=== PATIENT | male | born 1960 | race Caucasian/White ===

== ENCOUNTER 2020-10-11 13:00 | Inpatient (IN) | payer BC ==
[~2020-10-11] VITALS: Ht 182.9 cm; Wt 78.1 kg
[2020-10-11] VITALS (8 sets, daily range): BP systolic 94–118; BP diastolic 56–70
[2020-10-11] MEDS ORDERED: BENZTROPINE MESY1 MG PO (13:06)
[2020-10-11] MEDS ORDERED: CHRONULAC30 ML PO (13:07)
[2020-10-11] MEDS ORDERED: OS-CAL500 MG PO (13:07)
[2020-10-11] MEDS ORDERED: KLONOPIN1 MG PO (13:07)
[2020-10-11] MEDS ORDERED: LITHIUM CARBON300 MG PO (13:08)
[2020-10-11] MEDS ORDERED: PROTONIX40 MG PO (13:08)
[2020-10-11] MEDS ORDERED: SILVADENE20 GM TP (13:08)
[2020-10-11] MEDS ORDERED: ALDACTONE25 MG PO (13:09)
[2020-10-11] MEDS ORDERED: ULTRAM50 MG PO (13:09)
[2020-10-11] MEDS ORDERED: VITAMIN B-1100 M1 PO (13:09)
[2020-10-11] MEDS ORDERED: ZYPREXA20 MG PO (13:09)
[2020-10-11 13:46] LABS: CALC OSMOLALITY 297 mosm/kg (275-300); CALCIUM 9.4 mg/dL (8.5-10.1); CARBON DIOXIDE 26.6 mmol/L (21.0-32.0); CHLORIDE - SERUM 111 mmol/L (98-107); GLUCOSE 112 mg/dL (74-106); POTASSIUM - SERUM 3.7 mmol/L (3.5-5.1); SODIUM 148 mmol/L (136-145); UREA NITROGEN 20 mg/dL (7-18); eGFR NON AFRICAN AMERICAN 81 mL/min (90-120)
[2020-10-11 13:47] LABS: BASOPHILS 0.3 % (0-2); EOSINOPHILS 0.6 % (0-7); HEMATOCRIT 43.6 % (42.0-54.0); IMMATURE GRANULOCYTES 0.2 % (0-5); LYMPHOCYTE ABS# 1.96 10x3/uL (1.32-3.57); LYMPHOCYTES 17.1 % (15-50); MCH 31.3 pg (26.0-34.0); MCHC 32.1 g/dL (31.0-37.0); MCV 97.3 fL (80.0-100.0); MEAN PLATELET VOLUME 9.3 fL (7.4-10.4); MONOCYTES 14.5 % (2-11); NEUTROPHIL ABS# 7.72 10x3/uL (1.78-5.38); NEUTROPHILS 67.3 % (40-80); PLATELET COUNT 261 10x3/uL (130-400); RBC 4.48 10x6/uL (4.20-6.10); RDW 13.9 % (11.5-14.5); WBC 11.5 10x3/uL (4.8-10.8)
[2020-10-11 13:52] LABS: ALBUMIN 2.8 g/dL (3.4-5.0); ALKALINE PHOSPHATASE 154 U/L (30-120); ALT (SGPT) 27 U/L (10-68); AMYLASE - SERUM 32 U/L (25-115); BILIRUBIN - TOTAL 1.16 mg/dL (0.2-1.3); LIPASE 121 U/L (73-393); PROTEIN - SERUM 7.3 g/dL (6.4-8.2)
[2020-10-11 13:52] LABS: APTT 32.2 SECONDS (22.8-39.4); INR 1.32 (0.85-1.17); PROTIME 15.2 SECONDS (11.6-15.0)
[2020-10-11 14:01] LABS: UDS - AMPHET NEGATIVE QUAL (NEGATIVE); UDS - BARB NEGATIVE QUAL (NEGATIVE); UDS - BENZO NEGATIVE QUAL (NEGATIVE); UDS - COCAINE NEGATIVE QUAL (NEGATIVE); UDS - OPIATE NEGATIVE QUAL (NEGATIVE); UDS - PCP NEGATIVE QUAL (NEGATIVE); UDS - THC NEGATIVE QUAL (NEGATIVE)
[2020-10-11 14:22] LABS: BILIRUBIN NEGATIVE (NEGATIVE); KETONE SMALL mg/dL (NEGATIVE); NITRITE NEGATIVE (NEGATIVE); UROBILINOGEN 8 mg/dL (< 2); WHITE CELLS - URINE 0-5 HPF (0-1)
[2020-10-11 14:23] LABS: BACTERIA FEW HPF (NONE SEEN); SQUAMOUS EPITHELIAL 0-5 HPF (0-4)
[2020-10-11 22:16] LABS: CKMB 0.3 U/L (0.0-3.6); CREATINE KINASE 150 UL (21-232)
[2020-10-11 22:17] LABS: TROPONIN-I < 0.017 ng/mL (0.000-0.060)
[2020-10-12] VITALS (9 sets, daily range): BP systolic 90–139; BP diastolic 50–83; BMI 23.0
[2020-10-12 07:12] LABS: BASOPHILS 0.4 % (0-2); EOSINOPHILS 1.3 % (0-7); HEMATOCRIT 40.7 % (42.0-54.0); IMMATURE GRANULOCYTES 0.2 % (0-5); LYMPHOCYTE ABS# 1.67 10x3/uL (1.32-3.57); LYMPHOCYTES 16.3 % (15-50); MCHC 31.9 g/dL (31.0-37.0); MCV 96.9 fL (80.0-100.0); MEAN PLATELET VOLUME 9.2 fL (7.4-10.4); MONOCYTES 12.5 % (2-11); NEUTROPHIL ABS# 7.11 10x3/uL (1.78-5.38); NEUTROPHILS 69.3 % (40-80); PLATELET COUNT 247 10x3/uL (130-400); RDW 13.9 % (11.5-14.5); WBC 10.3 10x3/uL (4.8-10.8)
--- NOTE | 2020-10-12 07:23 | NUR ---
REPORT RECEIVED FROM ALY HIDALGO. PATIENT CALM, NO ACUTE DISTRESS.
[2020-10-12 07:30] LABS: ALBUMIN 2.4 g/dL (3.4-5.0); ALKALINE PHOSPHATASE 139 U/L (30-120); ALT (SGPT) 23 U/L (10-68); BILIRUBIN - TOTAL 1.01 mg/dL (0.2-1.3); CALC OSMOLALITY 291 mosm/kg (275-300); CALCIUM 8.9 mg/dL (8.5-10.1); CARBON DIOXIDE 26.6 mmol/L (21.0-32.0); CHLORIDE - SERUM 113 mmol/L (98-107); CKMB 0.3 U/L (0.0-3.6); CREATINE KINASE 121 UL (21-232); CREATININE - SERUM 0.8 mg/dL (0.6-1.3); GLUCOSE 126 mg/dL (74-106); MAGNESIUM - SERUM 2.6 mg/dL (1.8-2.4); PHOSPHOROUS 2.7 mg/dL (2.5-4.9); POTASSIUM - SERUM 3.3 mmol/L (3.5-5.1); PRO BNP 517 pg/mL (0-125); PROTEIN - SERUM 6.7 g/dL (6.4-8.2); SODIUM 145 mmol/L (136-145); THYROID STIMULATING HORMONE 0.97 uIU/mL (0.36-3.74); TROPONIN-I < 0.017 ng/mL (0.000-0.060); UREA NITROGEN 16 mg/dL (7-18); eGFR NON AFRICAN AMERICAN > 90 mL/min (90-120)
--- NOTE | 2020-10-12 09:09 | NUR ---
NURSING ROUND [id number]. NAD. NO COMPLAINTS. BED ALARM IN USE, IVF INFUSING, IV PATENT. CONFUSED, CALM, COOPERATIVE.
--- NOTE | 2020-10-12 09:58 | NUR ---
ROUNDING SPRINKLING SYSTEM IRRIGATOR NOTIFIED THAT PATIENT IS HAVING DIFFICULTY TOLERATING PO LACTULOSE.
[2020-10-12 10:05] LABS: CKMB 0.4 U/L (0.0-3.6); CREATINE KINASE 117 UL (21-232); TROPONIN-I < 0.017 ng/mL (0.000-0.060)
--- NOTE | 2020-10-12 10:12 | NUR ---
[facility] NOTIFIED OF PATIENT STATUS.
--- NOTE | 2020-10-12 11:21 | NUR ---
NAD. PATIENT AWAKE, CONFUSED.
--- NOTE | 2020-10-12 13:03 | NUR ---
, Susie PORTILLO, NOTIFIED OF PATIENT STATUS.
--- NOTE | 2020-10-12 13:06 | NUR ---
DR POWERS NOTIFIED THAT POTASSIUM LEVEL IS 2.9.
[2020-10-13 01:00] VITALS: BP 111/80
[2020-10-13 03:30] VITALS: BP 108/66
[2020-10-13 09:27] LABS: BASOPHILS 0.5 % (0-2); EOSINOPHILS 3.9 % (0-7); HEMATOCRIT 44.3 % (42.0-54.0); HEMOGLOBIN 14.2 g/dL (13.5-17.5); IMMATURE GRANULOCYTES 0.1 % (0-5); LYMPHOCYTE ABS# 1.84 10x3/uL (1.32-3.57); LYMPHOCYTES 21.9 % (15-50); MCH 30.7 pg (26.0-34.0); MCHC 32.1 g/dL (31.0-37.0); MCV 95.9 fL (80.0-100.0); MEAN PLATELET VOLUME 9.4 fL (7.4-10.4); MONOCYTES 7.7 % (2-11); NEUTROPHIL ABS# 5.54 10x3/uL (1.78-5.38); NEUTROPHILS 65.9 % (40-80); PLATELET COUNT 246 10x3/uL (130-400); RBC 4.62 10x6/uL (4.20-6.10); RDW 13.7 % (11.5-14.5); WBC 8.4 10x3/uL (4.8-10.8)
[2020-10-13 09:44] LABS: ALBUMIN 2.4 g/dL (3.4-5.0); ALKALINE PHOSPHATASE 141 U/L (30-120); ALT (SGPT) 24 U/L (10-68); BILIRUBIN - TOTAL 0.82 mg/dL (0.2-1.3); CALC OSMOLALITY 292 mosm/kg (275-300); CHLORIDE - SERUM 113 mmol/L (98-107); CREATININE - SERUM 0.7 mg/dL (0.6-1.3); GLUCOSE 101 mg/dL (74-106); MAGNESIUM - SERUM 2.2 mg/dL (1.8-2.4); PHOSPHOROUS 3.2 mg/dL (2.5-4.9); POTASSIUM - SERUM 3.4 mmol/L (3.5-5.1); SODIUM 147 mmol/L (136-145); UREA NITROGEN 14 mg/dL (7-18); eGFR NON AFRICAN AMERICAN > 90 mL/min (90-120)
[2020-10-13 16:24] LABS: INR 1.25 (0.85-1.17); PROTIME 14.5 SECONDS (11.6-15.0)
--- NOTE | 2020-10-13 17:20 | NUR ---
CALLED [facility] AND SPOKE TO BARBARA. PATIENT LAST TOOK MEDICATIONS THU NIGHT AND HAS NOT HAD ANYTHING ON THURSDAY BEFORE COMING TO HOSPITAL
[2020-10-13 19:37] VITALS: BP 119/76; BMI 20.7
[2020-10-13 19:54] VITALS: BP 143/97
--- NOTE | 2020-10-13 22:30 | NUR ---
ATTEMPTED MULTIPLE TIMES LAST NIGHT TO GIVE PT LACTULOSE, PT REFUSED AND TRIED TO KICK THIS NURSE
--- NOTE | 2020-10-14 04:41 | NUR ---
I have reviewed this patient and I concur with the Shift Assessment completed by the Licensed Practical Nurse today this shift.
[2020-10-14 05:52] VITALS: BP 127/86
[2020-10-14 07:42] LABS: INR 1.21 (0.85-1.17); PROTIME 14.2 SECONDS (11.6-15.0)
[2020-10-14 07:52] LABS: ALBUMIN 2.3 g/dL (3.4-5.0); ALKALINE PHOSPHATASE 137 U/L (30-120); ALT (SGPT) 24 U/L (10-68); BILIRUBIN - TOTAL 0.63 mg/dL (0.2-1.3); CALC OSMOLALITY 289 mosm/kg (275-300); CALCIUM 9.2 mg/dL (8.5-10.1); CARBON DIOXIDE 24.7 mmol/L (21.0-32.0); CHLORIDE - SERUM 111 mmol/L (98-107); CREATININE - SERUM 0.6 mg/dL (0.6-1.3); GLUCOSE 94 mg/dL (74-106); PHOSPHOROUS 3.5 mg/dL (2.5-4.9); POTASSIUM - SERUM 3.6 mmol/L (3.5-5.1); PROTEIN - SERUM 6.2 g/dL (6.4-8.2); SODIUM 145 mmol/L (136-145); UREA NITROGEN 14 mg/dL (7-18); eGFR NON AFRICAN AMERICAN > 90 mL/min (90-120)
--- NOTE | 2020-10-14 09:26 | NUR ---
PT SITTING UP IN BED. RESP EVEN AND UNLABORED. PT IS RESTLESS AND FIDGETY WITH THINGS. DENIES PAIN. IV TO LEFT FOREARM WITH D51/2 NS @ 75ML/HR INFUSING VIA PUMP. SITE WITHOUT REDNESS OR EDEMA. GENERALIZED SCABS AND SORES, SKIN TEARS. DENIES NEEDS AT THIS TIME. CL WITH REACH. ENCOURAGED TO CALL WITH NEEDS. CONTINUE POC
[2020-10-14 11:25] VITALS: BP 114/68
[2020-10-14 13:27] LABS: BASOPHILS 0.8 % (0-2); EOSINOPHILS 4.3 % (0-7); HEMATOCRIT 43.2 % (42.0-54.0); HEMOGLOBIN 14.1 g/dL (13.5-17.5); IMMATURE GRANULOCYTES 0.1 % (0-5); LYMPHOCYTE ABS# 1.71 10x3/uL (1.32-3.57); MCH 30.9 pg (26.0-34.0); MCHC 32.6 g/dL (31.0-37.0); MCV 94.7 fL (80.0-100.0); MEAN PLATELET VOLUME 9.8 fL (7.4-10.4); MONOCYTES 9.2 % (2-11); NEUTROPHIL ABS# 5.62 10x3/uL (1.78-5.38); NEUTROPHILS 65.6 % (40-80); PLATELET COUNT 246 10x3/uL (130-400); RBC 4.56 10x6/uL (4.20-6.10); RDW 13.5 % (11.5-14.5); WBC 8.6 10x3/uL (4.8-10.8)
[2020-10-14 18:13] VITALS: BP 136/92
--- NOTE | 2020-10-14 19:28 | NUR ---
RECEIVED REPORT, ASSUMED CARE, BREATHING EVEN UNLABORED, IV PATENT, DENIES NEEDS, CALL LIGHT IN REACH, BED LOWEST POSITION, REPOSITIONED IN BED, ENCOURAGED PT TO NOTIFY STAFF OF ANY NEEDS
--- NOTE | 2020-10-15 00:38 | NUR ---
SLEEPING, NO S/S OF DISTRESS NOTED, BREATHING EVEN UNLABORED
[2020-10-15 07:16] LABS: INR 1.14 (0.85-1.17); PROTIME 13.5 SECONDS (11.6-15.0)
[2020-10-15 07:20] LABS: ALBUMIN 2.1 g/dL (3.4-5.0); ALKALINE PHOSPHATASE 121 U/L (30-120); ALT (SGPT) 23 U/L (10-68); BILIRUBIN - TOTAL 0.44 mg/dL (0.2-1.3); CALC OSMOLALITY 280 mosm/kg (275-300); CALCIUM 8.7 mg/dL (8.5-10.1); CARBON DIOXIDE 26.9 mmol/L (21.0-32.0); CHLORIDE - SERUM 109 mmol/L (98-107); CREATININE - SERUM 0.6 mg/dL (0.6-1.3); GLUCOSE 93 mg/dL (74-106); MAGNESIUM - SERUM 2.1 mg/dL (1.8-2.4); PHOSPHOROUS 3.8 mg/dL (2.5-4.9); POTASSIUM - SERUM 3.3 mmol/L (3.5-5.1); PROTEIN - SERUM 6.3 g/dL (6.4-8.2); SODIUM 141 mmol/L (136-145); UREA NITROGEN 12 mg/dL (7-18); eGFR NON AFRICAN AMERICAN > 90 mL/min (90-120)
[2020-10-15 07:21] LABS: BASOPHILS 0.8 % (0-2); EOSINOPHILS 4.5 % (0-7); HEMATOCRIT 40.8 % (42.0-54.0); HEMOGLOBIN 13.5 g/dL (13.5-17.5); LYMPHOCYTE ABS# 1.84 10x3/uL (1.32-3.57); LYMPHOCYTES 27.8 % (15-50); MCH 30.8 pg (26.0-34.0); MCHC 33.1 g/dL (31.0-37.0); MCV 92.9 fL (80.0-100.0); MEAN PLATELET VOLUME 9.5 fL (7.4-10.4); MONOCYTES 7.7 % (2-11); NEUTROPHIL ABS# 3.93 10x3/uL (1.78-5.38); NEUTROPHILS 59.2 % (40-80); PLATELET COUNT 247 10x3/uL (130-400); RBC 4.39 10x6/uL (4.20-6.10); RDW 13.3 % (11.5-14.5); WBC 6.6 10x3/uL (4.8-10.8)
--- NOTE | 2020-10-15 08:13 | NUR ---
IN BED, DENIES NEEDS AT THIS TIME. BED LOW POSITION, CALL LIGHT IN REACH. WILL CONTINUE TO MONITOR.
[2020-10-15 09:10] VITALS: BP 113/64
[2020-10-15 12:56] VITALS: BP 101/66
[2020-10-15 17:16] VITALS: BP 116/78
--- NOTE | 2020-10-15 19:45 | NUR ---
RECEIVED BEDSIDE REPORT. PT LAYING IN BED ORIENTATED TO SELF. PIV TO RIGHT HAND PATENT AND S/L, NO REDNESS OR SWELLING. GENERALIZED SCABS/SORES ON ALL EXTREMITIES. PT SPEECH GARBLED AND APPEARS TO BE TLINGIT & HAIDA. PT UNABLE TO AMBULATE, BEDFAST AND TOTAL CARE. BED LOW, ALARM ON, CL IN REACH. WILL CONTINUE TO MONITOR.
[2020-10-15 20:00] VITALS: BP 93/46
[2020-10-16] VITALS: BP 101/42
--- NOTE | 2020-10-16 02:14 | NUR ---
K 9 HANDLER/ DEPUTY ASSISTED WITH BED BATH, FULL LININ AND GOWN CHANGE, TOLERATED WELL. BED LOW, ALARM ON, CL IN REACH.
[2020-10-16 04:00] VITALS: BP 105/67
--- NOTE | 2020-10-16 05:24 | NUR ---
COLLECTED URINE SPECIMAN VIA IN AND OUT CATH, USED STERILE TECHN, GOOD RETURN, PT TOLERATED WELL. SENT URINE TO LAB. BED LOW, ALARM ON, CL IN REACH.
[2020-10-16 07:22] LABS: BASOPHILS 0.4 % (0-2); EOSINOPHILS 2.8 % (0-7); HEMOGLOBIN 14.3 g/dL (13.5-17.5); IMMATURE GRANULOCYTES 0.1 % (0-5); LYMPHOCYTE ABS# 1.55 10x3/uL (1.32-3.57); LYMPHOCYTES 19.4 % (15-50); MCH 30.6 pg (26.0-34.0); MCHC 32.5 g/dL (31.0-37.0); MEAN PLATELET VOLUME 9.6 fL (7.4-10.4); NEUTROPHIL ABS# 5.55 10x3/uL (1.78-5.38); NEUTROPHILS 69.3 % (40-80); PLATELET COUNT 268 10x3/uL (130-400); RBC 4.68 10x6/uL (4.20-6.10); RDW 13.7 % (11.5-14.5)
[2020-10-16 07:24] LABS: INR 1.23 (0.85-1.17); PROTIME 14.4 SECONDS (11.6-15.0)
[2020-10-16 07:43] LABS: ALBUMIN 2.3 g/dL (3.4-5.0); ALKALINE PHOSPHATASE 130 U/L (30-120); ALT (SGPT) 23 U/L (10-68); BILIRUBIN - TOTAL 0.46 mg/dL (0.2-1.3); CALC OSMOLALITY 290 mosm/kg (275-300); CALCIUM 8.7 mg/dL (8.5-10.1); CARBON DIOXIDE 22.7 mmol/L (21.0-32.0); CHLORIDE - SERUM 112 mmol/L (98-107); CREATININE - SERUM 0.7 mg/dL (0.6-1.3); GLUCOSE 96 mg/dL (74-106); MAGNESIUM - SERUM 2.2 mg/dL (1.8-2.4); PHOSPHOROUS 3.5 mg/dL (2.5-4.9); POTASSIUM - SERUM 3.4 mmol/L (3.5-5.1); PROTEIN - SERUM 6.6 g/dL (6.4-8.2); SODIUM 146 mmol/L (136-145); UREA NITROGEN 12 mg/dL (7-18); eGFR NON AFRICAN AMERICAN > 90 mL/min (90-120)
--- NOTE | 2020-10-16 07:56 | NUR ---
IN BED SLEEPING. AROUSES TO VOICE. FREE FROM SIGNS OF DISTRESS. CONFUSED TO PERSON, PLACE, TIME, AND SITUATION. BED ALARM ON. BED LOW POSITION, CALL LIGHT IN REACH. WILL CONTINUE TO MONITOR.
[2020-10-16 08:48] VITALS: BP 123/60
--- NOTE | 2020-10-16 13:00 | NUR ---
PATIENT REFUSED TO EAT LUNCH. OFFERED THREE TIMES. WOULD MUMBLE INCOMPREHENSIBLE WORDS AND GO BACK TO SLEEP. NO SIGNS OF DISTRESS. WILL CONTINUE TO MONITOR.
[2020-10-16 13:14] VITALS: BP 151/67
--- NOTE | 2020-10-16 13:40 | NUR ---
Nutrition Re-assessment Patient confused, paranoid, and agitated per MD notes. Patient was asleep in bed, lunch tray had been untouched at time of RD visit. There was a bottle of Ensure on tray. Diet: Regular PO intake: 10-100% x 2 meals recorded on 10/14/20. Last BM: 10/14/20 x 2. Wt: 152.8# (10/13/20)- bedscale Meds noted: lactulose, D5-1/@NS@75 Labs noted: Na 146(H), K 3.4(L), alb 2.3(L), NH3 42(H), alk phos 130(H) Nutrition needs: [id number] kingston (25-30kcal/kg), 45-75gms pro (0.6-1), 1925-2325mL fluids (or per MD) Nutrition diagnosis: Inadequate energy intake r/t AMS AEB PO intake varied 0-10-100% of meals. Recommendations: -Continue current diet -Will continue to honor food preferences -Offer oral nutrition supplements -RD will continue to monitor PO intake and wt trend -RD will follow-up 10/19/20
[2020-10-16 18:05] VITALS: BP 117/65
[2020-10-16 20:00] VITALS: BP 101/61
[2020-10-17 04:00] VITALS: BP 98/58
[2020-10-17 07:33] LABS: BASOPHILS 0.2 % (0-2); EOSINOPHILS 0.8 % (0-7); HEMATOCRIT 44.8 % (42.0-54.0); HEMOGLOBIN 14.6 g/dL (13.5-17.5); IMMATURE GRANULOCYTES 0.3 % (0-5); LYMPHOCYTE ABS# 1.55 10x3/uL (1.32-3.57); LYMPHOCYTES 9.9 % (15-50); MCH 30.6 pg (26.0-34.0); MCHC 32.6 g/dL (31.0-37.0); MCV 93.9 fL (80.0-100.0); MEAN PLATELET VOLUME 10.4 fL (7.4-10.4); MONOCYTES 6.7 % (2-11); NEUTROPHIL ABS# 12.82 10x3/uL (1.78-5.38); NEUTROPHILS 82.1 % (40-80); PLATELET COUNT 271 10x3/uL (130-400); RBC 4.77 10x6/uL (4.20-6.10); RDW 13.5 % (11.5-14.5)
[2020-10-17 07:34] LABS: ALBUMIN 2.5 g/dL (3.4-5.0); ALKALINE PHOSPHATASE 144 U/L (30-120); ALT (SGPT) 21 U/L (10-68); CALC OSMOLALITY 277 mosm/kg (275-300); CALCIUM 8.9 mg/dL (8.5-10.1); CARBON DIOXIDE 23.3 mmol/L (21.0-32.0); CHLORIDE - SERUM 108 mmol/L (98-107); CREATININE - SERUM 0.7 mg/dL (0.6-1.3); GLUCOSE 99 mg/dL (74-106); MAGNESIUM - SERUM 2.1 mg/dL (1.8-2.4); POTASSIUM - SERUM 3.6 mmol/L (3.5-5.1); PROTEIN - SERUM 7.1 g/dL (6.4-8.2); SODIUM 140 mmol/L (136-145); UREA NITROGEN 11 mg/dL (7-18); eGFR NON AFRICAN AMERICAN > 90 mL/min (90-120)
[2020-10-17 07:35] LABS: PHOSPHOROUS 2.6 mg/dL (2.5-4.9)
[2020-10-17 07:46] LABS: WBC 15.6 10x3/uL (4.8-10.8)
[2020-10-17 09:07] VITALS: BP 94/59
--- NOTE | 2020-10-17 10:35 | NUR ---
RESTING IN BED, CONFUSED, TOOK PO MEDS CRUSHED, CONT TO MONITOR CONFUSION AND INTAKE, CONDOM BOWEN IN PLACE
[2020-10-17 11:51] LABS: INR 1.25 (0.85-1.17); PROTIME 14.5 SECONDS (11.6-15.0)
[2020-10-17 13:09] VITALS: BP 112/60
--- NOTE | 2020-10-17 13:24 | MORECARE ---
CASE MANAGEMENT DISCHARGE SUMMARY PATIENT: REBECCA PORTILLO UNIT: [id number] ADM DATE: 10/11/20 AGE: 60 : 64 SEX: M ROOM/BED: D.2233 AUTHOR: SHERRILL NORMAN PHYSICIAN: REFERRING PHYSICIAN: JULIANNA LANE MD DATE OF SERVICE: 10/17/20 Discharge Plan Patient Name: REBECCA PORTILLO [facility] [facility] 1960 Planned Disposition: Anticipated Discharge Date: Discharge Date: Expected LOS: Initial Reviewer: [email or web address] Initial Review Date: 10/11/2020 Generated: 10/17/20 2:23 pm DCPIA - Discharge Planning Initial Assessment Updated by [id number]: Rianna Kline on 10/17/20 1:22 pm * PCP [facility] * Facility Name [facility] * Additional services required to return to the preadmission environment? Yes * Can the patient safely return to the preadmission environment? Yes * Has this patient been hospitalized within the prior 30 days at any hospital? No Patient Name: REBECCA PORTILLO Page 51329 at 1324 All edits/amendments must be made on the electronic document DICTATION DATE: 10/17/20 132 PHYSICAL THERAPIST CENTER MANAGER: ELSI 10/17/20 1323 RPT#: [id number] DC DATE: STATUS: ADM IN [facility] [address] [place] [address] END OF REPORT
--- NOTE | 2020-10-17 13:31 | MORECARE ---
CASE MANAGEMENT DISCHARGE SUMMARY PATIENT: REBECCA PORTILLO UNIT: [id number] ADM DATE: 10/11/20 AGE: 60 : 64 SEX: M ROOM/BED: D.2233 AUTHOR: SHERRILL NORMAN PHYSICIAN: REFERRING PHYSICIAN: JULIANNA LANE MD DATE OF SERVICE: 10/17/20 Discharge Plan Patient Name: REBECCA PORTILLO [facility] [facility] 1960 Planned Disposition: Anticipated Discharge Date: Discharge Date: Expected LOS: Initial Reviewer: [email or web address] Initial Review Date: 10/11/2020 Generated: 10/17/20 2:30 pm DCPIA - Discharge Planning Initial Assessment Updated by [email or web address]: Rianna Kline on 10/17/20 1:22 pm * PCP [facility] * Facility Name [facility] * Additional services required to return to the preadmission environment? Yes * Can the patient safely return to the preadmission environment? Yes * Has this patient been hospitalized within the prior 30 days at any hospital? No External Providers External Provider: OTHER-OTHER Next Contact Date: Service Request Date: Service Type: Resolution: Reviewer: Comments: Last DP export: 10/17/20 12:24 p Patient Name: REBECCA PORTILLO Page [phone] at 1331 All edits/amendments must be made on the electronic document DICTATION DATE: 10/17/20 1330 HEBREW PROFESSOR: ELSI 10/17/20 1330 RPT#: [id number] DC DATE: STATUS: ADM IN [facility] [address] [place] [address] END OF REPORT
--- NOTE | 2020-10-17 13:40 | MORECARE ---
CASE MANAGEMENT DISCHARGE SUMMARY PATIENT: REBECCA PORTILLO UNIT: [id number] ADM DATE: 10/11/20 AGE: 60 : 64 SEX: M ROOM/BED: D.2233 AUTHOR: SHERRILL NORMAN PHYSICIAN: REFERRING PHYSICIAN: JULIANNA LANE MD DATE OF SERVICE: 10/17/20 Discharge Plan Patient Name: REBECCA PORTILLO Facility: [facility]:[place] : 1960 Planned Disposition: Anticipated Discharge Date: Discharge Date: Expected LOS: Initial Reviewer: [email or web address] Initial Review Date: 10/11/2020 Generated: 10/17/20 2:39 pm Comments DCP- Discharge Planning Updated by [email or web address]: Rianna Kline on 10/17/20 12:[address] Patient Name: REBECCA PORTILLO Admission Status: ER Accout number: [id number] Admission Date: 10-11-2020 : 1960 Admission Diagnosis:METABOLIC ENCEPHALOPATHY Attending: JULIANNA JACK Current LOS: 6 Anticipated DC Date: Planned Disposition: Primary Insurance: [employer] [place] PPO Discharge Planning Comments: I HAVE CALLED [facility] FOR POSSIBLE NEED FOR INPATIENT PSYCH. I SPOKE WITH HIRAM. I HAVE FAXED THEM THE CLINICALS AND WAITING CALL BACK. CM TO FOLLOW AND ASSIST NEEDED. I HAVE ORDERED A PCR COVID FOR PLACEMENT REASONS, IF [facility] AGREES TO TAKE HIM THEY MAY ONLY REQUIRE RAPID. I AM WAITING TO HEAR BACK. Lymphedema Therapist: Rianna Kline DCPIA - Discharge Planning Initial Assessment Updated by [email or web address]: Rianna Kline on 10/17/20 1:22 pm * PCP [facility] * Facility Name [facility] * Additional services required to return to the preadmission environment? Yes * Can the patient safely return to the preadmission environment? Yes * Has this patient been hospitalized within the prior 30 days at any hospital? No External Providers External Provider: OTHER-OTHER Next Contact Date: Service Request Date: Service Type: Resolution: Reviewer: Comments: Last DP export: 10/17/20 12:31 p Patient Name: REBECCA PORTILLO Page 32883 at 1340 All edits/amendments must be made on the electronic document DICTATION DATE: 10/17/201339 BOOM CONVEYOR OPERATOR: ELSI 10/17/20 1340 RPT#: [id number] DC DATE: STATUS: ADM IN [facility] [address] [place] [address] END OF REPORT
[2020-10-17 16:22] LABS: BILIRUBIN NEGATIVE (NEGATIVE); KETONE NEGATIVE (NEGATIVE); NITRITE NEGATIVE (NEGATIVE); UROBILINOGEN NORMAL mg/dL (< 2)
[2020-10-17 16:23] LABS: BACTERIA MODERATE HPF (NONE SEEN); WHITE CELLS - URINE 25-50 HPF (0-1)
[2020-10-17 17:22] VITALS: BP 96/62
[2020-10-17 18:30] LABS: CALC OSMOLALITY 276 mosm/kg (275-300); CALCIUM 8.7 mg/dL (8.5-10.1); CARBON DIOXIDE 26.4 mmol/L (21.0-32.0); CHLORIDE - SERUM 107 mmol/L (98-107); CREATININE - SERUM 0.7 mg/dL (0.6-1.3); GLUCOSE 95 mg/dL (74-106); POTASSIUM - SERUM 3.7 mmol/L (3.5-5.1); SODIUM 139 mmol/L (136-145); UREA NITROGEN 11 mg/dL (7-18); eGFR NON AFRICAN AMERICAN > 90 mL/min (90-120)
--- NOTE | 2020-10-17 19:18 | NUR ---
PT HAS SPENT MUCH OF THIS PM SLEEPING, TREATMENT FOR UTI STARTED, CONT TO MONITOR, FAMILY AT BEDSIDE
--- NOTE | 2020-10-17 19:45 | NUR ---
RECEIVED BEDSIDE REPORT. PT LAYING IN BED, AROUSES TO VOICE, APPEARS LETHARGIC. PIV TO RIGHT HAND PATENT AND INFUSING, NO REDNESS OR SWELLING. SCABS/SORES GENERALIZED ALL EXTREMITIES. CONDOM CATHETER IN PLACE, DRAINING TO GRAVITY. PT BEDFAST, UNABLE TO AMBULATE. BED LOW, ALARM ON, CL IN REACH.
[2020-10-17 20:00] VITALS: BP 91/63
[2020-10-18] VITALS: BP 101/65
--- NOTE | 2020-10-18 02:45 | NUR ---
PT LAYING IN BED EYES CLOSED, EVEN RESPIRATIONS, NO SIGNS OF DISTRESS. BED LOW, CL IN REACH.
[2020-10-18 04:00] VITALS: BP 83/52
[2020-10-18 06:58] LABS: INR 1.27 (0.85-1.17); PROTIME 14.8 SECONDS (11.6-15.0)
--- NOTE | 2020-10-18 07:20 | NUR ---
PT IS RESTING IN BED WITH EYES CLOSED. RESPIRATIONS ARE EVEN AND UNLABORED. PT REFUSES TO OPEN EYES WITH VERBAL STIMULATION AND WILL NOT RESPOND TO QUESTIONING. TACTILE STIMULATION PROVIDED AND PT WAS AROUSABLE BUT CONT TO KEEP EYES CLOSED. PT STATES "OUCH!" AND STARTED YELLING PROFANITIES. PT ENCOURAGED TO REMAIN CALM AND EDUCATED ON PLAN OF CARE. PT DOES NOT ANSWER QUESTIONS APPROPRIATLEY AND REFUSES TO COMMUNICATE AT THIS TIME. FALL PRECAUTIONS IN PLACE. BED IS IN THE LOWEST POSITION. CALL LIGHT AND BEDSIDE TABLE ARE WITHIN REACH. SIDE RAILS X 2. PT DENIES FURTHER NEEDS. WILL CONT TO MONITOR.
[2020-10-18 08:17] VITALS: BP 109/54
--- NOTE | 2020-10-18 08:54 | PN ---
PATIENT:REBECCA PORTILLO MEDICAL RECORD: [id number] LOCATION:D.[facility] ADMISSION DATE: 10/11/20 PROGRESS NOTE DATE OF SERVICE: 10/17/2020 SUBJECTIVE: The patient's case was discussed with staff. He has no new complaint. OBJECTIVE: The patient has not been significantly agitated today. He is tolerating his medicines well and has no thoughts of harming himself or others. ASSESSMENT: Bipolar disorder. PLAN: Current medications have been reviewed and will be maintained. I am going to order another lithium level. TRANSINT:[id number] Voice Confirmation ID: [id number] DOCUMENT ID: [id number] JASS HUBBARD MD at 0854 CC: [id number] DICTATION DATE: 10/17/20 165 BIOLOGICAL PHOTOGRAPHER: 10/18/20 0112 ADM IN [facility] [address] [place] [address]
[2020-10-18 09:26] LABS: CALC OSMOLALITY 277 mosm/kg (275-300); CALCIUM 8.8 mg/dL (8.5-10.1); CARBON DIOXIDE 26.2 mmol/L (21.0-32.0); CHLORIDE - SERUM 106 mmol/L (98-107); CREATININE - SERUM 0.7 mg/dL (0.6-1.3); GLUCOSE 94 mg/dL (74-106); POTASSIUM - SERUM 3.4 mmol/L (3.5-5.1); SODIUM 140 mmol/L (136-145); UREA NITROGEN 11 mg/dL (7-18); eGFR NON AFRICAN AMERICAN > 90 mL/min (90-120)
[2020-10-18 09:28] LABS: HEMATOCRIT 40.3 % (42.0-54.0); HEMOGLOBIN 13.1 g/dL (13.5-17.5); LYMPHOCYTES 16.4 % (15-50); MCH 30.6 pg (26.0-34.0); MCHC 32.5 g/dL (31.0-37.0); MCV 94.2 fL (80.0-100.0); MEAN PLATELET VOLUME 10.6 fL (7.4-10.4); NEUTROPHILS 74.1 % (40-80); PLATELET COUNT 227 10x3/uL (130-400); RBC 4.28 10x6/uL (4.20-6.10); RDW 13.8 % (11.5-14.5)
[2020-10-18 09:31] LABS: WBC 10.9 10x3/uL (4.8-10.8)
[2020-10-18 09:32] LABS: ALBUMIN 2.2 g/dL (3.4-5.0); ALKALINE PHOSPHATASE 132 U/L (30-120); ALT (SGPT) 20 U/L (10-68); BILIRUBIN - TOTAL 0.41 mg/dL (0.2-1.3); PROTEIN - SERUM 6.4 g/dL (6.4-8.2)
--- NOTE | 2020-10-18 09:42 | NUR ---
PT IS UNCOOPERATIVE WITH COMPLETE MEDICATION ADMINISTRATION. SEE EMAR FOR MEDS ADMINISTERED AND MEDS REFUSED. PT WILL NOT OPEN EYES BUT WILL TALK IN A GARBLED TONE. WHEN TACTILE STIMULATION PROVIDED PT STARTS SHOUTING PROFANITIES AND WAVING ARMS IN THE AIR. PT CONT TO KEEP EYES CLOSED. PT ENCOURAGED TO COMPLETE MEDICATION BUT PT REFUSES. FALL PRECAUTIONS IN PLACE. BED IS IN THE LOWEST POSITION. CALL LIGHT AND BEDSIDE TABLE ARE WITHIN REACH. SIDE RAILS X 2. WILL CONT TO MONITOR.
[2020-10-18 12:56] VITALS: BP 109/56
--- NOTE | 2020-10-18 14:32 | MORECARE ---
CASE MANAGEMENT DISCHARGE SUMMARY PATIENT: REBECCA PORTILLO UNIT: [id number] ADM DATE: 10/11/20 AGE: 60 : 64 SEX: M ROOM/BED: D.2233 AUTHOR: SHERRILL NORMAN PHYSICIAN: REFERRING PHYSICIAN: JULIANNA LANE MD DATE OF SERVICE: 10/18/20 Discharge Plan Patient Name: REBECCA PORTILLO Facility: [facility]:[place] : 1960 Planned Disposition: Anticipated Discharge Date: Discharge Date: Expected LOS: Initial Reviewer: [email or web address] Initial Review Date: 10/11/2020 Generated: 10/18/20 3:31 pm Comments DCP- Discharge Planning Updated by [email or web address]: Teresa Alfredo on 10/18/20 1:[address] TELEPHONE CALL TO [facility].NO ANSWER. UNABLE TO LEAVE A MESSAGE. WILL CALL BACK. CXR WITH SUBSEGEMENTAL ATELECTASIS- START UPDRAFTS AND MUCINEX. SARS -COV2 RESULTS PENDING.B/P 89/54 - 109/56. PHYSICAL THERAPY WAS UNABLE TO AMBULATE SECONDARY TO CONFUSION, INABILITY TO FOLLOW COMMANDS OR ANSWER QUESTIONS. AWAIT THERAPY NOTES TODAY. AWAIT [facility] APPROVAL FOR ADMISSION TO [facility]. DCP- Discharge Planning Updated by [id number]: Rianna Kline on 10/17/20 12:[address] Patient Name: REBECCA PORTILLO Admission Status: ER Accout number: [id number] Admission Date: 10-11-2020 : 1960 Admission Diagnosis:METABOLIC ENCEPHALOPATHY Attending: JULIANNA JACK Current LOS: 6 Anticipated DC Date: Planned Disposition: Primary Insurance: [employer] [place] PPO Discharge Planning Comments: I HAVE CALLED [facility] FOR POSSIBLE NEED FOR INPATIENT PSYCH. I SPOKE WITH HIRAM. I HAVE FAXED THEM THE CLINICALS AND WAITING CALL BACK. CM TO FOLLOW AND ASSIST NEEDED. I HAVE ORDERED A PCR COVID FOR PLACEMENT REASONS, IF [place] AGREES TO TAKE HIM THEY MAY ONLY REQUIRE RAPID. I AM WAITING TO HEAR BACK. Pearl Diver: Rianna Kline DCPIA - Discharge Planning Initial Assessment Updated by [email or web address]: Rianna Kline on 10/17/20 1:22 pm * PCP [facility] * Facility Name [facility] * Additional services required to return to the preadmission environment? Yes * Can the patient safely return to the preadmission environment? Yes * Has this patient been hospitalized within the prior 30 days at any hospital? No Last DP export: 10/17/20 12:40 p Patient Name: REBECCA PORTILLO Page 10305 at 1432 All edits/amendments must be made on the electronic document DICTATION DATE: 10/18/201430 LAWYER [employer]STATE: ELSI 10/18/201430 RPT#: [id number] DC DATE: STATUS: ADM IN [facility] [address] [place] [address] END OF REPORT
--- NOTE | 2020-10-18 14:39 | MORECARE ---
CASE MANAGEMENT DISCHARGE SUMMARY PATIENT: REBECCA PORTILLO UNIT: [id number] ADM DATE: 10/11/20 AGE: 60 : 64 SEX: M ROOM/BED: D.2233 AUTHOR: SHERRILL NORMAN PHYSICIAN: REFERRING PHYSICIAN: JULIANNA LANE MD DATE OF SERVICE: 10/18/20 Discharge Plan Patient Name: REBECCA PORTILLO Facility: [facility]:[place] : 1960 Planned Disposition: Anticipated Discharge Date: Discharge Date: Expected LOS: Initial Reviewer: [email or web address] Initial Review Date: 10/11/2020 Generated: 10/18/20 3:38 pm Comments DCP- Discharge Planning Updated by [email or web address]: Teresa Alfredo on 10/18/20 1:[address] PATIENT IS SCHEDULED FOR CATH TODAY. HE IS PRESENTLY IN THE [facility] FLOOR.. AWAIT RESULTS. POSSIBLE DISCHARGE. DCP- Discharge Planning Updated by [email or web address]: Teresa Alfredo on 10/18/20 1:[address] TELEPHONE CALL TO [facility].NO ANSWER. UNABLE TO LEAVE A MESSAGE. WILL CALL BACK. CXR WITH SUBSEGEMENTAL ATELECTASIS- START UPDRAFTS AND MUCINEX. SARS -COV2 RESULTS PENDING.B/P 89/54 - 109/56. PHYSICAL THERAPY WAS UNABLE TO AMBULATE SECONDARY TO CONFUSION, INABILITY TO FOLLOW COMMANDS OR ANSWER QUESTIONS. AWAIT THERAPY NOTES TODAY. AWAIT [facility] APPROVAL FOR ADMISSION TO [facility]. DCP- Discharge Planning Updated by [email or web address]: Riannamarita Kline on 10/17/20 12:[address] Patient Name: REBECCA PORTILLO Admission Status: ER Accout number: [id number] Admission Date: 10-11-2020 : 1960 Admission Diagnosis:METABOLIC ENCEPHALOPATHY Attending: JULIANNA JACK Current LOS: 6 Anticipated DC Date: Planned Disposition: Primary Insurance: [employer] [facility] Discharge Planning Comments: I HAVE CALLED [facility] FOR POSSIBLE NEED FOR INPATIENT PSYCH. I SPOKE WITH HIRAM. I HAVE FAXED THEM THE CLINICALS AND WAITING CALL BACK. CM TO FOLLOW AND ASSIST NEEDED. I HAVE ORDERED A PCR COVID FOR PLACEMENT REASONS, IF [facility] AGREES TO TAKE HIM THEY MAY ONLY REQUIRE RAPID. I AM WAITING TO HEAR BACK. Websphere Administrator: Rianna Kline DCPIA - Discharge Planning Initial Assessment Updated by [email or web address]: Rianna Kline on 10/17/20 1:22 pm * PCP [facility] * Facility Name [facility] * Additional services required to return to the preadmission environment? Yes * Can the patient safely return to the preadmission environment? Yes * Has this patient been hospitalized within the prior 30 days at any hospital? No Last DP export: 10/18/20 1:32 p Patient Name: ERBECCA PORTILLO Page 32980 at 1439 All edits/amendments must be made on the electronic document DICTATION DATE: 10/18/201437 LOAN INSPECTOR: ELSI 10/18/201437 RPT#: [id number] DC DATE: STATUS: ADM IN [facility] [address] [place] [address] END OF REPORT
[2020-10-18 16:14] VITALS: BP 115/69
--- NOTE | 2020-10-18 19:11 | NUR ---
PT SISTER AT BEDSIDE AND PT IS ALERT AND RESPONDING TO SISTER. PT EATING DINNER TRAY WITHOUT DIFFICULTY AND ANSWERING QUESTIONS FROM SISTER. PT CONSUMED (1) CHOCOLATE BOOST AND "IS WORKING ON ANOTHER" PER SISTER. PT EYES ARE OPEN AND ANSWERS ALL QUESTIONS APPROPRIATELY THAT SISTER ASKS. ALL FALL PRECAUTIONS IN PLACE. BED IS IN THE LOWEST POSITION. CALL LIGHT AND BEDSIDE TABLE ARE WITHIN REACH. SIDE RAILS X 2. PT AND PT SISTER DENY FURTHER NEEDS. WILL CONT TO MONITOR.
[2020-10-18 20:00] VITALS: BP 110/54
[2020-10-19] VITALS: BP 117/73
[2020-10-19 04:00] VITALS: BP 102/68
--- NOTE | 2020-10-19 06:33 | NUR ---
ASSESSED AT THE BEGINNING OF THE SHIFT. PT IS ALERT AND CONFUSED, ABLE TO USE CALL LIGHT BUT VERY RESTLESS AND HAS A BED ALARM IN PLACE FOR SAFETY. HE HAS TAKEN HIS MEDS WITH ENCOURAGEMENT AND HAD A BED BATH DURING THE NIGHT. AT THIS TIME HE IS STILL RESTLESS.
[2020-10-19 07:19] LABS: ALBUMIN 2.3 g/dL (3.4-5.0); ALKALINE PHOSPHATASE 130 U/L (30-120); ALT (SGPT) 21 U/L (10-68); BILIRUBIN - TOTAL 0.39 mg/dL (0.2-1.3); CALC OSMOLALITY 274 mosm/kg (275-300); CALCIUM 8.9 mg/dL (8.5-10.1); CARBON DIOXIDE 27.1 mmol/L (21.0-32.0); CHLORIDE - SERUM 106 mmol/L (98-107); CREATININE - SERUM 0.7 mg/dL (0.6-1.3); GLUCOSE 98 mg/dL (74-106); PROTEIN - SERUM 6.7 g/dL (6.4-8.2); SODIUM 138 mmol/L (136-145); UREA NITROGEN 11 mg/dL (7-18); eGFR NON AFRICAN AMERICAN > 90 mL/min (90-120)
[2020-10-19 07:20] LABS: POTASSIUM - SERUM 3.4 mmol/L (3.5-5.1)
[2020-10-19 07:38] LABS: BASOPHILS 0.4 % (0-2); EOSINOPHILS 2.7 % (0-7); HEMATOCRIT 39.3 % (42.0-54.0); HEMOGLOBIN 13.1 g/dL (13.5-17.5); IMMATURE GRANULOCYTES 0.3 % (0-5); LYMPHOCYTE ABS# 1.77 10x3/uL (1.32-3.57); LYMPHOCYTES 16.9 % (15-50); MCH 30.8 pg (26.0-34.0); MCHC 33.3 g/dL (31.0-37.0); MCV 92.3 fL (80.0-100.0); MEAN PLATELET VOLUME 9.9 fL (7.4-10.4); NEUTROPHIL ABS# 7.42 10x3/uL (1.78-5.38); NEUTROPHILS 70.7 % (40-80); RBC 4.26 10x6/uL (4.20-6.10); RDW 13.4 % (11.5-14.5); WBC 10.5 10x3/uL (4.8-10.8)
[2020-10-19 07:39] LABS: PLATELET COUNT 279 10x3/uL (130-400)
--- NOTE | 2020-10-19 08:00 | NUR ---
PATIENT AGITATED PULLING AT CONDOM CATHETER AND ATTEMPTING TO HIT STAFF WHILE CHANGING HIS BED LINENS. GAVE PO ATIVAN DOSE PER OCT. WILL CONTINUE TO MONITOR. BED LOW POSITION, CALL LIGHT IN REACH.
[2020-10-19 09:21] VITALS: BP 103/51
[2020-10-19 13:06] VITALS: BP 104/67
--- NOTE | 2020-10-19 14:05 | NUR ---
Nutrition Follow-up: Not eating well per MD notes. Diet: Regular PO intake: 0% x 2 meals recorded yesterday Last BM: 10/16/20 x 2. Wt: 152.8# (10/13/20) Meds noted: thiamin, probiotics, rocephin, lactulose, D5-1/2NS@75 Labs noted: K 3.0(L), Alb 2.3(L) Recommendations: -Continue current PO diet. Encourage PO intake at meal times. -Will continue to honor food preferences. -Will add Ensure TID -MD may consider adding appetite stimulant as medically feasible -RD will follow-up 10/22/20.
--- NOTE | 2020-10-19 16:42 | MORECARE ---
CASE MANAGEMENT DISCHARGE SUMMARY PATIENT: REBECCA PORTILLO UNIT: [id number] ADM DATE: 10/11/20 AGE: 60 : 64 SEX: M ROOM/BED: D.2233 AUTHOR: ESTER,DOC PHYSICIAN: REFERRING PHYSICIAN: JULIANNA LANE MD DATE OF SERVICE: 10/19/20 Discharge Plan Patient Name: REBECCA PORTILLO Facility: [facility]:[place] : 1960 Planned Disposition: Anticipated Discharge Date: Discharge Date: Expected LOS: Initial Reviewer: [id number] Initial Review Date: 10/11/2020 Generated: 10/19/20 5:42 pm Comments DCP- Discharge Planning Updated by [email or web address]: Rianna Kline on 10/19/20 3:[address] Patient Name: REBECCA PORTILLO Admission Status: ER Accout number: [id number] Admission Date: 10-11-2020 : 1960 Admission Diagnosis:METABOLIC ENCEPHALOPATHY Attending: JULIANNA JACK Current LOS: 8 Anticipated DC Date: Planned Disposition: Primary Insurance: [employer] [facility] Discharge Planning Comments: UPDATED CLINICALS FAXED TO [facility]. I SPOKE WITH REECE SPRAGUE AND PATIENT IS BETTER MENTALLY AND MAY NOT NEED INPATIENT PSYCH. HE IS [facility], I CONNTACTED THEM AND THEY WILL NEED TO DO A REASSESSMENT BEFORE THEY COULD TAKE HIM BACK. I ANTICIPATE HE WILL BE HERE OVER THE WEEKEND. CM TO FOLLOW AND ASSIST NEEDED. Dental Office Assistant: Rianna Kline DCP- Discharge Planning Updated by [id number]: Teresa Alfredo on 10/18/20 1:[address] TELEPHONE CALL TO [facility].NO ANSWER. UNABLE TO LEAVE A MESSAGE. WILL CALL BACK. CXR WITH SUBSEGEMENTAL ATELECTASIS- START UPDRAFTS AND MUCINEX. SARS -COV2 RESULTS PENDING.B/P 89/54 - 109/56. PHYSICAL THERAPY WAS UNABLE TO AMBULATE SECONDARY TO CONFUSION, INABILITY TO FOLLOW COMMANDS OR ANSWER QUESTIONS. AWAIT THERAPY NOTES TODAY. AWAIT [facility] APPROVAL FOR ADMISSION TO [facility]. DCP- Discharge Planning Updated by [email or web address]: Rianna Kline on 10/17/20 12:[address] Patient Name: REBECCA PORTILLO Admission Status: ER Accout number: [id number] Admission Date: 10-11-2020 : 1960 Admission Diagnosis:METABOLIC ENCEPHALOPATHY Attending: JULIANNA JACK Current LOS: 6 Anticipated DC Date: Planned Disposition: Primary Insurance: [employer] [facility] Discharge Planning Comments: I HAVE CALLED [facility] FOR POSSIBLE NEED FOR INPATIENT PSYCH. I SPOKE WITH HIRAM. I HAVE FAXED THEM THE CLINICALS AND WAITING CALL BACK. CM TO FOLLOW AND ASSIST NEEDED. I HAVE ORDERED A PCR COVID FOR PLACEMENT REASONS, IF [place] AGREES TO TAKE HIM THEY MAY ONLY REQUIRE RAPID. I AM WAITING TO HEAR BACK. Dental Office Assistant: Rianna Kline DCPIA - Discharge Planning Initial Assessment Updated by [email or web address]: Rianna Kline on 10/17/20 1:22 pm * PCP [facility] * Facility Name [facility] * Additional services required to return to the preadmission environment? Yes * Can the patient safely return to the preadmission environment? Yes * Has this patient been hospitalized within the prior 30 days at any hospital? No Last DP export: 10/18/20 1:39 p Patient Name: REBECCA PORTILLO Page [phone] at 1642 All edits/amendments must be made on the electronic document DICTATION DATE: 10/19/201641 CHALK MACHINE OPERATOR: ELSI 10/19/201641 RPT#: [id number] DC DATE: STATUS: ADM IN [place] [address] [place] [address] END OF REPORT
[2020-10-19 17:03] VITALS: BP 109/57
--- NOTE | 2020-10-19 18:07 | NUR ---
IN BED. FREE FROM SIGNS OF DISTRESS. MOTHER IN ROOM ASSISTING WITH EATING. BED LOW POSITION, CALL LIGHT IN REACH. WILL CONTINUE TO MONITOR
[2020-10-19 21:02] VITALS: BP 117/70
--- NOTE | 2020-10-19 23:29 | NUR ---
MOTHER AT BS. Patient sleepy and fidgety with eyes closed. Assessment complete. CLIR. side rails up. bed in lowest position. will cont to monitor
[2020-10-20 00:25] VITALS: BP 91/56
--- NOTE | 2020-10-20 02:49 | NUR ---
PATIENT AWAKE IN ROOM FISGETING WITH BLANKETS. NO S/S OF DISTRESS. CLIR. BED IN LOWEST POSITIOM. DOOR AJAR, BED ALARM ON.
[2020-10-20 04:38] VITALS: BP 92/54
[2020-10-20 06:00] LABS: BASOPHILS 0.3 % (0-2); HEMATOCRIT 42.8 % (42.0-54.0); HEMOGLOBIN 14.2 g/dL (13.5-17.5); IMMATURE GRANULOCYTES 0.3 % (0-5); LYMPHOCYTE ABS# 1.78 10x3/uL (1.32-3.57); LYMPHOCYTES 16.5 % (15-50); MCH 30.8 pg (26.0-34.0); MCHC 33.2 g/dL (31.0-37.0); MCV 92.8 fL (80.0-100.0); MEAN PLATELET VOLUME 10.1 fL (7.4-10.4); MONOCYTES 9.8 % (2-11); NEUTROPHIL ABS# 7.65 10x3/uL (1.78-5.38); NEUTROPHILS 71.1 % (40-80); PLATELET COUNT 294 10x3/uL (130-400); RBC 4.61 10x6/uL (4.20-6.10); RDW 13.6 % (11.5-14.5); WBC 10.8 10x3/uL (4.8-10.8)
--- NOTE | 2020-10-20 06:54 | NUR ---
PATIENT AGITATED AND COMBATIVE. PULLED OUT IV ACCESS. ATTEMPTING TO STAND AND BEING AGGRESSIVE TOWARDS STAFF ATTEMPTING TO REORIENT. IM ATIVAN ADMINISTERED PER ORDERS.
[2020-10-20 07:43] LABS: ALBUMIN 2.7 g/dL (3.4-5.0); ALKALINE PHOSPHATASE 158 U/L (30-120); BILIRUBIN - TOTAL 0.34 mg/dL (0.2-1.3); CALC OSMOLALITY 279 mosm/kg (275-300); CALCIUM 8.7 mg/dL (8.5-10.1); CARBON DIOXIDE 26.7 mmol/L (21.0-32.0); CHLORIDE - SERUM 105 mmol/L (98-107); CREATININE - SERUM 0.7 mg/dL (0.6-1.3); GLUCOSE 89 mg/dL (74-106); POTASSIUM - SERUM 4.2 mmol/L (3.5-5.1); PROTEIN - SERUM 6.8 g/dL (6.4-8.2); SODIUM 141 mmol/L (136-145); UREA NITROGEN 13 mg/dL (7-18); eGFR NON AFRICAN AMERICAN > 90 mL/min (90-120)
[2020-10-20 07:46] LABS: ALT (SGPT) 29 U/L (10-68)
--- NOTE | 2020-10-20 07:58 | NUR ---
PATIENT RIPPED IV OUT. REFUSING TO LET US TRY TO GET A NEW IV SITED. SPOKE TO BHAVNA NAPOLES APRN. SHE SAID IT WAS OKAY TO LEAVE THE IV OUT FOR NOW.
[2020-10-20 09:06] VITALS: BP 130/65
[2020-10-20 11:57] VITALS: BP 132/70
--- NOTE | 2020-10-20 12:37 | NUR ---
IN BED RESTING. FREE FROM SIGNS OF DISTRESS. CALL LIGHT IN REACH. BED LOW POSITION, WILL CONTINUE TO MONITOR.
--- NOTE | 2020-10-20 13:16 | NUR ---
PATIENT REFUSING TO DRINK MEDICINE AT THIS TIME. ALSO REFUSING TO EAT LUNCH AT THIS TIME. WILL TRY AGAIN TO GET PATIENT TO EAT.
--- NOTE | 2020-10-20 17:13 | NUR ---
PATIENT CONFUSED X4. REFUSING TO TAKE HIS LACTULOSE MEDICATION. NOTIFIED DAMIR SAAVEDRA APRN.
[2020-10-20 18:04] VITALS: BP 130/65
[2020-10-20 20:00] VITALS: BP 114/76
[2020-10-21] VITALS: BP 105/66
--- NOTE | 2020-10-21 01:14 | NUR ---
PATIENT AWAKE AND ALERT. ATTEMPTING TO GET OUT OF BED. BED ALARM IN PLACE AND FUNCTIONING. WILL CONTINUE TO MONITOR FOR S/S OF AGITATION.
[2020-10-21 04:00] VITALS: BP 96/64
[2020-10-21 05:33] LABS: BASOPHILS 0.3 % (0-2); EOSINOPHILS 2.2 % (0-7); HEMATOCRIT 40.2 % (42.0-54.0); HEMOGLOBIN 13.5 g/dL (13.5-17.5); IMMATURE GRANULOCYTES 0.2 % (0-5); LYMPHOCYTE ABS# 1.81 10x3/uL (1.32-3.57); LYMPHOCYTES 18.9 % (15-50); MCH 30.6 pg (26.0-34.0); MCHC 33.6 g/dL (31.0-37.0); MCV 91.2 fL (80.0-100.0); MEAN PLATELET VOLUME 10.3 fL (7.4-10.4); MONOCYTES 11.6 % (2-11); NEUTROPHILS 66.8 % (40-80); PLATELET COUNT 319 10x3/uL (130-400); RBC 4.41 10x6/uL (4.20-6.10); RDW 13.6 % (11.5-14.5); WBC 9.6 10x3/uL (4.8-10.8)
[2020-10-21 05:52] LABS: ALBUMIN 2.4 g/dL (3.4-5.0); ALKALINE PHOSPHATASE 138 U/L (30-120); ALT (SGPT) 27 U/L (10-68); BILIRUBIN - TOTAL 0.45 mg/dL (0.2-1.3); CALC OSMOLALITY 264 mosm/kg (275-300); CARBON DIOXIDE 23.1 mmol/L (21.0-32.0); CHLORIDE - SERUM 104 mmol/L (98-107); GLUCOSE 83 mg/dL (74-106); POTASSIUM - SERUM 4.4 mmol/L (3.5-5.1); PROTEIN - SERUM 7.1 g/dL (6.4-8.2); SODIUM 133 mmol/L (136-145); UREA NITROGEN 12 mg/dL (7-18)
[2020-10-21 05:56] LABS: CREATININE - SERUM 0.5 mg/dL (0.6-1.3); MAGNESIUM - SERUM 2.1 mg/dL (1.8-2.4); eGFR NON AFRICAN AMERICAN > 90 mL/min (90-120)
--- NOTE | 2020-10-21 08:07 | NUR ---
RESTING IN BED, NO DISTRESS NOTED, CONFUSED, INCONT, TRYING TO GET OUT OF BED, CONT TO MONITOR, BED ALARMS ON
[2020-10-21 09:04] VITALS: BP 115/79
[2020-10-21 12:43] VITALS: BP 112/85
[2020-10-21 16:35] VITALS: BP 113/86
[2020-10-21 20:00] VITALS: BP 106/78
--- NOTE | 2020-10-21 23:25 | NUR ---
PATIENT TRYING TO GET OUT OF BED. BECOMING VERBALLY AGGRESSIVE WITH STAFF ATTEMPTING TO REDIRECT. PO ATIVAN ADMINISTERED PER ORDERS. PATIENT RESTING IN BED AWAKE AT THIS TIME. REQUIRING MAX ASSIST FOR ADLS.
[2020-10-22] VITALS: BP 96/69
[2020-10-22 04:00] VITALS: BP 116/80
--- NOTE | 2020-10-22 07:23 | NUR ---
REC'D IN BED WITH EYES CLOSED RESTING WELL AT THIS TIME. RESP EVEN AND UNLABORED WITH NO DISTRESS NOTE. CAN EXPRESS NEEDS AND WANTS. NO C/O NOTED OR VOICED. ASSESSMENT COMPLETED. C/L IN REACH AT BEDSIDE.
[2020-10-22 07:27] LABS: BASOPHILS 0.1 % (0-2); EOSINOPHILS 0.3 % (0-7); HEMATOCRIT 42.3 % (42.0-54.0); HEMOGLOBIN 14.1 g/dL (13.5-17.5); IMMATURE GRANULOCYTES 0.3 % (0-5); LYMPHOCYTE ABS# 1.21 10x3/uL (1.32-3.57); LYMPHOCYTES 6.2 % (15-50); MCH 30.6 pg (26.0-34.0); MCHC 33.3 g/dL (31.0-37.0); MCV 91.8 fL (80.0-100.0); MEAN PLATELET VOLUME 9.1 fL (7.4-10.4); MONOCYTES 9.1 % (2-11); NEUTROPHIL ABS# 16.46 10x3/uL (1.78-5.38); PLATELET COUNT 316 10x3/uL (130-400); RBC 4.61 10x6/uL (4.20-6.10); RDW 13.8 % (11.5-14.5)
[2020-10-22 07:28] LABS: WBC 19.6 10x3/uL (4.8-10.8)
[2020-10-22 08:52] VITALS: BP 131/72
[2020-10-22 11:29] LABS: ALBUMIN 2.7 g/dL (3.4-5.0); ALKALINE PHOSPHATASE 160 U/L (30-120); ALT (SGPT) 27 U/L (10-68); CALC OSMOLALITY 275 mosm/kg (275-300); CALCIUM 9.7 mg/dL (8.5-10.1); CARBON DIOXIDE 26.3 mmol/L (21.0-32.0); CHLORIDE - SERUM 104 mmol/L (98-107); GLUCOSE 102 mg/dL (74-106); POTASSIUM - SERUM 3.9 mmol/L (3.5-5.1); PROTEIN - SERUM 7.6 g/dL (6.4-8.2); SODIUM 138 mmol/L (136-145); UREA NITROGEN 13 mg/dL (7-18)
[2020-10-22 11:35] LABS: CREATININE - SERUM 0.8 mg/dL (0.6-1.3); eGFR NON AFRICAN AMERICAN > 90 mL/min (90-120)
[2020-10-22 12:19] VITALS: BP 125/69
--- NOTE | 2020-10-22 12:57 | NUR ---
RESTING IN BED WITH EYES CLOSED, BRATHING EVEN AND NONLABORED WITH NO S/S OF DISTRESS AT THIS TIME, WILL CONT TO MONITOR.
--- NOTE | 2020-10-22 15:05 | NUR ---
Nutrition Follow-up Plans for [facility] vs back to [facility] per MD notes. Diet: Regular + Ensure TID PO intake: ~13% average x last 8 meals Last BM: 10/16/20 x 2. Wt: 152.8# (10/13/20) Meds note: thiamin, probiotics, abx, lactulose Labs noted: alk phos 160(H), ammonia 46(H) Recommend -Continue Regular diet + oral nutrition supplement. -Will continue to honor food preferences. -Recommend MD consider adding appetite stimulant as medically feasible. -RD will follow-up 10/25/20.
--- NOTE | 2020-10-22 15:12 | NUR ---
IN AND OUT CATH COMPLETED, URINE TAKEN TO LAB. WILL CONT TO MONITOR.
[2020-10-22 16:01] LABS: BILIRUBIN NEGATIVE (NEGATIVE); KETONE NEGATIVE (NEGATIVE); NITRITE NEGATIVE (NEGATIVE); UROBILINOGEN NORMAL mg/dL (< 2)
[2020-10-22 16:03] VITALS: BP 121/74
[2020-10-22 21:50] VITALS: BP 100/68
--- NOTE | 2020-10-22 23:19 | NUR ---
PATIENT DROWSY, AWAKENS EASILY BUT FALLS ASLEEP AGAIN SHORTLY. ABLE TO TAKE HIS HS MEDS. VITALS WNL. WILL CONTINUE TO MONITOR.
[2020-10-23 01:23] VITALS: BP 141/60
[2020-10-23 04:00] VITALS: BP 96/58
[2020-10-23 07:31] LABS: BASOPHILS 0.1 % (0-2); EOSINOPHILS 0.3 % (0-7); HEMATOCRIT 39.9 % (42.0-54.0); HEMOGLOBIN 13.3 g/dL (13.5-17.5); IMMATURE GRANULOCYTES 0.4 % (0-5); LYMPHOCYTE ABS# 2.26 10x3/uL (1.32-3.57); LYMPHOCYTES 12.2 % (15-50); MCH 30.6 pg (26.0-34.0); MCHC 33.3 g/dL (31.0-37.0); MCV 91.7 fL (80.0-100.0); MEAN PLATELET VOLUME 8.9 fL (7.4-10.4); NEUTROPHIL ABS# 13.86 10x3/uL (1.78-5.38); PLATELET COUNT 310 10x3/uL (130-400); RBC 4.35 10x6/uL (4.20-6.10); RDW 13.9 % (11.5-14.5); WBC 18.5 10x3/uL (4.8-10.8)
[2020-10-23 07:47] LABS: ALBUMIN 2.6 g/dL (3.4-5.0); ALKALINE PHOSPHATASE 163 U/L (30-120); ALT (SGPT) 26 U/L (10-68); BILIRUBIN - TOTAL 0.53 mg/dL (0.2-1.3); CALC OSMOLALITY 277 mosm/kg (275-300); CALCIUM 8.7 mg/dL (8.5-10.1); CARBON DIOXIDE 25.8 mmol/L (21.0-32.0); CHLORIDE - SERUM 102 mmol/L (98-107); CREATININE - SERUM 0.8 mg/dL (0.6-1.3); GLUCOSE 113 mg/dL (74-106); POTASSIUM - SERUM 3.7 mmol/L (3.5-5.1); PROTEIN - SERUM 6.5 g/dL (6.4-8.2); SODIUM 138 mmol/L (136-145); UREA NITROGEN 16 mg/dL (7-18); eGFR NON AFRICAN AMERICAN > 90 mL/min (90-120)
[2020-10-23 10:27] VITALS: BP 166/77
[2020-10-23 13:12] LABS: HEPATITIS C ANTIBODY <0.1 (0.0-0.9)
[2020-10-23 13:58] VITALS: BP 114/62
--- NOTE | 2020-10-23 16:43 | NUR ---
OT NOTE: PT REQUIRED EXTRA TIME AND CUES FOR ATTENTION TO TASK. PT COMPLETED BED MOB WITH MOD A. PT COMPLETED SIT TO STAND WITH MOD A. PT COMPLETED UB HYGIENE TASKS WITH MOD A. [phone] THANK YOU,RACHELE KHAN
[2020-10-23 18:31] VITALS: BP 105/69
[2020-10-24 07:26] LABS: BASOPHILS 0.3 % (0-2); EOSINOPHILS 1.8 % (0-7); HEMATOCRIT 37.1 % (42.0-54.0); HEMOGLOBIN 12.2 g/dL (13.5-17.5); IMMATURE GRANULOCYTES 0.4 % (0-5); LYMPHOCYTES 20.1 % (15-50); MCH 30.3 pg (26.0-34.0); MCHC 32.9 g/dL (31.0-37.0); MCV 92.3 fL (80.0-100.0); MEAN PLATELET VOLUME 9.4 fL (7.4-10.4); MONOCYTES 11.6 % (2-11); NEUTROPHILS 65.8 % (40-80); PLATELET COUNT 294 10x3/uL (130-400); RBC 4.02 10x6/uL (4.20-6.10); RDW 13.9 % (11.5-14.5)
[2020-10-24 07:38] LABS: WBC 10.9 10x3/uL (4.8-10.8)
[2020-10-24 07:41] VITALS: BP 120/97
[2020-10-24 07:44] LABS: ALBUMIN 2.4 g/dL (3.4-5.0); ALKALINE PHOSPHATASE 135 U/L (30-120); ALT (SGPT) 23 U/L (10-68); BILIRUBIN - TOTAL 0.56 mg/dL (0.2-1.3); CALC OSMOLALITY 269 mosm/kg (275-300); CALCIUM 8.6 mg/dL (8.5-10.1); CARBON DIOXIDE 27.1 mmol/L (21.0-32.0); CHLORIDE - SERUM 101 mmol/L (98-107); CREATININE - SERUM 0.6 mg/dL (0.6-1.3); GLUCOSE 88 mg/dL (74-106); POTASSIUM - SERUM 3.9 mmol/L (3.5-5.1); PROTEIN - SERUM 5.9 g/dL (6.4-8.2); SODIUM 135 mmol/L (136-145); UREA NITROGEN 14 mg/dL (7-18); eGFR NON AFRICAN AMERICAN > 90 mL/min (90-120)
--- NOTE | 2020-10-24 09:08 | NUR ---
0700 - RECEIVED PT FROM OFFGOING NURSE ASLEEP IN BED. BED LOW AND LOCKED, CALL LIGHT IN REACH. WILL CONTINUE TO MONITOR.
[2020-10-24 09:13] LABS: HEPATITIS C ANTIBODY <0.1 S/CO RAT (0.0-0.9)
[2020-10-24 11:42] VITALS: BP 106/55
--- NOTE | 2020-10-24 14:24 | MORECARE ---
CASE MANAGEMENT DISCHARGE SUMMARY PATIENT: REBECCA PORTILLO UNIT: [id number] ADM DATE: 10/11/20 AGE: 60 : 64 SEX: M ROOM/BED: D.2233 AUTHOR: ESTERDOC PHYSICIAN: REFERRING PHYSICIAN: JULIANNA LANE MD DATE OF SERVICE: 10/24/20 Discharge Plan Patient Name: REBECCA PORTILLO Facility: [facility]:[place] : 1960 Planned Disposition: Anticipated Discharge Date: Discharge Date: Expected LOS: Initial Reviewer: [id number] Initial Review Date: 10/11/2020 Generated: 10/24/20 3:23 pm Comments DCP- Discharge Planning Updated by [id number]: Rianna Kline on 10/24/20 1:[address] Patient Name: REBECCA PORTILLO Admission Status: ER Accout number: [id number] Admission Date: 10-11-2020 : 1960 Admission Diagnosis:METABOLIC ENCEPHALOPATHY Attending: JULIANNA JACK Current LOS: 13 Anticipated DC Date: Planned Disposition: Primary Insurance: [employer] PPO Discharge Planning Comments: SPOKE WITH JOHNNY AT [facility]. I AM FAXING HER UPDATES. SHE WILL HAVE TO reassess to see if they will accept him back. She said he can be no more than a one person assist. I have reordered physical therapy, I don't see pt in there since 10/18/20. CM will fax updates to [phone]. Their telephone number is [phone]. CM to follow and assist as needed. Educational Interpreter: Rianna Kline DCP- Discharge Planning Updated by [id number]: Rianna Kline on 10/19/20 3:[address] Patient Name: REBECCA PORTILLO Admission Status: ER Accout number: [id number] Admission Date: 10-11-2020 : 1960 Admission Diagnosis:METABOLIC ENCEPHALOPATHY Attending: JULIANNA JACK Current LOS: 8 Anticipated DC Date: Planned Disposition: Primary Insurance: [employer] PPO Discharge Planning Comments: UPDATED CLINICALS FAXED TO [facility]. I SPOKE WITH REECE SPRAGUE AND PATIENT IS BETTER MENTALLY AND MAY NOT NEED INPATIENT PSYCH. HE IS FROM [facility], I CONNTACTED THEM AND THEY WILL NEED TO DO A REASSESSMENT BEFORE THEY COULD TAKE HIM BACK. I ANTICIPATE HE WILL BE HERE OVER THE WEEKEND. CM TO FOLLOW AND ASSIST NEEDED. Educational Interpreter: Rianna Kline DCP- Discharge Planning Updated by [id number]: Teresa Alfredo on 10/18/20 1:[address] TELEPHONE CALL TO [facility].NO ANSWER. UNABLE TO LEAVE A MESSAGE. WILL CALL BACK. CXR WITH SUBSEGEMENTAL ATELECTASIS- START UPDRAFTS AND MUCINEX. SARS -COV2 RESULTS PENDING.B/P 89/54 - 109/56. PHYSICAL THERAPY WAS UNABLE TO AMBULATE SECONDARY TO CONFUSION, INABILITY TO FOLLOW COMMANDS OR ANSWER QUESTIONS. AWAIT THERAPY NOTES TODAY. AWAIT [facility] APPROVAL FOR ADMISSION TO [facility]. DCP- Discharge Planning Updated by [email or web address]: Rianna Kline on 10/17/20 12:[address] Patient Name: REBECCA PORTILLO Admission Status: ER Accout number: [id number] Admission Date: 10-11-2020 : 1960 Admission Diagnosis:METABOLIC ENCEPHALOPATHY Attending: JULIANNA JACK Current LOS: 6 Anticipated DC Date: Planned Disposition: Primary Insurance: [employer] [facility] Discharge Planning Comments: I HAVE CALLED [facility] FOR POSSIBLE NEED FOR INPATIENT PSYCH. I SPOKE WITH [facility]. I HAVE FAXED THEM THE CLINICALS AND WAITING CALL BACK. CM TO FOLLOW AND ASSIST NEEDED. I HAVE ORDERED A PCR COVID FOR PLACEMENT REASONS, IF [facility] AGREES TO TAKE HIM THEY MAY ONLY REQUIRE RAPID. I AM WAITING TO HEAR BACK. Educational Interpreter: Rianna Kline DCPIA - Discharge Planning Initial Assessment Updated by [id number]: Rianna Kline on 10/17/20 1:22 pm * PCP [facility] * Facility Name [facility] * Additional services required to return to the preadmission environment? Yes * Can the patient safely return to the preadmission environment? Yes * Has this patient been hospitalized within the prior 30 days at any hospital? No External Providers External Provider: OTHER-OTHER Next Contact Date: Service Request Date: Service Type: Resolution: Reviewer: Comments: Last DP export: 10/19/20 3:42 p Patient Name: REBECCA PORTILLO Page 43660 at 1424 All edits/amendments must be made on the electronic document DICTATION DATE: 10/24/201422 ASSEMBLER BODY: ELSI 10/24/201422 RPT#: [id number] DC DATE: STATUS: ADM IN [facility] [address] [place] [address] END OF REPORT
[2020-10-24 15:33] VITALS: BP 91/57
--- NOTE | 2020-10-24 15:56 | NUR ---
OT NOTE: PT IS CONFUSED AND REQUIRED EXTENSIVE CUES FOR INCREASED SAFETY. PT COMPLETED BED MOB WITH MAX A. PT REQUIRED MAX A FOR STATIC STANDING. PT REQUIRED MAX A FOR LB HYGIENE. PT EXHIBITED THE NEED FOR CUES TO SEQUENCING TASKS. [id number] THANK YOU,RACHELE KHAN
--- NOTE | 2020-10-24 16:28 | NUR ---
OT NOTE: PT WITH DOOR OPEN FOR SAFETY. OBSERVED PT PULLING ON SIDE RAILS. WENT INTO ROOM TO ASSIST. PT REMAINS EXTREMELY CONFUSED..UNABLE TO FOLLOW MOST SIMPLE COMMANDS..DECREASED ATTN TO TASK..ASSISTED PT WITH SUPINE TO SIT WITH MOD ASSIST; ATTEMPTED TO SAMPSON CLEAN GOWN BUT PT PULLING OFF AT SAME TIME.. DIFFICULTY CHANGING PTS BRIEFS, HE IS MAX ASSIST TO STAND AND MAINTAIN BALANCE, AND ALSO MAX ASSIST TO DOFF AND SAMPSON BRIEF.. PT FIGHTING AGAINST YOU FOR MOST ADLS, DUE TO HIS CONFUSION AND POOR PROCESSING SKILLS. STANDING BALANCE IS POOR; ABLE TO TAKE A FEW SIDE STEPS WITH BACK STAYER X 2.. BECOMES MORE CONFUSED WITH USE OF WALKER. WES NÚÑEZ, OTR/L [id number]
[2020-10-24 20:00] VITALS: BP 90/52
--- NOTE | 2020-10-24 22:52 | NUR ---
Pt assisted to reposition in bed. leggs hanging over side rail X2. Warm blankets applied and repositioned X3. Pt did slam LLE cervantes to bed rail and caused a skin tear. same cleansed and dressed.
[2020-10-25] VITALS: BP 114/71
--- NOTE | 2020-10-25 00:25 | NUR ---
Pt became increasingly agitated. Assisted with changing, repositioning, food, fluids offered. Warm blankets offered. Repositioning done and pt continued to try climbing out of end of bed. Pt was a one to one for 1.5hours. Provider o/c notified of same and new order recieved for [place] bed. Pt has been transfered to [facility]. Resting in bed at this time.
[2020-10-25 04:00] VITALS: BP 124/37
--- NOTE | 2020-10-25 04:42 | NUR ---
Pt has not slept this night. Continues to move around in casi bed and fidgeting with gown, brief and self. Has watched some TV and at one point requested his come sleep with him. Remains confused as to where he is, time and why he is here. Pt has even been confused about his telling this nurse it is september 03, 1940. Remains safely in [place] bed and frequent chacks by staff.
[2020-10-25 06:08] LABS: BASOPHILS 0.3 % (0-2); EOSINOPHILS 1.6 % (0-7); HEMATOCRIT 40.1 % (42.0-54.0); HEMOGLOBIN 13.4 g/dL (13.5-17.5); IMMATURE GRANULOCYTES 0.5 % (0-5); LYMPHOCYTE ABS# 2.05 10x3/uL (1.32-3.57); LYMPHOCYTES 23.7 % (15-50); MCH 30.4 pg (26.0-34.0); MCHC 33.4 g/dL (31.0-37.0); MCV 90.9 fL (80.0-100.0); MEAN PLATELET VOLUME 9.5 fL (7.4-10.4); MONOCYTES 9.8 % (2-11); NEUTROPHIL ABS# 5.53 10x3/uL (1.78-5.38); NEUTROPHILS 64.1 % (40-80); PLATELET COUNT 330 10x3/uL (130-400); RBC 4.41 10x6/uL (4.20-6.10); RDW 13.5 % (11.5-14.5); WBC 8.6 10x3/uL (4.8-10.8)
[2020-10-25 07:12] LABS: ALBUMIN 2.6 g/dL (3.4-5.0); ALKALINE PHOSPHATASE 148 U/L (30-120); BILIRUBIN - TOTAL 0.46 mg/dL (0.2-1.3); CALCIUM 7.9 mg/dL (8.5-10.1); CARBON DIOXIDE 25.5 mmol/L (21.0-32.0); CHLORIDE - SERUM 100 mmol/L (98-107); CREATININE - SERUM 0.5 mg/dL (0.6-1.3); GLUCOSE 91 mg/dL (74-106); POTASSIUM - SERUM 3.6 mmol/L (3.5-5.1); PROTEIN - SERUM 7.1 g/dL (6.4-8.2); SODIUM 134 mmol/L (136-145); eGFR NON AFRICAN AMERICAN > 90 mL/min (90-120)
[2020-10-25 07:13] LABS: ALT (SGPT) 31 U/L (10-68); CALC OSMOLALITY 266 mosm/kg (275-300); UREA NITROGEN 10 mg/dL (7-18)
--- NOTE | 2020-10-25 07:43 | NUR ---
ALERT BUT NOT COHERANT. DIONTE BED ZIPPED. CALL TEJADA IN REACH. WILL CONTINUE TO MONITOR.
[2020-10-25 09:00] VITALS: BP 98/50
--- NOTE | 2020-10-25 12:00 | NUR ---
DIONTE BED UNZIPPED AND AT BEDSIDE.
[2020-10-25 13:17] VITALS: BP 128/68
--- NOTE | 2020-10-25 14:15 | NUR ---
Nutrition follow-up: Diet: regular with nectar thick liquids; no straws PO intake has been poor for fair at meals per nurse Labs reviewed +BM Wt: 153# Pt remains in a casi bed for safety Sleeping at time of RDN visit this morning PO intake continues to be poor RDN will order Ensure with meals Follow-up: 10/29/20
--- NOTE | 2020-10-25 15:00 | NUR ---
LEFT AND DIONTE BED ZIPPED. PATIENT DENIES NEEDS. WILL CONTINUE TO MONITOR.
[2020-10-25 16:09] VITALS: BP 117/65
[2020-10-25 20:00] VITALS: BP 90/54
--- NOTE | 2020-10-25 20:00 | NUR ---
ALERT CONFUSED DIONTE BED IN USE, SPEECH INCOHERANT, THICKENED WATER GIVEN TOLERATED WELL, SEE SHIFT ASSESSMENT
[2020-10-26] VITALS: BP 107/68
[2020-10-26 04:00] VITALS: BP 100/65
[2020-10-26 05:37] LABS: BASOPHILS 0.3 % (0-2); EOSINOPHILS 1.2 % (0-7); HEMATOCRIT 38.4 % (42.0-54.0); IMMATURE GRANULOCYTES 0.5 % (0-5); LYMPHOCYTES 24.2 % (15-50); MCH 30.4 pg (26.0-34.0); MCHC 33.9 g/dL (31.0-37.0); MCV 89.7 fL (80.0-100.0); MEAN PLATELET VOLUME 9.1 fL (7.4-10.4); MONOCYTES 10.7 % (2-11); NEUTROPHIL ABS# 5.47 10x3/uL (1.78-5.38); NEUTROPHILS 63.1 % (40-80); PLATELET COUNT 328 10x3/uL (130-400); RBC 4.28 10x6/uL (4.20-6.10); RDW 13.5 % (11.5-14.5); WBC 8.7 10x3/uL (4.8-10.8)
[2020-10-26 06:07] LABS: ALBUMIN 2.5 g/dL (3.4-5.0); ALKALINE PHOSPHATASE 144 U/L (30-120); ALT (SGPT) 31 U/L (10-68); BILIRUBIN - TOTAL 0.37 mg/dL (0.2-1.3); CALC OSMOLALITY 271 mosm/kg (275-300); CARBON DIOXIDE 26.9 mmol/L (21.0-32.0); CHLORIDE - SERUM 101 mmol/L (98-107); CREATININE - SERUM 0.6 mg/dL (0.6-1.3); GLUCOSE 93 mg/dL (74-106); POTASSIUM - SERUM 3.5 mmol/L (3.5-5.1); PROTEIN - SERUM 6.8 g/dL (6.4-8.2); SODIUM 136 mmol/L (136-145); eGFR NON AFRICAN AMERICAN > 90 mL/min (90-120)
[2020-10-26 06:08] LABS: UREA NITROGEN 13 mg/dL (7-18)
--- NOTE | 2020-10-26 07:40 | NUR ---
ALERT AND CONFUSED. CANNOT RESPOND TO ANY QUESTIONS ASKED COHERENTLY. UNABLE TO REDIRECT. ASSESSMENT COMPLETE. DIONTE BED ZIPPED AND HOB RAISED AT 45 DEGREES. CALL TEJADA IN REACH. WILL CONTINUE TO MONITOR.
[2020-10-26 08:15] VITALS: BP 94/57
[2020-10-26 13:27] VITALS: BP 113/64
--- NOTE | 2020-10-26 14:55 | MORECARE ---
CASE MANAGEMENT DISCHARGE SUMMARY PATIENT: REBECCA PORTILLO UNIT: [id number] ADM DATE: 10/11/20 AGE: 60 : 64 SEX: M ROOM/BED: D.2233 AUTHOR: ESTERDOC PHYSICIAN: REFERRING PHYSICIAN: JULIANNA LANE MD DATE OF SERVICE: 10/26/20 Discharge Plan Patient Name: REBECCA PORTILLO Facility: [facility]:[place] : 1960 Planned Disposition: Anticipated Discharge Date: Discharge Date: Expected LOS: Initial Reviewer: [email or web address] Initial Review Date: 10/11/2020 Generated: 10/26/20 3:54 pm Comments DCP- Discharge Planning Updated by [id number]: Rianna Kline on 10/26/20 1:[address] Patient Name: REBECCA PORTILLO Admission Status: ER Accout number: [id number] Admission Date: 10-11-2020 : 1960 Admission Diagnosis:METABOLIC ENCEPHALOPATHY Attending: JULIANNA JACK Current LOS: 15 Anticipated DC Date: Planned Disposition: Primary Insurance: [employer] [place] PPO Discharge Planning Comments: Patient is currently in a casi bed. I spoke with his Lydia today. She would like a provider to give her a call back at [phone]. She has requested a neurologist to see her . I talked with her about her husbands chances being very low of returning back to [facility]. They require their residents to be less than a one person assist and able to feed self. He does not meet criteria for [facility] at this time. I anticipate he will need terminal operations supervisor care placement. I will speak with the more about this after she talks with a provider here. CM to follow and assist as needed. Transfer And Line Up Worker: Rianna Kline DCP- Discharge Planning Updated by [email or web address]: Rianna Kline on 10/24/20 1:[address] Patient Name: REBECCA PORTILLO Admission Status: ER Accout number: [id number] Admission Date: 10-11-2020 : 1960 Admission Diagnosis:METABOLIC ENCEPHALOPATHY Attending: JULIANNA JACK Current LOS: 13 Anticipated DC Date: Planned Disposition: Primary Insurance: [facility] PPO Discharge Planning Comments: SPOKE WITH JOHNNY AT [facility]. I AM FAXING HER UPDATES. SHE WILL HAVE TO reassess to see if they will accept him back. She said he can be no more than a one person assist. I have reordered physical therapy, I don't see pt in there since 10/18/20. CM will fax updates to [phone]. Their telephone number is [phone]. CM to follow and assist as needed. Transfer And Line Up Worker: Rianna Kline DCP- Discharge Planning Updated by [email or web address]: Rianna Raisa on 10/19/20 3:[address] Patient Name: REBCECA PORTILLO Admission Status: ER Accout number: [id number] Admission Date: 10-11-2020 : 1960 Admission Diagnosis:METABOLIC ENCEPHALOPATHY Attending: JULIANNA JACK Current LOS: 8 Anticipated DC Date: Planned Disposition: Primary Insurance: [facility] PPO Discharge Planning Comments: UPDATED CLINICALS [facility]. I SPOKE WITH REECE SPRAGUE AND PATIENT IS BETTER MENTALLY AND MAY NOT NEED INPATIENT PSYCH. HE IS FROM [facility], I CONNTACTED THEM AND THEY WILL NEED TO DO A REASSESSMENT BEFORE THEY COULD TAKE HIM BACK. I ANTICIPATE HE WILL BE HERE OVER THE WEEKEND. CM TO FOLLOW AND ASSIST NEEDED. Transfer And Line Up Worker: Rianna Kline DCP- Discharge Planning Updated by [email or web address]: Teresa Alfredo on 10/18/20 1:[address] TELEPHONE CALL TO [facility].NO ANSWER. UNABLE TO LEAVE A MESSAGE. WILL CALL BACK. CXR WITH SUBSEGEMENTAL ATELECTASIS- START UPDRAFTS AND MUCINEX. SARS -COV2 RESULTS PENDING.B/P 89/54 - 109/56. PHYSICAL THERAPY WAS UNABLE TO AMBULATE SECONDARY TO CONFUSION, INABILITY TO FOLLOW COMMANDS OR ANSWER QUESTIONS. AWAIT THERAPY NOTES TODAY. AWAIT [facility] APPROVAL FOR ADMISSION TO [facility]. DCP- Discharge Planning Updated by [id number]: Riannamarita Kline on 10/17/20 12:[address] Patient Name: REBECCA PORTILLO Admission Status: ER Accout number: [id number] Admission Date: 10-11-2020 : 1960 Admission Diagnosis:METABOLIC ENCEPHALOPATHY Attending: JULIANNA JACK Current LOS: 6 Anticipated DC Date: Planned Disposition: Primary Insurance[facility] [employer] [facility] Discharge Planning Comments: I HAVE CALLED [facility] FOR POSSIBLE NEED FOR INPATIENT PSYCH. I SPOKE WITH [facility]. I HAVE FAXED THEM THE CLINICALS AND WAITING CALL BACK. CM TO FOLLOW AND ASSIST NEEDED. I HAVE ORDERED A PCR COVID FOR PLACEMENT REASONS, IF [facility] AGREES TO TAKE HIM THEY MAY ONLY REQUIRE RAPID. I AM WAITING TO HEAR BACK. Transfer And Line Up Worker: Rianna Kline DCPIA - Discharge Planning Initial Assessment Updated by [email or web address]: Rianna Kline on 10/17/20 1:22 pm * PCP [facility] * Facility Name [facility] * Additional services required to return to the preadmission environment? Yes * Can the patient safely return to the preadmission environment? Yes * Has this patient been hospitalized within the prior 30 days at any hospital? No Last DP export: 10/24/20 1:24 pm Patient Name: ERBECCA PORTILLO Page 10888 at 1455 All edits/amendments must be made on the electronic document DICTATION DATE: 10/26/201453 BARREL ASSEMBLER: ELSI 10/26/201453 RPT#: [id number] DC DATE: STATUS: ADM IN [facility] [address] [place] [address] END OF REPORT
--- NOTE | 2020-10-26 15:42 | NUR ---
OT NOTE: PT EDUCATED ON THE IMPORTANCE OF THERAPY. [phone] THANK YOU,RACHELE KHAN
[2020-10-26 17:35] VITALS: BP 98/59
[2020-10-26 20:00] VITALS: BP 132/54
--- NOTE | 2020-10-26 20:03 | NUR ---
Patient arrived from ER via stretcher. Walked to bed without difficulty. Alert and oriented. No complaints of pain or discomfort voiced. Oriented to room and unit. Call light in easy reach.
--- NOTE | 2020-10-27 02:44 | NUR ---
HAS RESTED FAIR THIS SHIFT. APPEARS IN NO PAIN OR DISCOMFORT. DIONTE BED IN USE. TOOK MEDS WITHOUT DIFFICULTY. CHECKED FREQUENTLY FOR NEEDS. SAFETY ROUNDS MADE.
[2020-10-27 04:40] LABS: BASOPHILS 0.4 % (0-2); EOSINOPHILS 1.3 % (0-7); HEMATOCRIT 39.7 % (42.0-54.0); HEMOGLOBIN 13.2 g/dL (13.5-17.5); IMMATURE GRANULOCYTES 0.4 % (0-5); LYMPHOCYTE ABS# 2.39 10x3/uL (1.32-3.57); LYMPHOCYTES 30.3 % (15-50); MCH 30.5 pg (26.0-34.0); MCHC 33.2 g/dL (31.0-37.0); MEAN PLATELET VOLUME 9.3 fL (7.4-10.4); MONOCYTES 8.1 % (2-11); NEUTROPHIL ABS# 4.69 10x3/uL (1.78-5.38); NEUTROPHILS 59.5 % (40-80); PLATELET COUNT 331 10x3/uL (130-400); RBC 4.33 10x6/uL (4.20-6.10); RDW 13.7 % (11.5-14.5); WBC 7.9 10x3/uL (4.8-10.8)
[2020-10-27 04:43] LABS: MCV 91.7 fL (80.0-100.0)
[2020-10-27 04:52] LABS: ALBUMIN 2.5 g/dL (3.4-5.0); ALKALINE PHOSPHATASE 140 U/L (30-120); ALT (SGPT) 29 U/L (10-68); BILIRUBIN - TOTAL 0.34 mg/dL (0.2-1.3); CALC OSMOLALITY 278 mosm/kg (275-300); CARBON DIOXIDE 30.3 mmol/L (21.0-32.0); CHLORIDE - SERUM 103 mmol/L (98-107); CREATININE - SERUM 0.7 mg/dL (0.6-1.3); GLUCOSE 100 mg/dL (74-106); POTASSIUM - SERUM 3.5 mmol/L (3.5-5.1); PROTEIN - SERUM 6.9 g/dL (6.4-8.2); SODIUM 139 mmol/L (136-145); UREA NITROGEN 14 mg/dL (7-18); eGFR NON AFRICAN AMERICAN > 90 mL/min (90-120)
[2020-10-27 04:59] VITALS: BP 142/62
[2020-10-27 08:54] VITALS: BP 100/64
--- NOTE | 2020-10-27 13:34 | NUR ---
I have reviewed this patient and I concur with the Shift Assessment completed by the Licensed Practical Nurse today this shift.
--- NOTE | 2020-10-27 14:28 | NUR ---
PATIENT IS VERY CONFUSED MOD TO SOB SAT FOR A FEW MINS AND WANTED TO LAY BACK DOWN
[2020-10-27 14:48] VITALS: BP 102/62
[2020-10-27 17:51] VITALS: BP 97/53
[2020-10-27 20:00] VITALS: BP 131/71
--- NOTE | 2020-10-27 20:30 | NUR ---
AWAKE,ALERT WITH CONFUSION NOTED. DOES NOT ANSWERS AND QUESTIONS. SPEECH IS GARBLED.REMAINS IN ENCLOSURE BED FOR SAFTEY. RESP UNALBORED. NO DISTRESS NOTED. CL IN REACH
[2020-10-28 04:00] VITALS: BP 117/63
--- NOTE | 2020-10-28 04:39 | NUR ---
I have reviewed this patient and I concur with the Shift Assessment completed by the Licensed Practical Nurse today this shift.
[2020-10-28 05:14] LABS: BASOPHILS 0.4 % (0-2); EOSINOPHILS 1.5 % (0-7); HEMATOCRIT 37.6 % (42.0-54.0); HEMOGLOBIN 12.4 g/dL (13.5-17.5); IMMATURE GRANULOCYTES 0.6 % (0-5); LYMPHOCYTE ABS# 2.22 10x3/uL (1.32-3.57); LYMPHOCYTES 28.4 % (15-50); MCH 30.5 pg (26.0-34.0); MCV 92.4 fL (80.0-100.0); MONOCYTES 9.2 % (2-11); NEUTROPHIL ABS# 4.69 10x3/uL (1.78-5.38); NEUTROPHILS 59.9 % (40-80); PLATELET COUNT 318 10x3/uL (130-400); RBC 4.07 10x6/uL (4.20-6.10); RDW 14.1 % (11.5-14.5); WBC 7.8 10x3/uL (4.8-10.8)
[2020-10-28 05:56] LABS: ALBUMIN 2.4 g/dL (3.4-5.0); ALKALINE PHOSPHATASE 128 U/L (30-120); ALT (SGPT) 28 U/L (10-68); BILIRUBIN - TOTAL 0.25 mg/dL (0.2-1.3); CALC OSMOLALITY 290 mosm/kg (275-300); CALCIUM 9.7 mg/dL (8.5-10.1); CARBON DIOXIDE 31.1 mmol/L (21.0-32.0); CHLORIDE - SERUM 108 mmol/L (98-107); CREATININE - SERUM 0.6 mg/dL (0.6-1.3); GLUCOSE 89 mg/dL (74-106); POTASSIUM - SERUM 3.5 mmol/L (3.5-5.1); PROTEIN - SERUM 6.6 g/dL (6.4-8.2); SODIUM 145 mmol/L (136-145); eGFR NON AFRICAN AMERICAN > 90 mL/min (90-120)
[2020-10-28 05:59] LABS: UREA NITROGEN 22 mg/dL (7-18)
--- NOTE | 2020-10-28 08:55 | NUR ---
PT RESTING QUIETLY IN BED. HE SITS UP, MAKING MOTION OF EATING AND DRINKING, USING HIS BED LINEN TO WIPE HIS FACE. HE FIDGETS WITH SIDES OF BED, BUT IS CALM AND COOPERATIVE AT THIS TIME. ASSISTED PT WITH BREAKFAST. ADMINISTERED AM MEDS AT THIS TIME. NO ACUTE DISTRESS NOTED AT THIS TIME. CL WITHIN REACH. STEVE POC
[2020-10-28 09:27] VITALS: BP 103/66
--- NOTE | 2020-10-28 13:15 | NUR ---
ASSISTED PT IN FEEDING HIM LUNCH. PT CONSUMED MEAL VERY WELL. YOANA WELL. CONSUMED 2 ENSURE, 120ML OF TEA AND WATER. PT REMAINS DISORIENTED, ORIENTED ONLY TO PERSON. HE CONTINUES TO PICK AT HIS BED LINENS, BITING AT SHEET WHEN FEEDING, IF IT WERE FOOD. DOES NOT PRESENT IN ANY ACUTE DISTRESS. CONTINUE POC
[2020-10-28 15:22] VITALS: BP 103/62
--- NOTE | 2020-10-28 17:00 | NUR ---
PROVIDED INCONTINENCE CARE TO PT. PT WAS CALM AND COOPERATIVE WITH STAFF DURING
--- NOTE | 2020-10-28 17:26 | NUR ---
PT RESTING WITH EYES CLOSED. RESP EVEN AND UNLABORED. ATTEMPTED TO ASSIST PT WITH SUPPER, ACKNOWLEDGES STAFF BUT PT ROLLS AWAY FROM STAFF AND DOES NOT ACKNOWLEDGE STAFF UPON INFORMING HIM OF MEAL BEING PRESENT. WILL CONTINUE TO OFFER TO ASSIST PT WITH MEAL
--- NOTE | 2020-10-28 19:00 | NUR ---
BEDSIDE REPORT RECEIVED AND CARE OF PT ASSUMED. PT LYING IN SUPINE POSITION WITH EYES CLOSED AND EASY RESPIRATIONS. NO IV SITED. PT IS IN DIONTE NET BED FOR SAFETY. WILL MONITOR CLOSELY FOR NEEDS.
--- NOTE | 2020-10-28 20:39 | NUR ---
HS MEDICATIONS GIVEN. MIXED LACTULOSE IN ENSURE AND CRUSHED PILLS AND MIXED WITH PUDDING...PT TOOK BOTH WITHOUT DIFFICULTY.
[2020-10-29 04:00] VITALS: BP 107/59
[2020-10-29 08:29] VITALS: BP 147/72
[2020-10-29 09:33] LABS: INR 1.25 (0.85-1.17); PROTIME 14.6 SECONDS (11.6-15.0)
[2020-10-29 09:42] LABS: ALBUMIN 2.6 g/dL (3.4-5.0); ALKALINE PHOSPHATASE 127 U/L (30-120); ALT (SGPT) 31 U/L (10-68); BILIRUBIN - TOTAL 0.29 mg/dL (0.2-1.3); CALC OSMOLALITY 295 mosm/kg (275-300); CALCIUM 9.1 mg/dL (8.5-10.1); CARBON DIOXIDE 29.1 mmol/L (21.0-32.0); CHLORIDE - SERUM 110 mmol/L (98-107); CREATININE - SERUM 0.8 mg/dL (0.6-1.3); GLUCOSE 81 mg/dL (74-106); POTASSIUM - SERUM 4.1 mmol/L (3.5-5.1); PROTEIN - SERUM 6.4 g/dL (6.4-8.2); SODIUM 147 mmol/L (136-145); UREA NITROGEN 26 mg/dL (7-18); eGFR NON AFRICAN AMERICAN > 90 mL/min (90-120)
[2020-10-29 09:58] LABS: BASOPHILS 0.5 % (0-2); HEMATOCRIT 38.8 % (42.0-54.0); HEMOGLOBIN 12.6 g/dL (13.5-17.5); IMMATURE GRANULOCYTES 0.2 % (0-5); LYMPHOCYTES 26.7 % (15-50); MCH 30.6 pg (26.0-34.0); MCHC 32.5 g/dL (31.0-37.0); MCV 94.2 fL (80.0-100.0); MEAN PLATELET VOLUME 9.3 fL (7.4-10.4); MONOCYTES 7.9 % (2-11); NEUTROPHILS 62.7 % (40-80); PLATELET COUNT 304 10x3/uL (130-400); RBC 4.12 10x6/uL (4.20-6.10); RDW 14.5 % (11.5-14.5); WBC 8.6 10x3/uL (4.8-10.8)
[2020-10-29 12:43] VITALS: BP 84/55
--- NOTE | 2020-10-29 13:27 | PN ---
PATIENT:REBECCA BUI MEDICAL RECORD: [id number] LOCATION:[id number] ADMISSION DATE: 10/11/20 PROGRESS NOTE DATE OF SERVICE: 10/25/2020 SUBJECTIVE: Mr. Bui is 60 years old and he has been hospitalized here since the middle of September. He continues to be quite confused and at times, he is a little agitated. He has an ammonia level that is elevated, but it is actually better than it has previously been. He is a very high fall risk and shows evidence of significant confusion. Underlying this is a history of mental illness with an established diagnosis of bipolar disorder along with an established history of hepatitis from chronic longstanding substance abuse. At this point, he is only partially oriented, but he is cooperative. He has also had a recent problem with some agitation. ASSESSMENT: 1. Bipolar disorder. 2. Metabolic encephalopathy. 3. Liver failure. PLAN: At this time, the patient's behaviors are probably not going to improve significantly with pharmacologic action. His condition appears to be a baseline level of low functioning. He is in need of 24-hour a day supervision and I would recommend care home placement. This supportive care would be the appropriate course at this point. TRANSINT:[id number] Voice Confirmation ID: [id number] DOCUMENT ID: [id number] JASS HUBBARD MD at 1327 CC: [id number] DICTATION DATE: 10/25/201803 CLIENT TECHNICAL SPECIALIST: 10/25/202135 ADM IN [facility] [id number] [place] [address]
--- NOTE | 2020-10-29 13:59 | NUR ---
Nutrition reassessment: Diet order: Regular with thin liquids - upgraded today PO intake continues to be ~50% of meals; however, pt is drinking 2 Ensure at a time at some meals. Labs reviewed Ht: 6' Wt: 153# IBW: 178# +/-10% BMI: 20.7 Nutrition diagnosis: - Inadequate oral intake R/T dementia AEB po intake continues to < 50% of meals Goals: - PO intake =/> 75% of meals, snacks - Meet at least 75% of estimated fluid needs - Stable wt + increase to UBW/IBW Interventions: - Provide food choices with selective menus and honor food preferences - Continue to provide nutritional supplements. Recommendations: Pt may benefit from an appetite stimulant Follow-up: 11/01/20
--- NOTE | 2020-10-29 16:12 | NUR ---
OT NOTE: PT REQUIRED MAX A FOR LB HYGIENE AND UB HYGIENE. PT REQUIRED MAX A TO DOFF/SAMPSON BRIEFS. PT REQUIRED MAX A FOR SIT TO STAND. PT REQUIRED MAX A FOR SUPINE TO SIT. PT IS CONFUSED. [phone] THANK YOU,RACHELE KHAN
--- NOTE | 2020-10-29 16:18 | MORECARE ---
CASE MANAGEMENT DISCHARGE SUMMARY PATIENT: REBECCA PORTILLO UNIT: [id number] ADM DATE: 10/11/20 AGE: 60 : 64 SEX: M ROOM/BED: D.2233 AUTHOR: SHERRILL NORMAN PHYSICIAN: REFERRING PHYSICIAN: JULIANNA LANE MD DATE OF SERVICE: 10/29/20 Discharge Plan Patient Name: REBECCA PORTILLO Facility: [facility]:[place] : 1960 Planned Disposition: Anticipated Discharge Date: Discharge Date: Expected LOS: Initial Reviewer: [id number] Initial Review Date: 10/11/2020 Generated: 10/29/20 5:17 pm Comments DCP- Discharge Planning Updated by [id number]: Riannamarita Kline on 10/29/20 3:[address] Patient Name: REBECCA PORTILLO Admission Status: ER Accout number: [id number] Admission Date: 10-11-2020 : 1960 Admission Diagnosis:METABOLIC ENCEPHALOPATHY Attending: JULIANNA JACK Current LOS: 18 Anticipated DC Date: Planned Disposition: Primary Insurance: [employer] PPO Discharge Planning Comments: CM SPOKE WITH PATIENT VIA TELEPHONE TODAY AT [phone]. SHE STATES HE WAS DIAGNOSED WITH WERNICKE'S LAST JUNE AT [facility] IN [place]. SHE IS REQUESTING A NEUROLOGIST SEE HER AND POTENTIAL TRANSFER TO [facility] IF POSSIBLE. I TOLD HER WE WOULD GET THE CONSULT AND GO FROM THERE. I EXPLAINED THAT A LATERAL TRANSFER WOULD REQUIRE AN ACCEPTING PHYSICIAN AT THE FACILITY AND FAMILY RESPONSIBLE FOR TRANSPORT. IT IS DIFFERENT CASE IF TRANSFER IS FOR HIGHER LEVEL OF CARE. I WILL CALL HER TOMORROW AFTER NEURO ENTERS THEIR RECOMMENDATIONS. CM TO FOLLOW AND ASSIST NEEDED. Can Tester: Rianna Kline DCP- Discharge Planning Updated by [email or web address]: Rianna Kline on 10/26/20 1:[address] Patient Name: REBECCA PORTILLO Admission Status: ER Accout number: [id number] Admission Date: 10-11-2020 : 1960 Admission Diagnosis:METABOLIC ENCEPHALOPATHY Attending: JULIANNA JACK Current LOS: 15 Anticipated DC Date: Planned Disposition: Primary Insurance: [employer] PPO Discharge Planning Comments: Patient is currently in a casi bed. I spoke with his Lydia today. She would like a provider to give her a call back at [phone]. She has requested a neurologist to see her . I talked with her about her husbands chances being very low of returning back to [facility]. They require their residents to be less than a one person assist and able to feed self. [facility]. I anticipate he will need senior living care placement. I will speak with the more about this after she talks with a provider here. CM to follow and assist as needed. Can Tester: Rianna Raisa IDP- Discharge Planning Updated by [id number]: Rianna Raisa on 10/24/20 1:[address] Patient Name: REBECCA PORTILLO Admission Status: ER Accout number: [id number] Admission Date: 10-11-2020 : 1960 Admission Diagnosis:METABOLIC ENCEPHALOPATHY Attending: JULIANNA JACK Current LOS: 13 Anticipated DC Date: Planned Disposition: Primary Insurance: [facility] Discharge Planning Comments: SPOKE WITH JOHNNY AT [facility]. I AM FAXING HER UPDATES. SHE WILL HAVE TO reassess to see if they will accept him back. She said he can be no more than a one person assist. I have reordered physical therapy, I don't see pt in there since 10/18/20. CM will fax updates to [phone]. Their telephone number is [phone]. CM to follow and assist as needed. Can Tester: Rianna Kline IDP- Discharge Planning Updated by [id number]: Rianna Kline on 10/19/20 3:[address] Patient Name: REBECCA PORTILLO Admission Status: ER Accout number: [id number] Admission Date: 10-11-2020 : 1960 Admission Diagnosis:METABOLIC ENCEPHALOPATHY Attending: JULIANNA JACK Current LOS: 8 Anticipated DC Date: Planned Disposition: [facility] Discharge Planning Comments: UPDATED CLINICALS FAXED TO [facility]. I SPOKE WITH REECE SPRAGUE AND PATIENT IS BETTER MENTALLY AND MAY NOT NEED INPATIENT PSYCH. HE IS FROM [facility], I CONNTACTED THEM AND THEY WILL NEED TO DO A REASSESSMENT BEFORE THEY COULD TAKE HIM BACK. I ANTICIPATE HE WILL BE HERE OVER THE WEEKEND. CM TO FOLLOW AND ASSIST NEEDED. Can Tester: Rianna Kline DCP- Discharge Planning Updated by [id number]: Teresa Toussaints on 10/18/20 1:[address] TELEPHONE CALL TO [facility].NO ANSWER. UNABLE TO LEAVE A MESSAGE. WILL CALL BACK. CXR WITH SUBSEGEMENTAL ATELECTASIS- START UPDRAFTS AND MUCINEX. SARS -COV2 RESULTS PENDING.B/P 89/54 - 109/56. PHYSICAL THERAPY WAS UNABLE TO AMBULATE SECONDARY TO CONFUSION, INABILITY TO FOLLOW COMMANDS OR ANSWER QUESTIONS. AWAIT THERAPY NOTES TODAY. AWAIT [facility] APPROVAL FOR ADMISSION TO [facility]. DCP- Discharge Planning Updated by [id number]: Rianna Kline on 10/17/20 12:[address] Patient Name: REBECCA PORTILLO Admission Status: ER Accout number: [id number] Admission Date: 10-11-2020 : 1960 Admission Diagnosis:METABOLIC ENCEPHALOPATHY Attending: JULIANNA JACK Current LOS: 6 Anticipated DC Date: Planned Disposition: Primary Insurance: [employer] [facility] Discharge Planning Comments: I HAVE CALLED [facility] FOR POSSIBLE NEED FOR INPATIENT PSYCH. I SPOKE WITH HIRAM. I HAVE FAXED THEM THE CLINICALS AND WAITING CALL BACK. CM TO FOLLOW AND ASSIST NEEDED. I HAVE ORDERED A PCR COVID FOR PLACEMENT REASONS, IF [facility] AGREES TO TAKE HIM THEY MAY ONLY REQUIRE RAPID. I AM WAITING TO HEAR BACK. Can Tester: Rianna Kline DCPIA - Discharge Planning Initial Assessment Updated by [id number]: Rianna Kline on 10/17/20 1:22 pm * PCP [facility] * Facility Name [facility] * Additional services required to return to the preadmission environment? Yes * Can the patient safely return to the preadmission environment? Yes * Has this patient been hospitalized within the prior 30 days at any hospital? No Last DP export: 10/26/20 1:55 pm Patient Name: REBECCA PORTILLO Page 31661 at 1618 All edits/amendments must be made on the electronic document DICTATION DATE: 10/29/201616 EMT BASIC: ELSI 10/29/201616 RPT#: [id number] DC DATE: STATUS: ADM IN [facility] [address] [place] [address] END OF REPORT
[2020-10-29 16:23] VITALS: BP 96/59
--- NOTE | 2020-10-29 19:00 | NUR ---
BEDSIDE REPORT RECEIVED AND CARE OF PT ASSUMED. PT SITTING UP IN DIONTE ENCLOSURE BED FIGITING WITH BLANKET. NO IV ACCESS. WILL MONITOR FOR NEEDS.
--- NOTE | 2020-10-29 19:45 | NUR ---
RECEIVED BEDSIDE REPORT. PT LAYING IN DIONTE BED, NO SIGNS OF DISTRESS. BED LOW, ALARM ON. WILL CONTINUE TO MONITOR.
[2020-10-29 20:00] VITALS: BP 108/62
--- NOTE | 2020-10-29 21:10 | NUR ---
HS MEDICATIONS GIVEN. GAVE LACTULOSE MIXED WITH ENSURE. CRUSHED PILLS AND MIXED WITH CHOCOLATE PUDDING. WILL MONITOR FOR NEEDS.
--- NOTE | 2020-10-29 21:30 | NUR ---
PT HAD LARGE INCONTINENT, LOOSE STOOL. BATHED AND ALL LINENS CHANGED.
--- NOTE | 2020-10-29 22:00 | NUR ---
PT HAD ANOTHER LARGE, INCONTINENT STOOL. BATHED AND ALL LINENS CHANGED.
[2020-10-30] VITALS: BP 120/69
[2020-10-30 04:00] VITALS: BP 141/77
[2020-10-30 06:49] LABS: BASOPHILS 0.4 % (0-2); EOSINOPHILS 1.4 % (0-7); HEMATOCRIT 43.4 % (42.0-54.0); HEMOGLOBIN 13.7 g/dL (13.5-17.5); IMMATURE GRANULOCYTES 0.3 % (0-5); LYMPHOCYTE ABS# 2.03 10x3/uL (1.32-3.57); LYMPHOCYTES 22.6 % (15-50); MCH 30.1 pg (26.0-34.0); MCHC 31.6 g/dL (31.0-37.0); MCV 95.4 fL (80.0-100.0); MEAN PLATELET VOLUME 9.4 fL (7.4-10.4); MONOCYTES 9.1 % (2-11); NEUTROPHIL ABS# 5.93 10x3/uL (1.78-5.38); NEUTROPHILS 66.2 % (40-80); PLATELET COUNT 315 10x3/uL (130-400); RBC 4.55 10x6/uL (4.20-6.10); RDW 14.7 % (11.5-14.5)
[2020-10-30 07:06] LABS: INR 1.15 (0.85-1.17); PROTIME 13.7 SECONDS (11.6-15.0)
[2020-10-30 07:09] LABS: ALKALINE PHOSPHATASE 141 U/L (30-120); ALT (SGPT) 32 U/L (10-68); BILIRUBIN - TOTAL 0.39 mg/dL (0.2-1.3); CALC OSMOLALITY 303 mosm/kg (275-300); CALCIUM 9.7 mg/dL (8.5-10.1); CARBON DIOXIDE 31.9 mmol/L (21.0-32.0); CHLORIDE - SERUM 111 mmol/L (98-107); CREATININE - SERUM 0.8 mg/dL (0.6-1.3); GLUCOSE 97 mg/dL (74-106); POTASSIUM - SERUM 3.9 mmol/L (3.5-5.1); PROTEIN - SERUM 7.1 g/dL (6.4-8.2); SODIUM 150 mmol/L (136-145); UREA NITROGEN 29 mg/dL (7-18); eGFR NON AFRICAN AMERICAN > 90 mL/min (90-120)
[2020-10-30 09:28] VITALS: BP 89/51
[2020-10-30 12:37] VITALS: BP 100/71
--- NOTE | 2020-10-30 13:38 | MORECARE ---
CASE MANAGEMENT DISCHARGE SUMMARY PATIENT: REBECCA PORTILLO UNIT: [id number] ADM DATE: 10/11/20 AGE: 60 : 64 SEX: M ROOM/BED: D.2233 AUTHOR: ESTERDOC PHYSICIAN: REFERRING PHYSICIAN: JULIANNA LANE MD DATE OF SERVICE: 10/30/20 Discharge Plan Patient Name: REBECCA PORTILLO Facility: [facility]:[place] : 1960 Planned Disposition: Anticipated Discharge Date: Discharge Date: Expected LOS: Initial Reviewer: [id number] Initial Review Date: 10/11/2020 Generated: 10/30/20 2:38 pm Comments DCP- Discharge Planning Updated by [id number]: Rianna Kline on 10/30/20 12:[address] Patient Name: REBECCA PORTILLO Admission Status: ER Accout number: [id number] Admission Date: 10-11-2020 : 1960 Admission Diagnosis:METABOLIC ENCEPHALOPATHY Attending: JULIANNA JACK Current LOS: 19 Anticipated DC Date: Planned Disposition: Primary Insurance: [employer] [facility] Discharge Planning Comments: PATIENT VISITED TODAY. SHE WOULD LIKE TO TALK WITH NEUROLOGY ONCE THEY HAVE SEEN HER , SO SHE HAS A BETTER IDEA OF WHAT HE WILL NEED AND WILL HE GET BETTER. I ALSO GAVE HER A LIST OF NURSING FACILITIES TO LOOK AT IN CASE HE IS NOT GOING TO GET BETTER. IN ORDER FOR HIM TO RETURN BACK TO [facility] HE WOULD NEED TO BE ABLE TO FEED HIMSELF AND BE NO MORE THAN A ONE PERSON ASSIST. PATIENT'S LIVES APPROX 1.5 HRS AWAY FROM [place] BUT IS TRYING TO COME HERE TOMORROW ALSO. I HAVE PLACED HIS MEDICAL RECORDS FROM [facility] ST[facility] ON THE CHART. CM TO FOLLOW AND ASSIST NEEDED. Rn Field Case Manager: Rianna Kline DCP- Discharge Planning Updated by [email or web address]: Rianna Kline on 10/29/20 3:[address] Patient Name: REBECCA PORTILLO Admission Status: ER Accout number: [id number] Admission Date: 10-11-2020 : 1960 Admission Diagnosis:METABOLIC ENCEPHALOPATHY Attending: JULIANNA JACK Current LOS: 18 Anticipated DC Date: Planned Disposition: Primary Insurance: [employer] [facility] Discharge Planning Comments: CM SPOKE WITH PATIENT VIA TELEPHONE TODAY AT [phone]. SHE STATES HE WAS DIAGNOSED WITH WERNICKE'S LAST JUNE AT [facility] IN [place]. SHE IS REQUESTING A NEUROLOGIST SEE HER AND POTENTIAL TRANSFER TO [facility] IF POSSIBLE. I TOLD HER WE WOULD GET THE CONSULT AND GO FROM THERE. I EXPLAINED THAT A LATERAL TRANSFER WOULD REQUIRE AN ACCEPTING PHYSICIAN AT THE FACILITY AND FAMILY RESPONSIBLE FOR TRANSPORT. IT IS DIFFERENT CASE IF TRANSFER IS FOR HIGHER LEVEL OF CARE. I WILL CALL HER TOMORROW AFTER NEURO ENTERS THEIR RECOMMENDATIONS. CM TO FOLLOW AND ASSIST NEEDED. Rn Field Case Manager: Rianna Raisa DCP- Discharge Planning Updated by [email or web address]: Rianna Raisa on 10/26/20 1:[address] Patient Name: REBECCA PORTILLO Admission Status: ER Accout number: [id number] Admission Date: 10-11-2020 : 1960 Admission Diagnosis:METABOLIC ENCEPHALOPATHY Attending: JULIANNA JACK Current LOS: 15 Anticipated DC Date: Planned Disposition: Primary Insurance: [employer] [facility] Discharge Planning Comments: Patient is currently in a casi bed. I spoke with his Lydia today. She would like a provider to give her a call back at [phone]. She has requested a neurologist to see her . I talked with her about her husbands chances being very low of returning back to [facility]. They require their residents to be less than a one person assist and able to feed self. He does not meet criteria for [facility] at this time. I anticipate he will need skilled nursing care placement. I will speak with the more about this after she talks with a provider here. CM to follow and assist as needed. Rn Field Case Manager: Rianna Kline DCP- Discharge Planning Updated by [id number]: Rianna Kline on 10/24/20 1:[address] Patient Name: REBECCA PORTILLO Admission Status: ER Accout number: [id number] Admission Date: 10-11-2020 : 1960 Admission Diagnosis:METABOLIC ENCEPHALOPATHY Attending: JULIANNA JACK Current LOS: 13 Anticipated DC Date: Planned Disposition: Primary Insurance: [employer] [facility] Discharge Planning Comments: SPOKE WITH JOHNNY AT [facility]. I AM FAXING HER UPDATES. SHE WILL HAVE TO reassess to see if they will accept him back. She said he can be no more than a one person assist. I have reordered physical therapy, I don't see pt in there since 10/18/20. CM will fax updates to [phone]. Their telephone number is [phone]. CM to follow and assist as needed. Rn Field Case Manager: Rianna Raisa DCP- Discharge Planning Updated by [id number]: Rianna Kline on 10/19/20 3:[address] Patient Name: REBECCA PORTILLO Admission Status: ER Accout number: [id number] Admission Date: 10-11-2020 : 1960 Admission Diagnosis:METABOLIC ENCEPHALOPATHY Attending: JULIANNA JACK Current LOS: 8 Anticipated DC Date: Planned Disposition: Primary Insurance: [employer] [facility] Discharge Planning Comments: UPDATED CLINICALS FAXED TO [facility]. I SPOKE WITH REECE SPRAGUE AND PATIENT IS BETTER MENTALLY AND MAY NOT NEED INPATIENT PSYCH. HE IS FROM [facility], I CONNTACTED THEM AND THEY WILL NEED TO DO A REASSESSMENT BEFORE THEY COULD TAKE HIM BACK. I ANTICIPATE HE WILL BE HERE OVER THE WEEKEND. CM TO FOLLOW AND ASSIST NEEDED. Rn Field Case Manager: Rianna Kline DCP- Discharge Planning Updated by [id number]: Teresa Alfredo on 10/18/20 1:[address] TELEPHONE CALL TO [facility].NO ANSWER. UNABLE TO LEAVE A MESSAGE. WILL CALL BACK. CXR WITH SUBSEGEMENTAL ATELECTASIS- START UPDRAFTS AND MUCINEX. SARS -COV2 RESULTS PENDING.B/P 89/54 - 109/56. PHYSICAL THERAPY WAS UNABLE TO AMBULATE SECONDARY TO CONFUSION, INABILITY TO FOLLOW COMMANDS OR ANSWER QUESTIONS. AWAIT THERAPY NOTES TODAY. AWAIT [facility] APPROVAL FOR ADMISSION TO [facility]. DCP- Discharge Planning Updated by [id number]: Rianna Raisa on 10/17/20 12:[address] Patient Name: REBECCA PORTILLO Admission Status: ER Accout number: [id number] Admission Date: 10-11-2020 : 1960 Admission Diagnosis:METABOLIC ENCEPHALOPATHY Attending: JULIANNA JACK Current LOS: 6 Anticipated DC Date: Planned Disposition: Primary Insurance: [employer] [place] PPO Discharge Planning Comments: I HAVE CALLED [facility] FOR POSSIBLE NEED FOR INPATIENT PSYCH. I SPOKE WITH [facility]. I HAVE FAXED THEM THE CLINICALS AND WAITING CALL BACK. CM TO FOLLOW AND ASSIST NEEDED. I HAVE ORDERED A PCR COVID FOR PLACEMENT REASONS, IF [facility] AGREES TO TAKE HIM THEY MAY ONLY REQUIRE RAPID. I AM WAITING TO HEAR BACK. Rn Field Case Manager: Rianna Kline DCPIA - Discharge Planning Initial Assessment Updated by [id number]: Rianna Kline on 10/17/20 1:22 pm * PCP [facility] * Facility Name [facility] * Additional services required to return to the preadmission environment? Yes * Can the patient safely return to the preadmission environment? Yes * Has this patient been hospitalized within the prior 30 days at any hospital? No Last DP export: 10/29/20 3:18 pm Patient Name: REBECCA PORTILLO Page 12831 at 1338 All edits/amendments must be made on the electronic document DICTATION DATE: 10/30/20 1338 DUPLICATING MACHINE SERVICER: ELSI 10/30/20 1338 RPT#: [id number] DC DATE: STATUS: ADM IN [facility] [address] [place] [address] END OF REPORT
[2020-10-30 17:27] VITALS: BP 98/66
--- NOTE | 2020-10-30 19:45 | NUR ---
RECEIVED BEDSIDE REPORT. PT LAYING IN DIONTE BED, NO SIGNS OF DISTRESS. BED LOW, ALARM ON. WILL CONTINUE TO MONITOR.
[2020-10-30 20:00] VITALS: BP 114/67
--- NOTE | 2020-10-30 20:00 | NUR ---
PT IN DIONTE BED, OPENED BOTH SIDES AND PT SHOWS NO SIGNS OF DISTRESS BUT DOES BECOME COMBATIVE WHEN ASKED TO PERFORM ANY TASKS, SUCH MED PASS OR ADLS. WILL CONTINUE TO MONITOR Q2H.
--- NOTE | 2020-10-30 22:54 | NUR ---
PT REFUSES TO WEAR SCDS, HE IS CONFUSED AND WILL KEEP REMOVING THEM, WELL ALL CLOTHING AND BLANKETS. HE IS CURRENTLY IN A ENCLOSED BED FOR SAFETY. I HAVE PLACED A VIDEO MONITOR IN ROOM, TO ENSURE SAFETY. BED LOW, ALARM ON.
[2020-10-31 04:00] VITALS: BP 122/77
[2020-10-31 06:49] LABS: BASOPHILS 0.5 % (0-2); EOSINOPHILS 1.2 % (0-7); HEMATOCRIT 41.7 % (42.0-54.0); HEMOGLOBIN 13.2 g/dL (13.5-17.5); IMMATURE GRANULOCYTES 0.1 % (0-5); LYMPHOCYTE ABS# 2.26 10x3/uL (1.32-3.57); LYMPHOCYTES 28.1 % (15-50); MCH 30.3 pg (26.0-34.0); MCHC 31.7 g/dL (31.0-37.0); MCV 95.6 fL (80.0-100.0); MEAN PLATELET VOLUME 9.8 fL (7.4-10.4); MONOCYTES 8.8 % (2-11); NEUTROPHIL ABS# 4.92 10x3/uL (1.78-5.38); NEUTROPHILS 61.3 % (40-80); PLATELET COUNT 283 10x3/uL (130-400); RBC 4.36 10x6/uL (4.20-6.10); RDW 14.5 % (11.5-14.5)
[2020-10-31 06:54] LABS: INR 1.2 (0.85-1.17); PROTIME 14.1 SECONDS (11.6-15.0)
[2020-10-31 07:07] LABS: ALBUMIN 2.8 g/dL (3.4-5.0); ALKALINE PHOSPHATASE 131 U/L (30-120); ALT (SGPT) 32 U/L (10-68); BILIRUBIN - TOTAL 0.38 mg/dL (0.2-1.3); CALC OSMOLALITY 306 mosm/kg (275-300); CALCIUM 9.7 mg/dL (8.5-10.1); CARBON DIOXIDE 30.5 mmol/L (21.0-32.0); CHLORIDE - SERUM 113 mmol/L (98-107); CREATININE - SERUM 0.7 mg/dL (0.6-1.3); GLUCOSE 97 mg/dL (74-106); POTASSIUM - SERUM 3.5 mmol/L (3.5-5.1); PROTEIN - SERUM 7.4 g/dL (6.4-8.2); SODIUM 151 mmol/L (136-145); UREA NITROGEN 32 mg/dL (7-18); eGFR NON AFRICAN AMERICAN > 90 mL/min (90-120)
[2020-10-31 08:26] VITALS: BP 119/76
[2020-10-31 12:43] VITALS: BP 124/70
--- NOTE | 2020-10-31 14:10 | NUR ---
INITIATED IV X 3 ATTEMPTS LFA 20 GAUGE TPN INFUSING AT 75ML/HR
--- NOTE | 2020-10-31 14:45 | MORECARE ---
CASE MANAGEMENT DISCHARGE SUMMARY PATIENT: REBECCA PORTILLO UNIT: [id number] ADM DATE: 10/11/20 AGE: 60 : 64 SEX: M ROOM/BED: D.2233 AUTHOR: ESTERDOC PHYSICIAN: REFERRING PHYSICIAN: JULIANNA LANE MD DATE OF SERVICE: 10/31/20 Discharge Plan Patient Name: REBECCA PORTILLO Facility: [facility]:[place] : 1960 Planned Disposition: Anticipated Discharge Date: Discharge Date: Expected LOS: Initial Reviewer: [id number] Initial Review Date: 10/11/2020 Generated: 10/31/20 3:44 pm Comments DCP- Discharge Planning Updated by [id number]: Rianna Kline on 10/31/20 1:[address] Patient Name: REBECCA PORTILLO Admission Status: ER Accout number: [id number] Admission Date: 10-11-2020 : 1960 Admission Diagnosis:METABOLIC ENCEPHALOPATHY Attending: JULIANNA JACK Current LOS: 20 Anticipated DC Date: Planned Disposition: Primary Insurance: [facility] Discharge Planning Comments: CALLED PATIENT AND LEFT HER A VOICE MAIL. WAITING CALL BACK ON PREFERENCE OF HALF-WAY. I HAVE FILLED OUT DINORA, WAITING WIFES CALL BACK FOR SIGNATURE AND THEN I CAN SUBMIT. CM TO FOLLOW AND ASSIST NEEDED. Tip Bander: Rianna Kline DCP- Discharge Planning Updated by [id number]: Rianna Kline on 10/30/20 12:[address] Patient Name: REBECCA PORTILLO Admission Status: ER Accout number: [id number] Admission Date: 10-11-2020 : 1960 Admission Diagnosis:METABOLIC ENCEPHALOPATHY Attending: JULIANNA JACK Current LOS: 19 Anticipated DC Date: Planned Disposition: Primary Insurance: [employer] [place] PPO Discharge Planning Comments: PATIENT VISITED TODAY. SHE WOULD LIKE TO TALK WITH NEUROLOGY ONCE THEY HAVE SEEN HER , SO SHE HAS A BETTER IDEA OF WHAT HE WILL NEED AND WILL HE GET BETTER. I ALSO GAVE HER A LIST OF NURSING FACILITIES TO LOOK AT IN CASE HE IS NOT GOING TO GET BETTER. IN ORDER FOR HIM TO RETURN BACK TO [facility] HE WOULD NEED TO BE ABLE TO FEED HIMSELF AND BE NO MORE THAN A ONE PERSON ASSIST. PATIENT'S LIVES APPROX 1.5 HRS AWAY FROM [place] BUT IS TRYING TO COME HERE TOMORROW ALSO. I HAVE PLACED HIS MEDICAL RECORDS FROM [facility] STAY ON THE CHART. CM TO FOLLOW AND ASSIST NEEDED. Tip Bander: Rianna Kline GAP- Discharge Planning Updated by [id number]: Rianna Kline on 10/29/20 3:[address] Patient Name: REBECCA PORTILLO Admission Status: ER Accout number: [id number] Admission Date: 10-11-2020 : 1960 Admission Diagnosis:METABOLIC ENCEPHALOPATHY Attending: JULIANNA JACK Current LOS: 18 Anticipated DC Date: Planned Disposition: Primary Insurance: [facility] Discharge Planning Comments: CM SPOKE WITH PATIENT VIA TELEPHONE TODAY AT [phone]. SHE STATES HE WAS DIAGNOSED WITH WERNICKE'S LAST JUNE AT [facility] IN [place]. SHE IS REQUESTING A NEUROLOGIST SEE HER AND POTENTIAL TRANSFER TO [facility] IF POSSIBLE. I TOLD HER WE WOULD GET THE CONSULT AND GO FROM THERE. I EXPLAINED THAT A LATERAL TRANSFER WOULD REQUIRE AN ACCEPTING PHYSICIAN AT THE FACILITY AND FAMILY RESPONSIBLE FOR TRANSPORT. IT IS DIFFERENT CASE IF TRANSFER IS FOR HIGHER LEVEL OF CARE. I WILL CALL HER TOMORROW AFTER NEURO ENTERS THEIR RECOMMENDATIONS. CM TO FOLLOW AND ASSIST NEEDED. Tip Bander: Rianna Kline [facility]- Discharge Planning Updated by [email or web address]: Rianna Kline on 10/26/20 1:[address] Patient Name: REBECCA PORTILLO Admission Status: ER Accout number: [id number] Admission Date: 10-11-2020 : 1960 Admission Diagnosis:METABOLIC ENCEPHALOPATHY Attending: JULIANNA JACK Current LOS: 15 Anticipated DC Date: Planned Disposition: Primary Insurance: [facility] Discharge Planning Comments: Patient is currently in a casi bed. I spoke with his Lydia today. She would like a provider to give her a call back at [phone]. She has requested a neurologist to see her . I talked with her about her husbands chances being very low of returning back to [facility]. They require their residents to be less than a one person assist and able to feed self. He does not meet criteria for [facility] at this time. I anticipate he will need alf care placement. I will speak with the more about this after she talks with a provider here. CM to follow and assist as needed. Tip Bander: Rianna Raisa DCP- Discharge Planning Updated by [id number]: Rianna Kline on 10/24/20 1:[address] Patient Name: REBECCA PORTILLO Admission Status: ER Accout number: [id number] Admission Date: 10-11-2020 : 1960 Admission Diagnosis:METABOLIC ENCEPHALOPATHY Attending: JULIANNA JACK Current LOS: 13 Anticipated DC Date: Planned Disposition: Primary Insurance: [employer] [facility] Discharge Planning Comments: SPOKE WITH JOHNNY AT [facility]. I AM FAXING HER UPDATES. SHE WILL HAVE TO reassess to see if they will accept him back. She said he can be no more than a one person assist. I have reordered physical therapy, I don't see pt in there since 10/18/20. CM will fax updates to [phone]. Their telephone number is [phone]. CM to follow and assist as needed. Tip Bander: Rianna Raisa DCP- Discharge Planning Updated by [id number]: Rianna Kline on 10/19/20 3:[address] Patient Name: REBECCA PORTILLO Admission Status: ER Accout number: [id number] Admission Date: 10-11-2020 : 1960 Admission Diagnosis:METABOLIC ENCEPHALOPATHY Attending: JULIANNA JACK Current LOS: 8 Anticipated DC Date: Planned Disposition: Primary Insurance: [employer] [facility] PPO Discharge Planning Comments: UPDATED CLINICALS FAXED TO [facility]. I SPOKE WITH REECE SPRAGUE AND PATIENT IS BETTER MENTALLY AND MAY NOT NEED INPATIENT PSYCH. HE IS FROM [facility], I CONNTACTED THEM AND THEY WILL NEED TO DO A REASSESSMENT BEFORE THEY COULD TAKE HIM BACK. I ANTICIPATE HE WILL BE HERE OVER THE WEEKEND. CM TO FOLLOW AND ASSIST NEEDED. Tip Bander: Rianna Kline DCP- Discharge Planning Updated by [id number]: Teresa Alfredo on 10/18/20 1:[address] TELEPHONE CALL TO [facility].NO ANSWER. UNABLE TO LEAVE A MESSAGE. WILL CALL BACK. CXR WITH SUBSEGEMENTAL ATELECTASIS- START UPDRAFTS AND MUCINEX. SARS -COV2 RESULTS PENDING.B/P 89/54 - 109/56. PHYSICAL THERAPY WAS UNABLE TO AMBULATE SECONDARY TO CONFUSION, INABILITY TO FOLLOW COMMANDS OR ANSWER QUESTIONS. AWAIT THERAPY NOTES TODAY. AWAIT [facility] APPROVAL FOR ADMISSION TO [facility]. DCP- Discharge Planning Updated by [id number]: Rianna Kline on 10/17/20 12:[address] Patient Name: REBECCA PORTILLO Admission Status: ER Accout number: [id number] Admission Date: 10-11-2020 : 1960 Admission Diagnosis:METABOLIC ENCEPHALOPATHY Attending: JULIANNA JACK Current LOS: 6 Anticipated DC Date: Planned Disposition: Primary Insurance: [employer] [facility] Discharge Planning Comments: I HAVE CALLED [facility] FOR POSSIBLE NEED FOR INPATIENT PSYCH. I SPOKE WITH HIRAM. I HAVE FAXED THEM THE CLINICALS AND WAITING CALL BACK. CM TO FOLLOW AND ASSIST NEEDED. I HAVE ORDERED A PCR COVID FOR PLACEMENT REASONS, IF [facility] AGREES TO TAKE HIM THEY MAY ONLY REQUIRE RAPID. I AM WAITING TO HEAR BACK. Tip Bander: Rianna Kline DCPIA - Discharge Planning Initial Assessment Updated by [id number]: Rianna Kline on 10/17/20 1:22 pm * PCP [facility] * Facility Name [facility] * Additional services required to return to the preadmission environment? Yes * Can the patient safely return to the preadmission environment? Yes * Has this patient been hospitalized within the prior 30 days at any hospital? No Last DP export: 10/30/20 12:38 pm Patient Name: REBECCA PORTILLO Page 95522 at 1445 All edits/amendments must be made on the electronic document DICTATION DATE: 10/31/201444 CHANNEL CEMENTER OUTSOLE MACHINE: ELSI 10/31/201444 RPT#: [id number] DC DATE: STATUS: ADM IN [facility] [address] [place] [address] END OF REPORT
[2020-10-31 17:11] VITALS: BP 117/64
[2020-10-31 20:00] VITALS: BP 118/75
--- NOTE | 2020-10-31 22:49 | NUR ---
I have reviewed this patient and I concur with the Shift Assessment completed by the Licensed Practical Nurse today this shift.
[2020-11-01 04:00] VITALS: BP 123/80
[2020-11-01 05:27] LABS: BASOPHILS 0.2 % (0-2); EOSINOPHILS 0.4 % (0-7); HEMATOCRIT 43.3 % (42.0-54.0); HEMOGLOBIN 13.7 g/dL (13.5-17.5); IMMATURE GRANULOCYTES 0.1 % (0-5); LYMPHOCYTE ABS# 1.41 10x3/uL (1.32-3.57); LYMPHOCYTES 10.4 % (15-50); MCH 30.4 pg (26.0-34.0); MCHC 31.6 g/dL (31.0-37.0); MEAN PLATELET VOLUME 9.5 fL (7.4-10.4); MONOCYTES 6.7 % (2-11); NEUTROPHIL ABS# 11.15 10x3/uL (1.78-5.38); NEUTROPHILS 82.2 % (40-80); RBC 4.51 10x6/uL (4.20-6.10); RDW 14.7 % (11.5-14.5)
[2020-11-01 05:29] LABS: PLATELET COUNT 221 10x3/uL (130-400); WBC 13.6 10x3/uL (4.8-10.8)
[2020-11-01 06:01] LABS: INR 1.24 (0.85-1.17); PROTIME 14.5 SECONDS (11.6-15.0)
[2020-11-01 06:17] LABS: ALBUMIN 2.8 g/dL (3.4-5.0); ALKALINE PHOSPHATASE 127 U/L (30-120); ALT (SGPT) 29 U/L (10-68); BILIRUBIN - TOTAL 0.39 mg/dL (0.2-1.3); CALC OSMOLALITY 309 mosm/kg (275-300); CALCIUM 9.4 mg/dL (8.5-10.1); CREATININE - SERUM 0.7 mg/dL (0.6-1.3); GLUCOSE 92 mg/dL (74-106); POTASSIUM - SERUM 3.9 mmol/L (3.5-5.1); SODIUM 153 mmol/L (136-145); UREA NITROGEN 30 mg/dL (7-18); eGFR NON AFRICAN AMERICAN > 90 mL/min (90-120)
[2020-11-01 06:41] LABS: CHLORIDE - SERUM 116 mmol/L (98-107)
[2020-11-01 08:37] VITALS: BP 101/69
--- NOTE | 2020-11-01 10:02 | NUR ---
RESTRAINTS CHECKED AND RELEASED PER PROTOCOL. GOOD ROM NOTED.
[2020-11-01 13:14] VITALS: BP 98/65
--- NOTE | 2020-11-01 13:21 | NUR ---
OT NOTE: PT NO LONGER IN DIONTE BED. PT WAS LATHERGIC, HOWEVER, ABLE TO EVENTUALLY AROUSE. PT ACTUALLY DID BETTER TODAY. ABLE TO EAT SEVERAL BITES OF GOOD( DOES BETTER WITH FINGER FOODS)..ALSO ABLE TO CONSUME SEVERAL BOTTLES OF ENSURE.. PT WAS ABLE TO HOLD BOTTLE AND BRING TO MOUTH THE ENTIRE TIME.. VERBAL CUES REQUIRED TO STAY ON TASK. WES NÚÑEZ, OTR/L [phone]
--- NOTE | 2020-11-01 13:52 | NUR ---
Nutrition follow-up: Diet order: regular with nectar thick liquids OT and speech report pt ate several bites of breakfast and drank an Ensure this morning. Labs reviewed Wt: 153# Pt probably with malnutrition; however, no new wt since 10/13/20 Please get a current wt to chart RDN follow-up: 11/05/20
[2020-11-01 13:58] LABS: BILIRUBIN NEGATIVE (NEGATIVE); KETONE SMALL mg/dL (NEGATIVE); NITRITE NEGATIVE (NEGATIVE); UROBILINOGEN NORMAL mg/dL (< 2)
[2020-11-01 14:00] LABS: AMORPHOUS SEDIMENT <1+ LPF (NONE SEEN); BACTERIA FEW HPF (NONE SEEN); WHITE CELLS - URINE 0-5 HPF (0-1)
--- NOTE | 2020-11-01 15:30 | MORECARE ---
CASE MANAGEMENT DISCHARGE SUMMARY PATIENT: REBECCA PORTILLO UNIT: [id number] ADM DATE: 10/11/20 AGE: 60 : 64 SEX: M ROOM/BED: D.2233 AUTHOR: ESTERDOC PHYSICIAN: REFERRING PHYSICIAN: JULIANNA LANE MD DATE OF SERVICE: 11/01/20 Discharge Plan Patient Name: REBECCA PORTILLO Facility: [facility]:[place] : 1960 Planned Disposition: Anticipated Discharge Date: Discharge Date: Expected LOS: Initial Reviewer: [id number] Initial Review Date: 10/11/2020 Generated: 11/01/20 4:30 pm Comments DCP- Discharge Planning Updated by [id number]: Rianna Kline on 11/01/20 2:[address] Patient Name: REBECCA PORTILLO Admission Status: ER Accout number: [id number] Admission Date: 10-11-2020 : 1960 Admission Diagnosis:METABOLIC ENCEPHALOPATHY Attending: JULIANNA JACK Current LOS: 21 Anticipated DC Date: Planned Disposition: Primary [facility]: [facility] Discharge Planning Comments: CM called [facility] this morning requesting transfer of patient as requested by . Becky at [facility] transfer call center states they are at bed max and I would need to check back tomorrow. I notified and will call back in the morning. Email Administrator: Rianna Kline DCP- Discharge Planning Updated by [email or web address]: Rianna Kline on 10/31/20 1:[address] Patient Name: REBECCA PORTILLO Admission Status: ER Accout number: [id number] Admission Date: 10-11-2020 : 1960 Admission Diagnosis:METABOLIC ENCEPHALOPATHY Attending: JULIANNA JACK Current LOS: 20 Anticipated DC Date: Planned Disposition: Primary Insurance: [employer] [place] PPO Discharge Planning Comments: CALLED PATIENT AND LEFT HER A VOICE MAIL. WAITING CALL BACK ON PREFERENCE OF CARE HOME. I HAVE FILLED OUT DINORA, WAITING WIFES CALL BACK FOR SIGNATURE AND THEN I CAN SUBMIT. CM TO FOLLOW AND ASSIST NEEDED. Email Administrator: Rianna Kline DCP- Discharge Planning Updated by [id number]: Rianna Kline on 10/30/20 12:[address] Patient Name: REBECCA PORTILLO Admission Status: ER Accout number: [id number] Admission Date: 10-11-2020 : 1960 Admission Diagnosis:METABOLIC ENCEPHALOPATHY Attending: JULIANNA JACK Current LOS: 19 Anticipated DC Date: Planned Disposition: Primary Insurance: [employer] [facility] Discharge Planning Comments: PATIENT VISITED TODAY. SHE WOULD LIKE TO TALK WITH NEUROLOGY ONCE THEY HAVE SEEN HER , SO SHE HAS A BETTER IDEA OF WHAT HE WILL NEED AND WILL HE GET BETTER. I ALSO GAVE HER A LIST OF NURSING FACILITIES TO LOOK AT IN CASE HE IS NOT GOING TO GET BETTER. IN ORDER FOR HIM TO RETURN BACK TO [facility] HE WOULD NEED TO BE ABLE TO FEED HIMSELF AND BE NO MORE THAN A ONE PERSON ASSIST. PATIENT'S LIVES APPROX 1.5 HRS AWAY FROM [place] BUT IS TRYING TO COME HERE TOMORROW ALSO. I HAVE PLACED HIS MEDICAL RECORDS FROM [facility] STAY ON THE CHART. CM TO FOLLOW AND ASSIST NEEDED. Email Administrator: Rianna Kline DCP- Discharge Planning Updated by [id number]: Rianna Kline on 10/29/20 3:[address] Patient Name: REBECCA PORTILLO Admission Status: ER Accout number: [id number] Admission Date: 10-11-2020 : 1960 Admission Diagnosis:METABOLIC ENCEPHALOPATHY Attending: JULIANNA JACK Current LOS: 18 Anticipated DC Date: Planned Disposition: Primary Insurance: [employer] [facility] Discharge Planning Comments: CM SPOKE WITH PATIENT VIA TELEPHONE TODAY AT [phone]. SHE STATES HE WAS DIAGNOSED WITH [facility]ICKE'S LAST JUNE AT [facility] IN [place]. SHE IS REQUESTING A NEUROLOGIST SEE HER AND POTENTIAL TRANSFER TO [facility] IF POSSIBLE. I TOLD HER WE WOULD GET THE CONSULT AND GO FROM THERE. I EXPLAINED THAT A LATERAL TRANSFER WOULD REQUIRE AN ACCEPTING PHYSICIAN AT THE FACILITY AND FAMILY RESPONSIBLE FOR TRANSPORT. IT IS DIFFERENT CASE IF TRANSFER IS FOR HIGHER LEVEL OF CARE. I WILL CALL HER TOMORROW AFTER NEURO ENTERS THEIR RECOMMENDATIONS. CM TO FOLLOW AND ASSIST NEEDED. Email Administrator: Rianna Kline DCP- Discharge Planning Updated by [id number]: Rianna Kline on 10/26/20 1:[address] Patient Name: REBECCA PORTILLO Admission Status: ER Accout number: [id number] Admission Date: 10-11-2020 : 1960 Admission Diagnosis:METABOLIC ENCEPHALOPATHY Attending: JULIANNA JACK Current LOS: 15 Anticipated DC Date: Planned Disposition: Primary Insurance: [facility] PPO Discharge Planning Comments: Patient is currently in a casi bed. I spoke with his Lydia today. She would like a provider to give her a call back at [phone]. She has requested a neurologist to see her . I talked with her about her husbands chances being very low of returning back to [facility]. They require their residents to be less than a one person assist and able to feed self. [facility]. I anticipate he will need usp care placement. I will speak with the more about this after she talks with a provider here. CM to follow and assist as needed. Email Administrator: Rianna Kline COP- Discharge Planning Updated by [id number]: Rianna Kline on 10/24/20 1:[address] Patient Name: REBECCA PORTILLO Admission Status: ER Accout number: [id number] Admission Date: 10-11-2020 : 1960 Admission Diagnosis:METABOLIC ENCEPHALOPATHY Attending: JULIANNA JACK Current LOS: 13 Anticipated DC Date: Planned Disposition: Primary Insurance: [facility] PPO Discharge Planning Comments: SPOKE WITH JOHNNY AT [facility]. I AM FAXING HER UPDATES. SHE WILL HAVE TO reassess to see if they will accept him back. She said he can be no more than a one person assist. I have reordered physical therapy, I don't see pt in there since 10/18/20. CM will fax updates to [phone]. Their telephone number is [phone]. CM to follow and assist as needed. Email Administrator: Rianna Kline COP- Discharge Planning Updated by [id number]: Rianna Kline on 10/19/20 3:[address] Patient Name: REBECCA PORTILLO Admission Status: ER Accout number: [id number] Admission Date: 10-11-2020 : 1960 Admission Diagnosis:METABOLIC ENCEPHALOPATHY Attending: JULIANNA JACK Current LOS: 8 Anticipated DC Date: Planned Disposition: Primary Insurance: [facility] PPO Discharge Planning Comments: UPDATED CLINICALS FAXED TO [facility]. I SPOKE WITH REECE SPRAGUE AND PATIENT IS BETTER MENTALLY AND MAY NOT NEED INPATIENT PSYCH. HE IS FROM [facility], I CONNTACTED THEM AND THEY WILL NEED TO DO A REASSESSMENT BEFORE THEY COULD TAKE HIM BACK. I ANTICIPATE HE WILL BE HERE OVER THE WEEKEND. CM TO FOLLOW AND ASSIST NEEDED. Email Administrator: Rianna Kline DCP- Discharge Planning Updated by [id number]: Teresa Alfredo on 10/18/20 1:[address] TELEPHONE CALL TO [facility].NO ANSWER. UNABLE TO LEAVE A MESSAGE. WILL CALL BACK. CXR WITH SUBSEGEMENTAL ATELECTASIS- START UPDRAFTS AND MUCINEX. SARS -COV2 RESULTS PENDING.B/P 89/54 - 109/56. PHYSICAL THERAPY WAS UNABLE TO AMBULATE SECONDARY TO CONFUSION, INABILITY TO FOLLOW COMMANDS OR ANSWER QUESTIONS. AWAIT THERAPY NOTES TODAY. AWAIT [facility] APPROVAL FOR ADMISSION TO [facility]. DCP- Discharge Planning Updated by [id number]: Rianna Kline on 10/17/20 12:[address] Patient Name: REBECCA PORTILLO Admission Status: ER Accout number: [id number] Admission Date: 10-11-2020 : 1960 Admission Diagnosis:METABOLIC ENCEPHALOPATHY Attending: JULIANNA JACK Current LOS: 6 Anticipated DC Date: Planned Disposition: Primary Insurance: [facility] PPO Discharge Planning Comments: I HAVE CALLED [facility] FOR POSSIBLE NEED FOR INPATIENT PSYCH. I SPOKE WITH [facility]. I HAVE FAXED THEM THE CLINICALS AND WAITING CALL BACK. CM TO FOLLOW AND ASSIST NEEDED. I HAVE ORDERED A PCR COVID FOR PLACEMENT REASONS, IF [facility] AGREES TO TAKE HIM THEY MAY ONLY REQUIRE RAPID. I AM WAITING TO HEAR BACK. Email Administrator: Rianna Kline DCPIA - Discharge Planning Initial Assessment Updated by [id number]: Rianna Kline on 10/17/20 1:22 pm * PCP [facility] * Facility Name [facility] * Additional services required to return to the preadmission environment? Yes * Can the patient safely return to the preadmission environment? Yes * Has this patient been hospitalized within the prior 30 days at any hospital? No Last DP export: 10/31/20 1:45 p Patient Name: REBECCA PORTILLO Page 67094 at 1530 All edits/amendments must be made on the electronic document DICTATION DATE: 11/01/201529 FLASH OVEN OPERATOR: ELSI 11/01/201529 RPT#: [id number] DC DATE: STATUS: ADM IN [facility] [address] [place] [address] END OF REPORT
--- NOTE | 2020-11-01 17:02 | NUR ---
DSG CHAGED TO LEFT FOREARM.
[2020-11-01 18:27] VITALS: BP 107/72
[2020-11-01 20:00] VITALS: BP 113/87
--- NOTE | 2020-11-02 03:49 | NUR ---
PATIENT AWAKE, COMBATIVE. ATTEMPTING TO GET OUT OF BED. BED ALARM ON. TOLERATES THICKENED LIQUIDS WELL. WILL CONTINUE TO MONITOR.
[2020-11-02 04:00] VITALS: BP 98/57
[2020-11-02 05:08] LABS: BASOPHILS 0.4 % (0-2); EOSINOPHILS 1.5 % (0-7); HEMATOCRIT 44.4 % (42.0-54.0); HEMOGLOBIN 14.2 g/dL (13.5-17.5); IMMATURE GRANULOCYTES 0.3 % (0-5); LYMPHOCYTE ABS# 2.19 10x3/uL (1.32-3.57); LYMPHOCYTES 19.4 % (15-50); MCH 30.5 pg (26.0-34.0); MCV 95.5 fL (80.0-100.0); MEAN PLATELET VOLUME 9.4 fL (7.4-10.4); MONOCYTES 8.3 % (2-11); NEUTROPHIL ABS# 7.92 10x3/uL (1.78-5.38); NEUTROPHILS 70.1 % (40-80); PLATELET COUNT 215 10x3/uL (130-400); RBC 4.65 10x6/uL (4.20-6.10); WBC 11.3 10x3/uL (4.8-10.8)
[2020-11-02 05:22] LABS: INR 1.29 (0.85-1.17); PROTIME 14.9 SECONDS (11.6-15.0)
[2020-11-02 05:29] LABS: ALBUMIN 2.7 g/dL (3.4-5.0); ALKALINE PHOSPHATASE 121 U/L (30-120); ALT (SGPT) 24 U/L (10-68); BILIRUBIN - TOTAL 0.43 mg/dL (0.2-1.3); CALC OSMOLALITY 311 mosm/kg (275-300); CALCIUM 9.4 mg/dL (8.5-10.1); CARBON DIOXIDE 26.1 mmol/L (21.0-32.0); GLUCOSE 102 mg/dL (74-106); MAGNESIUM - SERUM 2.6 mg/dL (1.8-2.4); POTASSIUM - SERUM 3.8 mmol/L (3.5-5.1); PROTEIN - SERUM 7.7 g/dL (6.4-8.2); SODIUM 154 mmol/L (136-145); UREA NITROGEN 32 mg/dL (7-18)
[2020-11-02 05:48] LABS: eGFR NON AFRICAN AMERICAN 81 mL/min (90-120)
[2020-11-02 05:52] LABS: CHLORIDE - SERUM 118 mmol/L (98-107)
--- NOTE | 2020-11-02 06:36 | NUR ---
PATIENT PULLED OUT PIV. NEW 20G PLACED TO LEFT FOREARM. PATIENT THEN PULLED OUT THIS PIV. NEW 20G PIV PLACED TO RIGHT FOREARM. REINFORCED WITH TAPE AND KERLIX.
[2020-11-02 08:37] VITALS: BP 98/60
--- NOTE | 2020-11-02 10:39 | MORECARE ---
CASE MANAGEMENT DISCHARGE SUMMARY PATIENT: REBECCA PORTILLO UNIT: [id number] ADM DATE: 10/11/20 AGE: 60 : 64 SEX: M ROOM/BED: D.2233 AUTHOR: SHERRILL NORMAN PHYSICIAN: REFERRING PHYSICIAN: JULIANNA LANE MD DATE OF SERVICE: 11/02/20 Discharge Plan Patient Name: REBECCA PORTILLO Facility: [facility]:[place] : 1960 Planned Disposition: Anticipated Discharge Date: Discharge Date: Expected LOS: Initial Reviewer: [id number] Initial Review Date: 10/11/2020 Generated: 11/02/20 11:38 am Comments DCP- Discharge Planning Updated by [id number]: Rianna Kline on 11/02/20 9:[address] Patient Name: REBECCA PORTILLO Admission Status: ER Accout number: [id number] Admission Date: 10-11-2020 : 1960 Admission Diagnosis:METABOLIC ENCEPHALOPATHY Attending: JULIANNA JACK Current LOS: 22 Anticipated DC Date: Planned Disposition: Primary Insurance: [employer] [place] PPO Discharge Planning Comments: CM SPOKE WITH JC AT [facility] CALL CENTER AND THEIR SCIENTIFIC PHOTOGRAPHER WILL CALL OUR DOCTOR TODAY TO SEE IF THEY WILL ACCEPT THIS PATIENT FOR A LATERAL TRANSFER. Still Pump Operator: Rianna Kline DCP- Discharge Planning Updated by [id number]: Rianna Kline on 11/01/20 2:[address] Patient Name: REBECCA PORTILLO Admission Status: ER Accout number: [id number] Admission Date: 10-11-2020 : 1960 Admission Diagnosis:METABOLIC ENCEPHALOPATHY Attending: JULIANNA JACK Current LOS: 21 Anticipated DC Date: Planned Disposition: Primary Insurance: [employer] [place] P[place] Discharge Planning Comments: CM called [facility] this morning requesting transfer of patient as requested by . Becky at [facility] transfer call center states they are at bed max and I would need to check back tomorrow. I notified and will call back in the morning. Still Pump Operator: Rianna Kline DCP- Discharge Planning Updated by [id number]: Rianna Kline on 10/31/20 1:[address] Patient Name: REBECCA PORTILLO Admission Status: ER Accout number: [id number] Admission Date: 10-11-2020 : 1960 Admission Diagnosis:METABOLIC ENCEPHALOPATHY Attending: JULIANNA JACK Current LOS: 20 Anticipated DC Date: Planned Disposition: Primary Insurance: [employer] [facility] Discharge Planning Comments: CALLED PATIENT AND LEFT HER A VOICE MAIL. WAITING CALL BACK ON PREFERENCE OF USP. I HAVE FILLED OUT DINORA, WAITING WIFES CALL BACK FOR SIGNATURE AND THEN I CAN SUBMIT. CM TO FOLLOW AND ASSIST NEEDED. Still Pump Operator: Rianna Kline DCP- Discharge Planning Updated by [id number]: Rianna Kline on 10/30/20 12:[address] Patient Name: REBECCA PORTILLO Admission Status: ER Accout number: [id number] Admission Date: 10-11-2020 : 1960 Admission Diagnosis:METABOLIC ENCEPHALOPATHY Attending: JULIANNA JACK Current LOS: 19 Anticipated DC Date: Planned Disposition: Primary Insurance: [employer] [facility] Discharge Planning Comments: PATIENT VISITED TODAY. SHE WOULD LIKE TO TALK WITH NEUROLOGY ONCE THEY HAVE SEEN HER , SO SHE HAS A BETTER IDEA OF WHAT HE WILL NEED AND WILL HE GET BETTER. I ALSO GAVE HER A LIST OF NURSING FACILITIES TO LOOK AT IN CASE HE IS NOT GOING TO GET BETTER. IN ORDER FOR HIM TO RETURN BACK TO [facility] HE WOULD NEED TO BE ABLE TO FEED HIMSELF AND BE NO MORE THAN A ONE PERSON ASSIST. PATIENT'S LIVES APPROX 1.5 HRS AWAY FROM [place] BUT IS TRYING TO COME HERE TOMORROW ALSO. I HAVE PLACED HIS MEDICAL RECORDS FROM [facility] STAY ON THE CHART. CM TO FOLLOW AND ASSIST NEEDED. Still Pump Operator: Rianna Kline DCP- Discharge Planning Updated by [id number]: Rianna Kline on 10/29/20 3:[address] Patient Name: REBECCA PORTILLO Admission Status: ER Accout number: [id number] Admission Date: 10-11-2020 : 1960 Admission Diagnosis:METABOLIC ENCEPHALOPATHY Attending: JULIANNA JACK Current LOS: 18 Anticipated DC Date: Planned Disposition: Primary Insurance: [employer] [facility] Discharge Planning Comments: CM SPOKE WITH PATIENT VIA TELEPHONE TODAY AT [phone]. SHE STATES HE WAS DIAGNOSED WITH [facility] LAST JUNE AT [facility] IN [place]. SHE IS REQUESTING A NEUROLOGIST SEE HER AND POTENTIAL TRANSFER TO [facility] IF POSSIBLE. I TOLD HER WE WOULD GET THE CONSULT AND GO FROM THERE. I EXPLAINED THAT A LATERAL TRANSFER WOULD REQUIRE AN ACCEPTING PHYSICIAN AT THE FACILITY AND FAMILY RESPONSIBLE FOR TRANSPORT. IT IS DIFFERENT CASE IF TRANSFER IS FOR HIGHER LEVEL OF CARE. I WILL CALL HER TOMORROW AFTER NEURO ENTERS THEIR RECOMMENDATIONS. CM TO FOLLOW AND ASSIST NEEDED. Still Pump Operator: Rianna Kline DCP- Discharge Planning Updated by [id number]: Rianna Kline on 10/26/20 1:[address] Patient Name: REBECCA PORTILLO Admission Status: ER Accout number: [id number] Admission Date: 10-11-2020 : 1960 Admission Diagnosis:METABOLIC ENCEPHALOPATHY Attending: JULIANNA JACK Current LOS: 15 Anticipated DC Date: Planned Disposition: Primary Insurance: [employer] [facility] Discharge Planning Comments: Patient is currently in a casi bed. I spoke with his Lydia today. She would like a provider to give her a call back at [phone]. She has requested a neurologist to see her . I talked with her about her husbands chances being very low of returning back to [facility]. They require their residents to be less than a one person assist and able to feed self. He does not meet criteria for [facility] at this time. I anticipate he will need parts counterman care placement. I will speak with the more about this after she talks with a provider here. CM to follow and assist as needed. Still Pump Operator: Rianna Raisa DCP- Discharge Planning Updated by [id number]: Rianna Raisa on 10/24/20 1:[address] Patient Name: REBECCA PORTILLO Admission Status: ER Accout number: [id number] Admission Date: 10-11-2020 : 1960 Admission Diagnosis:METABOLIC ENCEPHALOPATHY Attending: JULIANNA JACK Current LOS: 13 Anticipated DC Date: Planned Disposition: Primary Insurance: [employer] [facility] Discharge Planning Comments: SPOKE WITH JOHNNY AT [facility]. I AM FAXING HER UPDATES. SHE WILL HAVE TO reassess to see if they will accept him back. She said he can be no more than a one person assist. I have reordered physical therapy, I don't see pt in there since 10/18/20. CM will fax updates to [phone]. Their telephone number is [phone]. CM to follow and assist as needed. Still Pump Operator: Rianna Raisa DCP- Discharge Planning Updated by [id number]: Rianna Kline on 10/19/20 3:[address] Patient Name: REBECCA PORTILLO Admission Status: ER Accout number: [id number] Admission Date: 10-11-2020 : 1960 Admission Diagnosis:METABOLIC ENCEPHALOPATHY Attending: JULIANNA JACK Current LOS: 8 Anticipated DC Date: Planned Disposition: Primary [facility] Discharge Planning Comments: UPDATED CLINICALS FAXED TO [facility]. I SPOKE WITH REECE SPRAGUE AND PATIENT IS BETTER MENTALLY AND MAY NOT NEED INPATIENT PSYCH. [facility], I CONNTACT[facility] THEM AND THEY WILL NEED TO DO A REASSESSMENT BEFORE THEY COULD TAKE HIM BACK. I ANTICIPATE HE WILL BE HERE OVER THE WEEKEND. CM TO FOLLOW AND ASSIST NEEDED. Still Pump Operator: Rianna Raisa DCP- Discharge Planning Updated by [id number]: Teresa Alfredo on 10/18/20 1:[address] TELEPHONE CALL TO [facility].NO ANSWER. UNABLE TO LEAVE A MESSAGE. WILL CALL BACK. CXR WITH SUBSEGEMENTAL ATELECTASIS- START UPDRAFTS AND MUCINEX. SARS -COV2 RESULTS PENDING.B/P 89/54 - 109/56. PHYSICAL THERAPY WAS UNABLE TO AMBULATE SECONDARY TO CONFUSION, INABILITY TO FOLLOW COMMANDS OR ANSWER QUESTIONS. AWAIT THERAPY NOTES TODAY. AWAIT [facility] APPROVAL FOR ADMISSION TO [facility]. DCP- Discharge Planning Updated by [id number]: Rianna Kline on 10/17/20 12:[address] Patient Name: REBECCA PORTILLO Admission Status: ER Accout number: [id number] Admission Date: 10-11-2020 : 1960 Admission Diagnosis:METABOLIC ENCEPHALOPATHY Attending: JULIANNA JACK Current LOS: 6 Anticipated DC Date: Planned Disposition: Primary Insurance: [employer] [place] PPO Discharge Planning Comments: I HAVE CALLED [facility] FOR POSSIBLE NEED FOR INPATIENT PSYCH. I SPOKE WITH [facility]. I HAVE FAXED THEM THE CLINICALS AND WAITING CALL BACK. CM TO FOLLOW AND ASSIST NEEDED. I HAVE ORDERED A PCR COVID FOR PLACEMENT REASONS, IF [facility] AGREES TO TAKE HIM THEY MAY ONLY REQUIRE RAPID. I AM WAITING TO HEAR BACK. Still Pump Operator: Rianna Raisa DCPIA - Discharge Planning Initial Assessment Updated by [email or web address]: Rianna Kline on 10/17/20 1:22 pm * PCP [facility] * Facility Name [facility] * Additional services required to return to the preadmission environment? Yes * Can the patient safely return to the preadmission environment? Yes * Has this patient been hospitalized within the prior 30 days at any hospital? No Last DP export: 11/01/20 2:30 p Patient Name: REBECCA PORTILLO Page 75490 at 1039 All edits/amendments must be made on the electronic document DICTATION DATE: 11/02/20 1039 MANAGER RECRUITING: ELSI 11/02/20 1039 RPT#: [id number] DC DATE: STATUS: ADM IN [facility] [address] [place] [address] END OF REPORT
[2020-11-02 12:19] VITALS: BP 97/71
--- NOTE | 2020-11-02 15:36 | NUR ---
OT NOTE: PT REQUIRED MAX A AND EXTENSIVE CUES FOR LB HYGIENE TASKS. 935-06 THANK YOU,RACHELE KHAN
[2020-11-02 16:45] VITALS: BP 117/78
[2020-11-02 20:16] VITALS: BP 107/74
[2020-11-03 00:38] VITALS: BP 113/67
--- NOTE | 2020-11-03 01:42 | NUR ---
PATIENT AWAKE, ATTEMPTING TO GET OUT OF BED. UNABLE TO REORIENT. REPEATEDLY TAKING OFF BRIEF AND CLOTHES. IV ACCESS INTACT. BED ALARM ON, BED SET TO LOW/LOCKED POSITION. WILL CONTINUE TO MONITOR.
[2020-11-03 04:57] VITALS: BP 125/80
[2020-11-03 06:28] LABS: BASOPHILS 0.3 % (0-2); EOSINOPHILS 1.5 % (0-7); HEMATOCRIT 41.7 % (42.0-54.0); HEMOGLOBIN 13.2 g/dL (13.5-17.5); IMMATURE GRANULOCYTES 0.2 % (0-5); LYMPHOCYTE ABS# 1.73 10x3/uL (1.32-3.57); LYMPHOCYTES 12.9 % (15-50); MCHC 31.7 g/dL (31.0-37.0); MCV 94.8 fL (80.0-100.0); MEAN PLATELET VOLUME 9.9 fL (7.4-10.4); MONOCYTES 7.2 % (2-11); NEUTROPHIL ABS# 10.41 10x3/uL (1.78-5.38); NEUTROPHILS 77.9 % (40-80); PLATELET COUNT 212 10x3/uL (130-400); RDW 14.5 % (11.5-14.5); WBC 13.4 10x3/uL (4.8-10.8)
[2020-11-03 07:02] LABS: ALBUMIN 2.4 g/dL (3.4-5.0); ALKALINE PHOSPHATASE 116 U/L (30-120); ALT (SGPT) 29 U/L (10-68); BILIRUBIN - TOTAL 0.44 mg/dL (0.2-1.3); CALC OSMOLALITY 293 mosm/kg (275-300); CALCIUM 8.7 mg/dL (8.5-10.1); CARBON DIOXIDE 27.4 mmol/L (21.0-32.0); CHLORIDE - SERUM 111 mmol/L (98-107); CREATININE - SERUM 0.6 mg/dL (0.6-1.3); GLUCOSE 107 mg/dL (74-106); MAGNESIUM - SERUM 2.1 mg/dL (1.8-2.4); PROTEIN - SERUM 6.3 g/dL (6.4-8.2); SODIUM 145 mmol/L (136-145); UREA NITROGEN 27 mg/dL (7-18); eGFR NON AFRICAN AMERICAN > 90 mL/min (90-120)
[2020-11-03 07:28] VITALS: BP 111/58
[2020-11-03 12:03] VITALS: BP 102/74
[2020-11-03 15:42] VITALS: BP 111/70
[2020-11-03 20:02] VITALS: BP 107/68
--- NOTE | 2020-11-03 22:04 | NUR ---
PATIENT STILL AOX1. WAS ABLE TO ANSWER A QUESTION APPROPRIATELY WITH A COHESIVE SENTENCE. CONTINUES IV FLUIDS AND PROCAL TO PIV IN RIGHT FOREARM. DRANK ENSURE WITH BEDTIME MEDICATIONS. CALM IN BED AT THIS TIME. BED ALARM ON.
[2020-11-04 04:52] VITALS: BP 106/67
--- NOTE | 2020-11-04 05:12 | NUR ---
PATIENT ATTEMPTING TO CLIMB OUT OF BED. REDIRECTED AND ASSISTED BACK INTO BED.
[2020-11-04 07:52] LABS: ALBUMIN 2.2 g/dL (3.4-5.0); ALKALINE PHOSPHATASE 105 U/L (30-120); ALT (SGPT) 25 U/L (10-68); BILIRUBIN - TOTAL 0.29 mg/dL (0.2-1.3); CALC OSMOLALITY 276 mosm/kg (275-300); CALCIUM 8.1 mg/dL (8.5-10.1); CARBON DIOXIDE 26.8 mmol/L (21.0-32.0); CHLORIDE - SERUM 107 mmol/L (98-107); CREATININE - SERUM 0.6 mg/dL (0.6-1.3); GLUCOSE 88 mg/dL (74-106); MAGNESIUM - SERUM 2.1 mg/dL (1.8-2.4); POTASSIUM - SERUM 3.9 mmol/L (3.5-5.1); PROTEIN - SERUM 5.7 g/dL (6.4-8.2); SODIUM 138 mmol/L (136-145); eGFR NON AFRICAN AMERICAN > 90 mL/min (90-120)
[2020-11-04 07:59] LABS: UREA NITROGEN 19 mg/dL (7-18)
[2020-11-04 08:17] LABS: BASOPHILS 0.3 % (0-2); EOSINOPHILS 2.7 % (0-7); HEMATOCRIT 39.4 % (42.0-54.0); HEMOGLOBIN 12.8 g/dL (13.5-17.5); IMMATURE GRANULOCYTES 0.3 % (0-5); LYMPHOCYTE ABS# 1.85 10x3/uL (1.32-3.57); LYMPHOCYTES 27.6 % (15-50); MCHC 32.5 g/dL (31.0-37.0); MEAN PLATELET VOLUME 9.8 fL (7.4-10.4); MONOCYTES 9.9 % (2-11); NEUTROPHIL ABS# 3.97 10x3/uL (1.78-5.38); NEUTROPHILS 59.2 % (40-80); PLATELET COUNT 193 10x3/uL (130-400); RBC 4.26 10x6/uL (4.20-6.10); RDW 14.2 % (11.5-14.5)
[2020-11-04 08:18] LABS: MCV 92.5 fL (80.0-100.0); WBC 6.7 10x3/uL (4.8-10.8)
[2020-11-04 09:33] VITALS: BP 96/66
--- NOTE | 2020-11-04 11:29 | NUR ---
ASSESSMENT PER FLOW SHEET. PATIENT IS WITHOUT DISTRESS. HE IS CONFUSED. FALL PREVENTION IN PLACE. DOOR OPEN TO MONITOR.
[2020-11-04 12:23] VITALS: BP 98/66
[2020-11-04 16:00] VITALS: BP 91/56
--- NOTE | 2020-11-04 16:04 | NUR ---
SLEEPING THIS AFTERNOON. REMAINS WITHOUT DISTRESS.FAMILY AT BEDSIDE.
--- NOTE | 2020-11-04 17:39 | NUR ---
FAMILY TO VISIT THIS AFTERNOON. HE ATE GOOD FOR LUNCH AND DINNER.REMAINS WITHOUT CHANGE. CONT PLAN OF CARE
[2020-11-04 19:44] VITALS: BP 101/65
[2020-11-05 00:48] VITALS: BP 109/62
--- NOTE | 2020-11-05 00:53 | NUR ---
PATIENT CONTINUES TO TRY TO GET OUT OF BED. REDIRECTED. BED ALARM ON. WILL CONTINUE TO MONITOR.
[2020-11-05 05:17] LABS: BASOPHILS 0.4 % (0-2); EOSINOPHILS 0.4 % (0-7); HEMATOCRIT 42.8 % (42.0-54.0); HEMOGLOBIN 14.1 g/dL (13.5-17.5); IMMATURE GRANULOCYTES 0.3 % (0-5); LYMPHOCYTE ABS# 0.67 10x3/uL (1.32-3.57); LYMPHOCYTES 9.7 % (15-50); MCH 30.4 pg (26.0-34.0); MCHC 32.9 g/dL (31.0-37.0); MCV 92.2 fL (80.0-100.0); MEAN PLATELET VOLUME 11.2 fL (7.4-10.4); MONOCYTES 10.5 % (2-11); NEUTROPHIL ABS# 5.45 10x3/uL (1.78-5.38); NEUTROPHILS 78.7 % (40-80); RBC 4.64 10x6/uL (4.20-6.10); WBC 6.9 10x3/uL (4.8-10.8)
[2020-11-05 05:22] LABS: PLATELET COUNT 102 10x3/uL (130-400)
[2020-11-05 05:34] LABS: ALBUMIN 2.5 g/dL (3.4-5.0); ALKALINE PHOSPHATASE 124 U/L (30-120); BILIRUBIN - TOTAL 0.31 mg/dL (0.2-1.3); CALC OSMOLALITY 279 mosm/kg (275-300); CALCIUM 8.4 mg/dL (8.5-10.1); CARBON DIOXIDE 23.8 mmol/L (21.0-32.0); CHLORIDE - SERUM 107 mmol/L (98-107); CREATININE - SERUM 0.6 mg/dL (0.6-1.3); GLUCOSE 104 mg/dL (74-106); MAGNESIUM - SERUM 2.1 mg/dL (1.8-2.4); PROTEIN - SERUM 6.6 g/dL (6.4-8.2); SODIUM 139 mmol/L (136-145); UREA NITROGEN 17 mg/dL (7-18); eGFR NON AFRICAN AMERICAN > 90 mL/min (90-120)
[2020-11-05 05:46] LABS: ALT (SGPT) 33 U/L (10-68); POTASSIUM - SERUM 4.6 mmol/L (3.5-5.1)
[2020-11-05 08:36] VITALS: BP 116/63
[2020-11-05 12:26] VITALS: BP 109/59
--- NOTE | 2020-11-05 13:25 | MORECARE ---
CASE MANAGEMENT DISCHARGE SUMMARY PATIENT: REBECCA PORTILLO UNIT: [id number] ADM DATE: 10/11/20 AGE: 60 : 64 SEX: M ROOM/BED: D.2233 AUTHOR: SHERRILL NORMAN PHYSICIAN: REFERRING PHYSICIAN: JULIANNA LANE MD DATE OF SERVICE: 11/05/20 Discharge Plan Patient Name: REBECCA PORTILLO Facility: [facility]:[place] : 1960 Planned Disposition: Anticipated Discharge Date: Discharge Date: Expected LOS: Initial Reviewer: [id number] Initial Review Date: 10/11/2020 Generated: 11/05/20 2:24 pm Comments DCP- Discharge Planning Updated by [id number]: Rianna Kline on 11/05/20 11:[address] Patient Name: REBECCA PORTILLO Admission Status: ER Accout number: [id number] Admission Date: 10-11-2020 : 1960 Admission Diagnosis:METABOLIC ENCEPHALOPATHY Attending: JULIANNA JACK Current LOS: 25 Anticipated DC Date: Planned Disposition: Primary [facility]: [facility] Discharge Planning Comments: Attempted to call Lydia, pt , I left her a voice mail. We will need the names of a skilled facility that I can send a referral to for correction placement. I will try to call her again this afternoon. Cane Splicer: Rianna Kline DCP- Discharge Planning Updated by [id number]: Rianna Kline on 11/02/20 8:[address] Patient Name: REBECCA PORTILLO Admission Status: ER Accout number: [id number] Admission Date: 10-11-2020 : 1960 Admission Diagnosis:METABOLIC ENCEPHALOPATHY Attending: JULIANNA JACK Current LOS: 22 Anticipated DC Date: Planned Disposition: Primary Insurance: [place] [place] Discharge Planning Comments: CM SPOKE WITH JC AT [facility] CALL CENTER AND THEIR LABORER VINEYARD WILL CALL OUR DOCTOR TODAY TO SEE IF THEY WILL ACCEPT THIS PATIENT FOR A LATERAL TRANSFER. Cane Splicer: Rianna Kline DCP- Discharge Planning Updated by [id number]: Rianna Kline on 11/01/20 1:[address] Patient Name: REBECCA PORTILLO Admission Status: ER Accout number: [id number] Admission Date: 10-11-2020 : 1960 Admission Diagnosis:METABOLIC ENCEPHALOPATHY Attending: JULIANNA JACK Current LOS: 21 Anticipated DC Date: Planned Disposition: Primary Insurance: [employer] [place] P[place] Discharge Planning Comments: CM called [facility] this morning requesting transfer of patient as requested by . Becky at [facility] transfer call center states they are at bed max and I would need to check back tomorrow. I notified and will call back in the morning. Cane Splicer: Rianna Raisa DCP- Discharge Planning Updated by [id number]: Rianna Kline on 10/31/20 12:[address] Patient Name: REBECCA PORTILLO Admission Status: ER Accout number: [id number] Admission Date: 10-11-2020 : 1960 Admission Diagnosis:METABOLIC ENCEPHALOPATHY Attending: JULIANNA JACK Current LOS: 20 Anticipated DC Date: Planned Disposition: Primary Insurance: [employer] [place] PPO Discharge Planning Comments: CALLED PATIENT AND LEFT HER A VOICE MAIL. WAITING CALL BACK ON PREFERENCE OF PRISON. I HAVE FILLED OUT DINORA, WAITING WIFES CALL BACK FOR SIGNATURE AND THEN I CAN SUBMIT. CM TO FOLLOW AND ASSIST NEEDED. Cane Splicer: Rianna Kline DCP- Discharge Planning Updated by [id number]: Rianna Raisa on 10/30/20 11:[address] Patient Name: REBECCA PORTILLO Admission Status: ER Accout number: [id number] Admission Date: 10-11-2020 : 1960 Admission Diagnosis:METABOLIC ENCEPHALOPATHY Attending: JULIANNA JACK Current LOS: 19 Anticipated DC Date: Planned Disposition: Primary Insurance: [employer] [place] PPO Discharge Planning Comments: PATIENT VISITED TODAY. SHE WOULD LIKE TO TALK WITH NEUROLOGY ONCE THEY HAVE SEEN HER , SO SHE HAS A BETTER IDEA OF WHAT HE WILL NEED AND WILL HE GET BETTER. I ALSO GAVE HER A LIST OF NURSING FACILITIES TO LOOK AT IN CASE HE IS NOT GOING TO GET BETTER. IN ORDER FOR HIM TO RETURN BACK TO [facility] HE WOULD NEED TO BE ABLE TO FEED HIMSELF AND BE NO MORE THAN A ONE PERSON ASSIST. PATIENT'S LIVES APPROX 1.5 HRS AWAY FROM [place] BUT IS TRYING TO COME HERE TOMORROW ALSO. I HAVE PLACED HIS MEDICAL RECORDS FROM [facility] STAY ON THE CHART. CM TO FOLLOW AND ASSIST NEEDED. Cane Splicer: Rianna Kline AZP- Discharge Planning Updated by [email or web address]: Rianna Kline on 10/29/20 2:[address] Patient Name: REBECCA PORTILLO Admission Status: ER Accout number: [id number] Admission Date: 10-11-2020 : 1960 Admission Diagnosis:METABOLIC ENCEPHALOPATHY Attending: JULIANNA JACK Current LOS: 18 Anticipated DC Date: Planned Disposition: Primary Insurance: [facility] Discharge Planning Comments: CM SPOKE WITH PATIENT VIA TELEPHONE TODAY AT [phone]. SHE STATES HE WAS DIAGNOSED WITH [facility] LAST JUNE AT [facility] IN [place]. SHE IS REQUESTING A NEUROLOGIST SEE HER AND POTENTIAL TRANSFER TO [facility] IF POSSIBLE. I TOLD HER WE WOULD GET THE CONSULT AND GO FROM THERE. I EXPLAINED THAT A LATERAL TRANSFER WOULD REQUIRE AN ACCEPTING PHYSICIAN AT THE FACILITY AND FAMILY RESPONSIBLE FOR TRANSPORT. IT IS DIFFERENT CASE IF TRANSFER IS FOR HIGHER LEVEL OF CARE. I WILL CALL HER TOMORROW AFTER NEURO ENTERS THEIR RECOMMENDATIONS. CM TO FOLLOW AND ASSIST NEEDED. Cane Splicer: Rianna Kline AZP- Discharge Planning Updated by [id number]: Rianna Kline on 10/26/20 12:[address] Patient Name: REBECCA PORTILLO Admission Status: ER Accout number: [id number] Admission Date: 10-11-2020 : 1960 Admission Diagnosis:METABOLIC ENCEPHALOPATHY Attending: JULIANNA JACK Current LOS: 15 Anticipated DC Date: Planned Disposition: Primary Insurance: [facility] Discharge Planning Comments: Patient is currently in a casi bed. I spoke with his Lydia today. She would like a provider to give her a call back at [phone]. She has requested a neurologist to see her . I talked with her about her husbands chances being very low of returning back to [facility]. They require their residents to be less than a one person assist and able to feed self. He does not meet criteria for [facility] at this time. I anticipate he will need penitentiary care placement. I will speak with the more about this after she talks with a provider here. CM to follow and assist as needed. Cane Splicer: Rianna Kline DCP- Discharge Planning Updated by [id number]: Rianna Kline on 10/24/20 12:[address] Patient Name: REBECCA PORTILLO Admission Status: ER Accout number: [id number] Admission Date: 10-11-2020 : 1960 Admission Diagnosis:METABOLIC ENCEPHALOPATHY Attending: JULIANNA JACK Current LOS: 13 Anticipated DC Date: Planned Disposition: Primary Insurance: [facility] PPO Discharge Planning Comments: SPOKE WITH JOHNNY AT [facility]. I AM FAXING HER UPDATES. SHE WILL HAVE TO reassess to see if they will accept him back. She said he can be no more than a one person assist. I have reordered physical therapy, I don't see pt in there since 10/18/20. CM will fax updates to [phone]. Their telephone number is [phone]. CM to follow and assist as needed. Cane Splicer: Rianna Kline DCP- Discharge Planning Updated by [id number]: Rianna Kline on 10/19/20 2:[address] Patient Name: REBECCA PORTILLO Admission Status: ER Accout number: [id number] Admission Date: 10-11-2020 : 1960 Admission Diagnosis:METABOLIC ENCEPHALOPATHY Attending: JULIANNA JACK Current LOS: 8 Anticipated DC Date: Planned Disposition: Primary Insurance: [facility] PPO Discharge Planning Comments: UPDATED CLINICALS FAXED TO [facility]. I SPOKE WITH REECE SPRAGUE AND PATIENT IS BETTER MENTALLY AND MAY NOT NEED INPATIENT PSYCH. HE IS FROM [facility], I CONNTACTED THEM AND THEY WILL NEED TO DO A REASSESSMENT BEFORE THEY COULD TAKE HIM BACK. I ANTICIPATE HE WILL BE HERE OVER THE WEEKEND. CM TO FOLLOW AND ASSIST NEEDED. Cane Splicer: Rianna Raisa DCP- Discharge Planning Updated by [id number]: Teresa Alfredo on 10/18/20 12:[address] TELEPHONE CALL TO [facility].NO ANSWER. UNABLE TO LEAVE A MESSAGE. WILL CALL BACK. CXR WITH SUBSEGEMENTAL ATELECTASIS- START UPDRAFTS AND MUCINEX. SARS -COV2 RESULTS PENDING.B/P 89/54 - 109/56. PHYSICAL THERAPY WAS UNABLE TO AMBULATE SECONDARY TO CONFUSION, INABILITY TO FOLLOW COMMANDS OR ANSWER QUESTIONS. AWAIT THERAPY NOTES TODAY. AWAIT [facility] APPROVAL FOR ADMISSION TO [facility]. DCP- Discharge Planning Updated by [id number]: Rianna lKine on 10/17/20 11:[address] Patient Name: REBECCA PORTILLO Admission Status: ER Accout number: [id number] Admission Date: 10-11-2020 : 1960 Admission Diagnosis:METABOLIC ENCEPHALOPATHY Attending: JULIANNA JACK Current LOS: 6 Anticipated DC Date: Planned Disposition: Primary Insurance: [employer] PPO Discharge Planning Comments: I HAVE CALLED [facility] FOR POSSIBLE NEED FOR INPATIENT PSYCH. I SPOKE WITH HIRAM. I HAVE FAXED THEM THE CLINICALS AND WAITING CALL BACK. CM TO FOLLOW AND ASSIST NEEDED. I HAVE ORDERED A PCR COVID FOR PLACEMENT REASONS, IF [facility] AGREES TO TAKE HIM THEY MAY ONLY REQUIRE RAPID. I AM WAITING TO HEAR BACK. Cane Splicer: Rianna Kline DCPIA - Discharge Planning Initial Assessment Updated by [id number]: Rianna Kline on 10/17/20 1:22 pm * PCP [facility] * Facility Name [facility] * Additional services required to return to the preadmission environment? Yes * Can the patient safely return to the preadmission environment? Yes * Has this patient been hospitalized within the prior 30 days at any hospital? No Last DP export: 11/02/20 8:39 a Patient Name: REBECCA PORTILLO Page 25244 at 1325 All edits/amendments must be made on the electronic document DICTATION DATE: 11/05/[address] MAINTENANCE CREW WORKER: ELSI 11/05/20 1324 RPT#: [id number] DC DATE: STATUS: ADM IN [facility] [address] [place] [address] END OF REPORT
--- NOTE | 2020-11-05 14:02 | NUR ---
Nutrition Re-Assessment: Diet: Regular [place] Thick liquid + Ensure TID PO intake: 0-25% x last 3 meals ProcalAmine @ 75mL/hr = 441kcal and 52gms protein Last BM: 11/04/20 Wt: 152.8# (10/13/20)- no new weight Meds noted: D5@50, lactulose, thiamin Labs reviewed. Skin: stage II PU to R buttocks Nutrition diagnosis: Inadequate energy intake r/t dementia AEB PO intake continues <50% of meals. Goals: -PO intake =/>75% meals and snacks -Meet fluid needs -Stable weight DHS to UBW/IBW *Patient is not meeting or progressing towards meeting nutrition goals at this time. Interventions: -Will continue to honor food preferences with selective menus. -Continue Ensure TID. Recommendations: -Needs new weight as able. -MD consider adding appetite stimulant as medically feasible. -MD may consider enternal nutrition (PEG placement vs. NGT) as patient continue to not meet estimated energy needs via adequate oral intake. RD will follow-up 11/09/20
--- NOTE | 2020-11-05 14:44 | NUR ---
PATIENT CONFUSED AND WILL NOT LEAVE SCD'S ON EDUCATION PROVIDED.
--- NOTE | 2020-11-05 15:28 | MORECARE ---
CASE MANAGEMENT DISCHARGE SUMMARY PATIENT: REBECCA PORTILLO UNIT: [id number] ADM DATE: 10/11/20 AGE: 60 : 64 SEX: M ROOM/BED: D.2233 AUTHOR: SHERRILL NORMAN PHYSICIAN: REFERRING PHYSICIAN: JULIANNA LANE MD DATE OF SERVICE: 11/05/20 Discharge Plan Patient Name: REBECCA PORTILLO Facility: [facility]:[place] : 1960 Planned Disposition: Anticipated Discharge Date: Discharge Date: Expected LOS: Initial Reviewer: [id number] Initial Review Date: 10/11/2020 Generated: 11/05/20 4:28 pm Comments DCP- Discharge Planning Updated by [id number]: Rianna Kline on 11/05/20 1:[address] Patient Name: REBECCA PORTILLO Admission Status: ER Accout number: [id number] Admission Date: 10-11-2020 : 1960 Admission Diagnosis:METABOLIC ENCEPHALOPATHY Attending: JULIANNA JACK Current LOS: 25 Anticipated DC Date: Planned Disposition: Primary Insurance: [employer] [place] PPO Discharge Planning Comments: Received call from Lydia, patient's , and she would like him to be transferred to where they live. [facility] in [facility]. I have called [facility] to start transfer process. Waiting call back now. Analyst Business Analysis: Rianna Kline DCP- Discharge Planning Updated by [id number]: Rianna Kline on 11/05/20 11:[address] Patient Name: REBECCA PORTILLO Admission Status: ER Accout number: [id number] Admission Date: 10-11-2020 : 1960 Admission Diagnosis:METABOLIC ENCEPHALOPATHY Attending: JULIANNA JACK Current LOS: 25 Anticipated DC Date: Planned Disposition: Primary Insurance: [employer] [place] PPO Discharge Planning Comments: Attempted to call Lydia, pt , I left her a voice mail. We will need the names of a skilled facility that I can send a referral to for half-way placement. I will try to call her again this afternoon. Analyst Business Analysis: Rianna Kline DCP- Discharge Planning Updated by [id number]: Rianna Kline on 11/02/20 8:[address] Patient Name: REBECCA PORTILLO Admission Status: ER Accout number: [id number] Admission Date: 10-11-2020 : 1960 Admission Diagnosis:METABOLIC ENCEPHALOPATHY Attending: JULIANNA JACK Current LOS: 22 Anticipated DC Date: Planned Disposition: Primary Insurance: [facility] Discharge Planning Comments: CM SPOKE WITH JC AT [facility] CALL CENTER AND THEIR GLOBAL CMO WILL CALL OUR DOCTOR TODAY TO SEE IF THEY WILL ACCEPT THIS PATIENT FOR A LATERAL TRANSFER. Analyst Business Analysis: Rianna Kline DCP- Discharge Planning Updated by [id number]: Rianna Kline on 11/01/20 1:[address] Patient Name: REBECCA PORTILLO Admission Status: ER Accout number: [id number] Admission Date: 10-11-2020 : 1960 Admission Diagnosis:METABOLIC ENCEPHALOPATHY Attending: JULIANNA JACK Current LOS: 21 Anticipated DC Date: Planned Disposition: Primary Insurance: [employer] [place] PPO Discharge Planning Comments: CM called [facility] this morning requesting transfer of patient as requested by . Becky at [facility] transfer call center states they are at bed max and I would need to check back tomorrow. I notified and will call back in the morning. Analyst Business Analysis: Rianna Kline DCP- Discharge Planning Updated by [id number]: Rianna Kline on 10/31/20 12:[address] Patient Name: REBECCA PORTILLO Admission Status: ER Accout number: [id number] Admission Date: 10-11-2020 : 1960 Admission Diagnosis:METABOLIC ENCEPHALOPATHY Attending: JULIANNA JACK Current LOS: 20 Anticipated DC Date: Planned Disposition: Primary Insurance: [employer] [place] PPO Discharge Planning Comments: CALLED PATIENT AND LEFT HER A VOICE MAIL. WAITING CALL BACK ON PREFERENCE OF DETENTION. I HAVE FILLED OUT DINORA, WAITING WIFES CALL BACK FOR SIGNATURE AND THEN I CAN SUBMIT. CM TO FOLLOW AND ASSIST NEEDED. Analyst Business Analysis: Rianna Kline DCP- Discharge Planning Updated by [id number]: Rianna Kline on 10/30/20 11:[address] Patient Name: REBECCA PORTILLO Admission Status: ER Accout number: [id number] Admission Date: 10-11-2020 : 1960 Admission Diagnosis:METABOLIC ENCEPHALOPATHY Attending: JULIANNA JACK Current LOS: 19 Anticipated DC Date: Planned Disposition: Primary Insurance: [employer] [facility] Discharge Planning Comments: PATIENT VISITED TODAY. SHE WOULD LIKE TO TALK WITH NEUROLOGY ONCE THEY HAVE SEEN HER , SO SHE HAS A BETTER IDEA OF WHAT HE WILL NEED AND WILL HE GET BETTER. I ALSO GAVE HER A LIST OF NURSING FACILITIES TO LOOK AT IN CASE HE IS NOT GOING TO GET BETTER. IN ORDER FOR HIM TO RETURN BACK TO [facility] HE WOULD NEED TO BE ABLE TO FEED HIMSELF AND BE NO MORE THAN A ONE PERSON ASSIST. PATIENT'S LIVES APPROX 1.5 HRS AWAY FROM [place] BUT IS TRYING TO COME HERE TOMORROW ALSO. I HAVE PLACED HIS MEDICAL RECORDS FROM [facility] STAY ON THE CHART. CM TO FOLLOW AND ASSIST NEEDED. Analyst Business Analysis: Rianna Kline DCP- Discharge Planning Updated by [id number]: Rianna Kline on 10/29/20 2:[address] Patient Name: REBECCA PORTILLO Admission Status: ER Accout number: [id number] Admission Date: 10-11-2020 : 1960 Admission Diagnosis:METABOLIC ENCEPHALOPATHY Attending: JULIANNA AJCK Current LOS: 18 Anticipated DC Date: Planned Disposition: Primary Insurance: [employer] [facility] Discharge Planning Comments: CM SPOKE WITH PATIENT VIA TELEPHONE TODAY AT [phone]. SHE STATES HE WAS DIAGNOSED WITH [facility] LAST JUNE AT [facility] IN [place]. SHE IS REQUESTING A NEUROLOGIST SEE HER AND POTENTIAL TRANSFER TO [facility] IF POSSIBLE. I TOLD HER WE WOULD GET THE CONSULT AND GO FROM THERE. I EXPLAINED THAT A LATERAL TRANSFER WOULD REQUIRE AN ACCEPTING PHYSICIAN AT THE FACILITY AND FAMILY RESPONSIBLE FOR TRANSPORT. IT IS DIFFERENT CASE IF TRANSFER IS FOR HIGHER LEVEL OF CARE. I WILL CALL HER TOMORROW AFTER NEURO ENTERS THEIR RECOMMENDATIONS. CM TO FOLLOW AND ASSIST NEEDED. Analyst Business Analysis: Rianna Kline DCP- Discharge Planning Updated by [id number]: Rianna Kline on 10/26/20 12:[address] Patient Name: REBECCA PORTILLO Admission Status: ER Accout number: [id number] Admission Date: 10-11-2020 : 1960 Admission Diagnosis:METABOLIC ENCEPHALOPATHY Attending: JULIANNA JACK Current LOS: 15 Anticipated DC Date: Planned Disposition: [facility] Discharge Planning Comments: Patient is currently in a casi bed. I spoke with his Lydia today. She would like a provider to give her a call back at [phone]. She has requested a neurologist to see her . I talked with her about her husbands chances being very low of returning back to [facility]. They require their residents to be less than a one person assist and able to feed self. He does not meet criteria for [facility] at this time. I anticipate he will need [facility]. I will speak with the more about this after she talks with a provider here. CM to follow and assist as needed. Analyst Business Analysis: Rianna Kline DCP- Discharge Planning Updated by [id number]: Rianna Kline on 10/24/20 12:[address] Patient Name: REBECCA PORTILLO Admission Status: ER Accout number: [id number] Admission Date: 10-11-2020 : 1960 Admission Diagnosis:METABOLIC ENCEPHALOPATHY Attending: JULIANNA JACK Current LOS: 13 Anticipated DC Date: Planned Disposition: Primary Insurance: [facility] Discharge Planning Comments: SPOKE WITH JOHNNY AT [facility]. I AM FAXING HER UPDATES. SHE WILL HAVE TO reassess to see if they will accept him back. She said he can be no more than a one person assist. I have reordered physical therapy, I don't see pt in there since 10/18/20. CM will fax updates to [phone]. Their telephone number is [phone]. CM to follow and assist as needed. Analyst Business Analysis: Rianna Kline DCP- Discharge Planning Updated by [id number]: Rianna Kline on 10/19/20 2:[address] Patient Name: REBECCA PORTILLO Admission Status: ER Accout number: [id number] Admission Date: 10-11-2020 : 1960 Admission Diagnosis:METABOLIC ENCEPHALOPATHY Attending: JULIANNA JACK Current LOS: 8 Anticipated DC Date: Planned Disposition: Primary Insurance: [facility] PPO Discharge Planning Comments: UPDATED CLINICALS FAXED TO [facility]. I SPOKE WITH REECE SPRAGEU AND PATIENT IS BETTER MENTALLY AND MAY NOT NEED INPATIENT PSYCH. HE IS FROM [facility], I CONNTACTED THEM AND THEY WILL NEED TO DO A REASSESSMENT BEFORE THEY COULD TAKE HIM BACK. I ANTICIPATE HE WILL BE HERE OVER THE WEEKEND. CM TO FOLLOW AND ASSIST NEEDED. Analyst Business Analysis: Rianna Kline DCP- Discharge Planning Updated by [id number]: Teresa Alfredo on 10/18/20 12:[address] TELEPHONE CALL TO [facility].NO ANSWER. UNABLE TO LEAVE A MESSAGE. WILL CALL BACK. CXR WITH SUBSEGEMENTAL ATELECTASIS- START UPDRAFTS AND MUCINEX. SARS -COV2 RESULTS PENDING.B/P 89/54 - 109/56. PHYSICAL THERAPY WAS UNABLE TO AMBULATE SECONDARY TO CONFUSION, INABILITY TO FOLLOW COMMANDS OR ANSWER QUESTIONS. AWAIT THERAPY NOTES TODAY. AWAIT [facility] APPROVAL FOR ADMISSION TO [facility]. DCP- Discharge Planning Updated by [id number]: Rianna Kline on 10/17/20 11:[address] Patient Name: REBECCA PORTILLO Admission Status: ER Accout number: [id number] Admission Date: 10-11-2020 : 1960 Admission Diagnosis:METABOLIC ENCEPHALOPATHY Attending: JULIANNA JACK Current LOS: 6 Anticipated DC Date: Planned Disposition: Primary Insurance: [employer] [facility] Discharge Planning Comments: I HAVE CALLED [facility] FOR POSSIBLE NEED FOR INPATIENT PSYCH. I SPOKE WITH [facility]IR[facility]. I HAVE FAXED THEM THE CLINICALS AND WAITING CALL BACK. CM TO FOLLOW AND ASSIST NEEDED. I HAVE ORDERED A PCR COVID FOR PLACEMENT REASONS, IF [facility] AGREES TO TAKE HIM THEY MAY ONLY REQUIRE RAPID. I AM WAITING TO HEAR BACK. Analyst Business Analysis: Rianna Kline DCPIA - Discharge Planning Initial Assessment Updated by [id number]: Rianna Kline on 10/17/20 1:22 pm * PCP [facility] * Facility Name [facility] * Additional services required to return to the preadmission environment? Yes * Can the patient safely return to the preadmission environment? Yes * Has this patient been hospitalized within the prior 30 days at any hospital? No Last DP export: 11/05/20 11:25 a Patient Name: REBECCA PORTILLO Page 09104 at 1528 All edits/amendments must be made on the electronic document DICTATION DATE: 11/05/201527 EARLY MORNING BABYSITTER: ELSI 11/05/201527 RPT#: [id number] DC DATE: STATUS: ADM IN [facility] [address] [place] [address] END OF REPORT
--- NOTE | 2020-11-05 16:57 | MORECARE ---
CASE MANAGEMENT DISCHARGE SUMMARY PATIENT: REBECCA PORTILLO UNIT: [id number] ADM DATE: 10/11/20 AGE: 60 : 64 SEX: M ROOM/BED: D.2233 AUTHOR: SHERRILL NORMAN PHYSICIAN: REFERRING PHYSICIAN: JULIANNA LANE MD DATE OF SERVICE: 11/05/20 Discharge Plan Patient Name: REBECCA PORTILLO Facility: [facility]:[place] : 1960 Planned Disposition: Anticipated Discharge Date: Discharge Date: Expected LOS: Initial Reviewer: [id number] Initial Review Date: 10/11/2020 Generated: 11/05/20 5:56 pm Comments DCP- Discharge Planning Updated by [email or web address]: Rianna Kline on 11/05/20 1:[address] Patient Name: REBECCA PORTILLO Admission Status: ER Accout number: [id number] Admission Date: 10-11-2020 : 1960 Admission Diagnosis:METABOLIC ENCEPHALOPATHY Attending: JULIANNA JACK Current LOS: 25 Anticipated DC Date: Planned Disposition: Primary Insurance: [employer] [place] Discharge Planning Comments: Received call from Lydia, patient's , and she would like him to be transferred to where they live. [facility] in [facility]. I have called [facility] to start transfer process. Waiting call back now. Principal Statistical Scientist: Rianna Kline DCP- Discharge Planning Updated by [email or web address]: Rianna Kline on 11/05/20 11:[address] Patient Name: REBECCA PORTILLO Admission Status: ER Accout number: [id number] Admission Date: 10-11-2020 : 1960 Admission Diagnosis:METABOLIC ENCEPHALOPATHY Attending: JULIANNA JACK Current LOS: 25 Anticipated DC Date: Planned Disposition: Primary Insurance: [employer] [place] Discharge Planning Comments: Attempted to call Lydia, pt , I left her a voice mail. We will need the names of a skilled facility that I can send a referral to for long term placement. I will try to call her again this afternoon. Principal Statistical Scientist: Rianna Kline DCP- Discharge Planning Updated by [id number]: Rianna lKine on 11/02/20 8:[address] Patient Name: REBECCA PORTILLO Admission Status: ER Accout number: [id number] Admission Date: 10-11-2020 : 1960 Admission Diagnosis:METABOLIC ENCEPHALOPATHY Attending: JULIANNA JACK Current LOS: 22 Anticipated DC Date: Planned Disposition: Primary Insurance[facility] Discharge Planning Comments: CM SPOKE WITH JC AT [facility] AND THEIR ETCHER APPRENTICE WILL CALL OUR DOCTOR TODAY TO SEE IF THEY WILL ACCEPT THIS PATIENT FOR A LATERAL TRANSFER. Principal Statistical Scientist: Rianna Kline DCP- Discharge Planning Updated by [id number]: Rianna Kline on 11/01/20 1:[address] Patient Name: REBECCA PORTILLO Admission Status: ER Accout number: [id number] Admission Date: 10-11-2020 : 1960 Admission Diagnosis:METABOLIC ENCEPHALOPATHY Attending: JULIANNA JACK Current LOS: 21 Anticipated DC Date: Planned Disposition: Primary Insurance: [employer] [place] Discharge Planning Comments: CM called [facility] this morning requesting transfer of patient as requested by . Becky at [facility] call [facility] states they are at bed max and I would need to check back tomorrow. I notified and will call back in the morning. Principal Statistical Scientist: Rianna Kline DCP- Discharge Planning Updated by [email or web address]: Rianna Kline on 10/31/20 12:[address] Patient Name: REBECCA PORTILLO Admission Status: ER Accout number: [id number] Admission Date: 10-11-2020 : 1960 Admission Diagnosis:METABOLIC ENCEPHALOPATHY Attending: JULIANNA JACK Current LOS: 20 Anticipated DC Date: Planned Disposition: Primary Insurance: [employer] [place] Discharge Planning Comments: CALLED PATIENT AND LEFT HER A VOICE MAIL. WAITING CALL BACK ON [facility]. I HAVE FILLED OUT DINORA, WAITING WIFES CALL BACK FOR SIGNATURE AND THEN I CAN SUBMIT. CM TO FOLLOW AND ASSIST NEEDED. Principal Statistical Scientist: Rianna Kline DCP- Discharge Planning Updated by [email or web address]: Rianna Kline on 10/30/20 11:[address] Patient Name: REBECCA PORTILLO Admission Status: ER Accout number: [id number] Admission Date: 10-11-2020 : 1960 Admission Diagnosis:METABOLIC ENCEPHALOPATHY Attending: JULIANNA JACK Current LOS: 19 Anticipated DC Date: Planned Disposition: Primary Insurance: [employer] [facility] Discharge Planning Comments: PATIENT VISITED TODAY. SHE WOULD LIKE TO TALK WITH NEUROLOGY ONCE THEY HAVE SEEN HER , SO SHE HAS A BETTER IDEA OF WHAT HE WILL NEED AND WILL HE GET BETTER. I ALSO GAVE HER A LIST OF NURSING FACILITIES TO LOOK AT IN CASE HE IS NOT GOING TO GET BETTER. IN ORDER FOR HIM TO RETURN BACK TO [facility] HE WOULD NEED TO BE ABLE TO FEED HIMSELF AND BE NO MORE THAN A ONE PERSON ASSIST. PATIENT'S LIVES APPROX 1.5 HRS AWAY FROM [place] BUT IS TRYING TO COME HERE TOMORROW ALSO. I HAVE PLACED HIS MEDICAL RECORDS FROM [facility] STAY ON THE CHART. CM TO FOLLOW AND ASSIST NEEDED. Principal Statistical Scientist: Rianna Kline DCP- Discharge Planning Updated by [email or web address]: Rianna Kline on 10/29/20 2:[address] Patient Name: REBECCA PORTILLO Admission Status: ER Accout number: [id number] Admission Date: 10-11-2020 : 1960 Admission Diagnosis:METABOLIC ENCEPHALOPATHY Attending: JULIANNA JACK Current LOS: 18 Anticipated DC Date: Planned Disposition: Primary Insurance: [employer] [facility] Discharge Planning Comments: CM SPOKE WITH PATIENT VIA TELEPHONE TODAY AT [phone]. SHE STATES HE WAS DIAGNOSED WITH [facility] LAST JUNE AT [facility] IN [place]. SHE IS REQUESTING A NEUROLOGIST SEE HER AND POTENTIAL TRANSFER TO [facility] IF POSSIBLE. I TOLD HER WE WOULD GET THE CONSULT AND GO FROM THERE. I EXPLAINED THAT A LATERAL TRANSFER WOULD REQUIRE AN ACCEPTING PHYSICIAN AT THE FACILITY AND FAMILY RESPONSIBLE FOR TRANSPORT. IT IS DIFFERENT CASE IF TRANSFER IS FOR HIGHER LEVEL OF CARE. I WILL CALL HER TOMORROW AFTER NEURO ENTERS THEIR RECOMMENDATIONS. CM TO FOLLOW AND ASSIST NEEDED. Principal Statistical Scientist: Rianna Kline DCP- Discharge Planning Updated by [id number]: Rianna Kline on 10/26/20 12:[address] Patient Name: REBECCA PORTILLO Admission Status: ER Accout number: [id number] Admission Date: 10-11-2020 : 1960 Admission Diagnosis:METABOLIC ENCEPHALOPATHY Attending: JULIANNA JACK Current LOS: 15 Anticipated DC Date: Planned Disposition: Primary [facility]: [facility] Discharge Planning Comments: Patient is currently in a casi bed. I spoke with his Lydia today. She would like a provider to give her a call back at [phone]. She has requested a neurologist to see her . I talked with her about her husbands chances being very low of returning back to [facility]. They require their residents to be less than a one person assist and able to feed self. He does not meet criteria for [facility] at this time. I anticipate he will need [facility]. I will speak with the more about this after she talks with a provider here. CM to follow and assist as needed. Principal Statistical Scientist: Rianna Kline DCP- Discharge Planning Updated by [id number]: Rianna Kline on 10/24/20 12:[address] Patient Name: REBECCA PORTILLO Admission Status: ER Accout number: [id number] Admission Date: 10-11-2020 : 1960 Admission Diagnosis:METABOLIC ENCEPHALOPATHY Attending: JULIANNA JACK Current LOS: 13 Anticipated DC Date: Planned Disposition: Primary Insurance: [facility] Discharge Planning Comments: SPOKE WITH JOHNNY AT [facility]. I AM FAXING HER UPDATES. SHE WILL HAVE TO reassess to see if they will accept him back. She said he can be no more than a one person assist. I have reordered physical therapy, I don't see pt in there since 10/18/20. CM will fax updates to [phone]. Their telephone number is [phone]. CM to follow and assist as needed. Principal Statistical Scientist: Rinana Kline DCP- Discharge Planning Updated by [email or web address]: Rianna Kline on 10/19/20 2:[address] Patient Name: REBECCA PORTILLO Admission Status: ER Accout number: [id number] Admission Date: 10-11-2020 : 1960 Admission Diagnosis:METABOLIC ENCEPHALOPATHY Attending: JULIANNA JACK Current LOS: 8 Anticipated DC Date: Planned Disposition: Primary Insurance: [facility] PPO Discharge Planning Comments: UPDATED CLINICALS FAXED TO [facility]. I SPOKE WITH REECE SPRAGUE AND PATIENT IS BETTER MENTALLY AND MAY NOT NEED INPATIENT PSYCH. HE IS FROM [facility], I CONNTACTED THEM AND THEY WILL NEED TO DO A REASSESSMENT BEFORE THEY COULD TAKE HIM BACK. I ANTICIPATE HE WILL BE HERE OVER THE WEEKEND. CM TO FOLLOW AND ASSIST NEEDED. Principal Statistical Scientist: Rianna Kline DCP- Discharge Planning Updated by [email or web address]: Teresamarita Alfredo on 10/18/20 12:[address] TELEPHONE CALL TO [facility].NO ANSWER. UNABLE TO LEAVE A MESSAGE. WILL CALL BACK. CXR WITH SUBSEGEMENTAL ATELECTASIS- START UPDRAFTS AND MUCINEX. SARS -COV2 RESULTS PENDING.B/P 89/54 - 109/56. PHYSICAL THERAPY WAS UNABLE TO AMBULATE SECONDARY TO CONFUSION, INABILITY TO FOLLOW COMMANDS OR ANSWER QUESTIONS. AWAIT THERAPY NOTES TODAY. AWAIT [facility] APPROVAL FOR ADMISSION TO [facility]. DCP- Discharge Planning Updated by [id number]: Rianna Kline on 10/17/20 11:[address] Patient Name: REBECCA PORTILLO Admission Status: ER Accout number: [id number] Admission Date: 10-11-2020 : 1960 Admission Diagnosis:METABOLIC ENCEPHALOPATHY Attending: JULIANNA JACK Current LOS: 6 Anticipated DC Date: Planned Disposition: Primary Insurance: [facility] Discharge Planning Comments: I HAVE CALLED [facility] FOR POSSIBLE NEED FOR INPATIENT PSYCH. I SPOKE WITH [facility]. I HAVE FAXED THEM THE CLINICALS AND WAITING CALL BACK. CM TO FOLLOW AND ASSIST NEEDED. I HAVE ORDERED A PCR COVID FOR PLACEMENT REASONS, IF [facility] AGREES TO TAKE HIM THEY MAY ONLY REQUIRE RAPID. I AM WAITING TO HEAR BACK. Principal Statistical Scientist: Rianna Kline DCPIA - Discharge Planning Initial Assessment Updated by [id number]: Rianna Kline on 10/17/20 1:22 pm * PCP [facility] * Facility Name [facility] * Additional services required to return to the preadmission environment? Yes * Can the patient safely return to the preadmission environment? Yes * Has this patient been hospitalized within the prior 30 days at any hospital? No External Providers External Provider: [facility] Next Contact Date: Service Request Date: Service Type: Resolution: Reviewer: Comments: Last DP export: 3/15/21 1:28 p Patient Name: REBECCA PORTILLO Page 73258 at 1657 All edits/amendments must be made on the electronic document DICTATION DATE: 11/05/201656 FEATHER SAWYER: ELSI 11/05/201656 RPT#: [id number] DC DATE: STATUS: ADM IN [facility] [address] [place] [address] END OF REPORT
[2020-11-05 17:00] VITALS: BP 122/61
[2020-11-05 20:00] VITALS: BP 118/710
[2020-11-05 22:45] VITALS: BP 109/63
[2020-11-05 23:48] LABS: CALC OSMOLALITY 267 mosm/kg (275-300); CALCIUM 8.4 mg/dL (8.5-10.1); CARBON DIOXIDE 23.2 mmol/L (21.0-32.0); CHLORIDE - SERUM 103 mmol/L (98-107); GLUCOSE 138 mg/dL (74-106); SODIUM 132 mmol/L (136-145); UREA NITROGEN 16 mg/dL (7-18)
[2020-11-05 23:51] LABS: CREATININE - SERUM 0.9 mg/dL (0.6-1.3); POTASSIUM - SERUM 3.3 mmol/L (3.5-5.1); eGFR NON AFRICAN AMERICAN > 90 mL/min (90-120)
[2020-11-05 23:53] LABS: HEMATOCRIT 38.8 % (42.0-54.0); LYMPHOCYTES 9.8 % (15-50); MCH 30.7 pg (26.0-34.0); MCHC 33.5 g/dL (31.0-37.0); MCV 91.5 fL (80.0-100.0); MEAN PLATELET VOLUME 9.3 fL (7.4-10.4); NEUTROPHILS 85.5 % (40-80); RBC 4.24 10x6/uL (4.20-6.10); RDW 14.5 % (11.5-14.5); WBC 5.4 10x3/uL (4.8-10.8)
[2020-11-05 23:54] LABS: ALBUMIN 2.2 g/dL (3.4-5.0); ALKALINE PHOSPHATASE 107 U/L (30-120); ALT (SGPT) 32 U/L (10-68); BILIRUBIN - TOTAL 0.41 mg/dL (0.2-1.3); PLATELET COUNT 168 10x3/uL (130-400); PROTEIN - SERUM 6.5 g/dL (6.4-8.2)
[2020-11-06] VITALS: BP 123/69
[2020-11-06 00:19] LABS: BILIRUBIN NEGATIVE (NEGATIVE); KETONE NEGATIVE (NEGATIVE); NITRITE NEGATIVE (NEGATIVE); UROBILINOGEN NORMAL mg/dL (< 2)
[2020-11-06 00:20] LABS: BACTERIA FEW HPF (NONE SEEN); SQUAMOUS EPITHELIAL 0-5 HPF (0-4); WHITE CELLS - URINE 0-5 HPF (0-1)
[2020-11-06 04:00] VITALS: BP 111/66
[2020-11-06 06:11] LABS: BASOPHILS 0.1 % (0-2); EOSINOPHILS 0 % (0-7); HEMATOCRIT 38.2 % (42.0-54.0); HEMOGLOBIN 12.8 g/dL (13.5-17.5); IMMATURE GRANULOCYTES 0.8 % (0-5); LYMPHOCYTES 5.5 % (15-50); MCH 30.1 pg (26.0-34.0); MCHC 33.5 g/dL (31.0-37.0); MCV 89.9 fL (80.0-100.0); MONOCYTES 7.8 % (2-11); NEUTROPHIL ABS# 6.18 10x3/uL (1.78-5.38); NEUTROPHILS 85.8 % (40-80); PLATELET COUNT 162 10x3/uL (130-400); RBC 4.25 10x6/uL (4.20-6.10); RDW 14.4 % (11.5-14.5)
[2020-11-06 06:22] LABS: WBC 7.2 10x3/uL (4.8-10.8)
[2020-11-06 06:46] LABS: ALBUMIN 2.1 g/dL (3.4-5.0); ALKALINE PHOSPHATASE 104 U/L (30-120); ALT (SGPT) 33 U/L (10-68); BILIRUBIN - TOTAL 0.42 mg/dL (0.2-1.3); CALC OSMOLALITY 268 mosm/kg (275-300); CALCIUM 8.4 mg/dL (8.5-10.1); CARBON DIOXIDE 21.6 mmol/L (21.0-32.0); CHLORIDE - SERUM 102 mmol/L (98-107); CREATININE - SERUM 0.7 mg/dL (0.6-1.3); GLUCOSE 119 mg/dL (74-106); MAGNESIUM - SERUM 2.1 mg/dL (1.8-2.4); PHOSPHOROUS 2.5 mg/dL (2.5-4.9); PROTEIN - SERUM 6.3 g/dL (6.4-8.2); SODIUM 132 mmol/L (136-145); UREA NITROGEN 20 mg/dL (7-18); eGFR NON AFRICAN AMERICAN > 90 mL/min (90-120)
--- NOTE | 2020-11-06 07:21 | NUR ---
PATIENT SPIKED HIGH FEVER, HIGH HR, HIGH RR. LETHARGIC. RECIEVED ORDERD FROM OPERATIONS INTERN. STRAIGHT CATHED FOR URINE SAMPLE. UNABLE TO PRODUCE SPUTUM SAMPLE AT THIS TIME. IV ABX STARTED AFTER BLOOD CX DRAWN. TYLENOL SUPP ADMINISTERED FOR FEVER PER OCT.
[2020-11-06 08:26] VITALS: BP 102/59
[2020-11-06 11:45] LABS: C-REACTIVE PROTEIN 5.3 mg/dL (0.0-0.9)
[2020-11-06 12:43] VITALS: BP 106/64
[2020-11-06 13:33] LABS: ERYTHROCYTE SEDIMENTATION RATE 25 mm/hr (0-20)
--- NOTE | 2020-11-06 14:31 | NUR ---
PATIENT ABDOMEN DISTENDED, ESPECIALLY ON THE LEFT SIDE, PT DOES NOT EXPRESS ANY TENDERNESS OR PAIN WITH PALPATION. WHEN ASKED IF HURTS PATIENT DID NOT RESPOND. IS AWAKE JUST NOT ANSWERING QUESTIONS. PATIENT HAS DIME SIZED SORE ON RT BUTT CHEEK, AREA AROUND BLANCHABLE AND HARD ON EDGES, TISSUE SHOWING. BLADDER SCANNED SHOWS PATIENT HAS 349 IN BLADDER. AWAITING ORDERS FROM CELESTINE JARQUIN. CONTINUE WITH PLAN OF CARE
--- NOTE | 2020-11-06 15:26 | NUR ---
Erick JARQUIN HERE MAKING ROUND REC'D NEW ORDERS FOR STAT CT ABD/PELVIS WITHOUT CONTRAST AT THIS TIME.
[2020-11-06 17:08] LABS: MONO NEGATIVE (NEGATIVE)
[2020-11-06 17:46] VITALS: BP 106/65
[2020-11-06 19:06] LABS: CKMB 4.6 U/L (0.0-3.6); TROPONIN-I 0.053 ng/mL (0.000-0.060)
[2020-11-06 19:18] LABS: CREATINE KINASE 1914 UL (21-232)
[2020-11-06 20:00] VITALS: BP 123/58
[2020-11-06 23:55] LABS: CKMB 1.5 U/L (0.0-3.6); CREATINE KINASE 1649 UL (21-232); TROPONIN-I 0.048 ng/mL (0.000-0.060)
[2020-11-07] VITALS: BP 98/54
[2020-11-07 04:00] VITALS: BP 133/59
--- NOTE | 2020-11-07 05:30 | NUR ---
PATIENT PIV TO RIGHT FOREARM LEAKING. NEW 18G PIV STARTED TO LEFT FOREARM. BLOOD CX SHOWED YEAST. REPORTED TO MOBILE BATTERY TECHNICIAN, CONTINUE VANC AND ZOSYN IV.
[2020-11-07 06:24] LABS: BASOPHILS 0.3 % (0-2); EOSINOPHILS 0 % (0-7); HEMATOCRIT 35.5 % (42.0-54.0); HEMOGLOBIN 11.9 g/dL (13.5-17.5); IMMATURE GRANULOCYTES 0.7 % (0-5); LYMPHOCYTE ABS# 1.01 10x3/uL (1.32-3.57); MCH 30.4 pg (26.0-34.0); MCHC 33.5 g/dL (31.0-37.0); MCV 90.6 fL (80.0-100.0); MEAN PLATELET VOLUME 10.5 fL (7.4-10.4); MONOCYTES 12.1 % (2-11); NEUTROPHIL ABS# 4.85 10x3/uL (1.78-5.38); NEUTROPHILS 71.9 % (40-80); RBC 3.92 10x6/uL (4.20-6.10); WBC 6.8 10x3/uL (4.8-10.8)
[2020-11-07 06:31] LABS: PLATELET COUNT 118 10x3/uL (130-400)
[2020-11-07 06:56] LABS: ALBUMIN 1.9 g/dL (3.4-5.0); ALKALINE PHOSPHATASE 98 U/L (30-120); CALC OSMOLALITY 265 mosm/kg (275-300); CARBON DIOXIDE 23.7 mmol/L (21.0-32.0); CHLORIDE - SERUM 101 mmol/L (98-107); CKMB 3.3 U/L (0.0-3.6); GLUCOSE 118 mg/dL (74-106); PROTEIN - SERUM 5.3 g/dL (6.4-8.2); SODIUM 131 mmol/L (136-145); TROPONIN-I 0.053 ng/mL (0.000-0.060); UREA NITROGEN 17 mg/dL (7-18)
[2020-11-07 06:59] LABS: ALT (SGPT) 48 U/L (10-68); CREATINE KINASE 1870 UL (21-232); CREATININE - SERUM 0.9 mg/dL (0.6-1.3); eGFR NON AFRICAN AMERICAN > 90 mL/min (90-120)
--- NOTE | 2020-11-07 07:32 | NUR ---
REC'D IN BED AWAKE AND ALERT. RESP EVEN AND UNLABORED WITH NO DISTRESS NOTED CAN EXPRESS NEEDS AND WANTS. NO C/O NOTED OR VOICED. ASSESSMENT COMPLETED AT THIS TIME. C/L IN REACH AT BEDSIDE.
[2020-11-07 08:14] VITALS: BP 113/52
[2020-11-07 11:04] LABS: INR 1.48 (0.85-1.17); PROTIME 16.6 SECONDS (11.6-15.0)
[2020-11-07 12:19] VITALS: BP 112/74
--- NOTE | 2020-11-07 14:41 | NUR ---
CM SPOKE WITH ESTELLA, PATIENT , SHE WANTS TRANSFER TO [facility] IN [place]. I HAVE CALLED THEM AND WAITING CALL BACK TO SEE IF DR. KUMAR IS ACCEPTING THIS PATIENT. CM TO FOLLOW AND ASSIST NEEDED.
--- NOTE | 2020-11-07 14:43 | NUR ---
SOUMYA SPOKE WITH DENISE AT [facility] IN [place] AND HAS FAXED CLINICAL INFORMATION TO THEM. WAITING CALL BACK TO SEE IF PATIENT'S DOCTOR DR. KUMAR IS ACCEPTING HIM AT THAT FACLITLY. CM TO FOLLOW AND ASSIST NEEDED.
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
[2020-11-07 17:05] VITALS: BP 125/53
--- NOTE | 2020-11-07 19:55 | NUR ---
PATIENT IN BED RESTING. FREE FROM SIGNS OF DISTRESS. CONFUSED. CALL LIGHT IN REACH. WILL CONTINUE TO MONITOR.
[2020-11-07 20:00] VITALS: BP 130/65
[2020-11-08] VITALS: BP 126/62
--- NOTE | 2020-11-08 02:36 | NUR ---
PT WAS ASLEEP IN BED UPON ARRIVAL FOR ASSESSMENT. EASY TO AROUSE. ALERT AND ORIENTED TO SELF. NO PAIN NOR DISTRESS NOTED AT THIS TIME. PT HAS REMAINED AFEBRILE SO FAR. CALL LIGHT IN REACH WITH BED IN LOWEST POSITION.
[2020-11-08 04:00] VITALS: BP 120/58
[2020-11-08 06:00] LABS: HEMATOCRIT 33.8 % (42.0-54.0); HEMOGLOBIN 11.2 g/dL (13.5-17.5); LYMPHOCYTE ABS# 1.04 10x3/uL (1.32-3.57); MCH 29.9 pg (26.0-34.0); MCHC 33.1 g/dL (31.0-37.0); MCV 90.4 fL (80.0-100.0); MEAN PLATELET VOLUME 10.5 fL (7.4-10.4); NEUTROPHIL ABS# 3.06 10x3/uL (1.78-5.38); PLATELET COUNT 121 10x3/uL (130-400); RBC 3.74 10x6/uL (4.20-6.10); WBC 5.4 10x3/uL (4.8-10.8)
[2020-11-08 06:06] LABS: INR 1.25 (0.85-1.17); PROTIME 14.5 SECONDS (11.6-15.0)
[2020-11-08 06:57] LABS: ALBUMIN 1.7 g/dL (3.4-5.0); ALKALINE PHOSPHATASE 97 U/L (30-120); ALT (SGPT) 46 U/L (10-68); BILIRUBIN - TOTAL 0.28 mg/dL (0.2-1.3); CALC OSMOLALITY 279 mosm/kg (275-300); CALCIUM 8.2 mg/dL (8.5-10.1); CHLORIDE - SERUM 105 mmol/L (98-107); CREATININE - SERUM 0.9 mg/dL (0.6-1.3); GLUCOSE 133 mg/dL (74-106); MAGNESIUM - SERUM 2.2 mg/dL (1.8-2.4); POTASSIUM - SERUM 3.8 mmol/L (3.5-5.1); PROTEIN - SERUM 5.7 g/dL (6.4-8.2); SODIUM 138 mmol/L (136-145); UREA NITROGEN 19 mg/dL (7-18); eGFR NON AFRICAN AMERICAN > 90 mL/min (90-120)
[2020-11-08 07:04] LABS: PHOSPHOROUS 1.5 mg/dL (2.5-4.9)
--- NOTE | 2020-11-08 07:18 | NUR ---
RECIEVED BEDSIDE REPORT. PATIENT IN BED SLEEPING. FREE FROM SIGNS OF DISTRESS. IV INFUSING PER MAR. CALL LIGHT IN REACH. BED LOW POSITION. WILL CONTINUE TO MONITOR.
[2020-11-08 08:14] VITALS: BP 99/61
--- NOTE | 2020-11-08 11:09 | MORECARE ---
CASE MANAGEMENT DISCHARGE SUMMARY PATIENT: REBECCA PORTILLO UNIT: [id number] ADM DATE: 10/11/20 AGE: 60 : 64 SEX: M ROOM/BED: D.2233 AUTHOR: ESTER,DOC PHYSICIAN: REFERRING PHYSICIAN: JULIANNA LANE MD DATE OF SERVICE: 11/08/20 Case Management Discharge Planning Summary COMMENTS ENTERED DATE: 11/08/20 10:57 CT COMMENT TYPE: Discharge Planning REVIEWER: Rianna Kline CM SPOKE WITH PALLAVI AT [facility] IN [place] AND REFAXED CLINICALS TO [phone]. WAITING CALL BACK TO SEE IF THEY ARE GOING TO ACCEPT PATIENT. CM TO FOLLOW AND ASSIST NEEDED. ENTERED DATE: 11/07/20 13:38 CT COMMENT TYPE: Discharge Planning REVIEWER: Rianna Kline CM SPOKE WITH ESTELLA, PATIENT , SHE WANTS TRANSFER TO [facility] IN [place]. I HAVE CALLED THEM AND WAITING CALL BACK TO SEE IF DR. KUMAR IS ACCEPTING THIS PATIENT. CM TO FOLLOW AND ASSIST NEEDED. DCP REVIEW SUMMARY ANTICIPATED D/C DATE: EXPECTED LOS : CASE STATUS: DCP Initiated INITIAL REVIEW: 11/06/2020 INITIAL REVIEWER: Rianna Kline FINAL DISCHARGE DISPOSITION: : FINAL REVIEWER: FINAL REVIEW DATE: DCP Focus Questions & Answers DCP REV -DCP Review Added on: 11/06/20 4:09 pm QUESTION: ANSWER DCP Screen High Risk Factors: : Decreased adherence to treatment plan DCP Evaluation Patient's ability to cope with chronic illness : d. No chronic illness Mental health screen: : No mental health history Would patient like to participate in any Care Coordination programs (if applicable): : Not applicable DCP Re-evaluation Would patient like to participate in any Care Coordination programs (if applicable): : Not applicable PROVIDER NETWORKING REVIEW DATE: 11/06/2020 SERVICE TYPE: Acute Care Facility REVIEWER: Rianna Kline PROVIDER: FINAL PROVIDER? : FINAL DATE/TIME: CT PATIENT: REBECCA PORTILLO ENCOUNTER: [id number] MEDICAL RECORD#: [id number] ADMISSION DATE: 10/11/2020 DISCHARGE DATE: ATTENDING MD: JULIANNA MARIE : AGE: 60 MARITAL STATUS: U DC PLAN ID: [id number] FACILITY: [facility] PRINTED ON: 11/08/20 11:09 CT All edits/amendments must be made on the electronic document DICTATION DATE: 11/08/20 110 SOIL EXPERT: ELSI 11/08/20 110 RPT#: [id number] DC DATE: STATUS: ADM IN [facility] [address] [place] [address] END OF REPORT
[2020-11-08 11:12] LABS: EBV VIRAL CAPSID AB IGG >600.0 U/mL (0.0-17.9); EBV VIRAL CAPSID AB IGM <36.0 U/mL (0.0-35.9)
[2020-11-08 11:31] LABS: LYMPHOCYTES 19 % (15-50); MONOCYTES 22 % (2-11); NEUTROPHILS 51 % (40-80); PLATELET ESTIMATE NORMAL
[2020-11-08 11:32] LABS: ANISOCYTOSIS OCC
--- NOTE | 2020-11-08 12:00 | MORECARE ---
CASE MANAGEMENT DISCHARGE SUMMARY PATIENT: REBECCA PORTILLO UNIT: [id number] ADM DATE: 10/11/20 AGE: 60 : 64 SEX: M ROOM/BED: D.2233 AUTHOR: ESTER,DOC PHYSICIAN: REFERRING PHYSICIAN: JULIANNA LANE MD DATE OF SERVICE: 11/08/20 Case Management Discharge Planning Summary COMMENTS ENTERED DATE: 11/08/20 10:57 CT COMMENT TYPE: Discharge Planning REVIEWER: Rianna Kline CM SPOKE WITH PALLAVI AT [facility] IN [place] AND REFAXED CLINICALS TO [phone]. WAITING CALL BACK TO SEE IF THEY ARE GOING TO ACCEPT PATIENT. CM TO FOLLOW AND ASSIST NEEDED. ENTERED DATE: 11/07/20 13:38 CT COMMENT TYPE: Discharge Planning REVIEWER: Rianna Kline CM SPOKE WITH ESTELLA, PATIENT , SHE WANTS TRANSFER TO [facility] IN [place]. I HAVE CALLED THEM AND WAITING CALL BACK TO SEE IF DR. KUMRA IS ACCEPTING THIS PATIENT. CM TO FOLLOW AND ASSIST NEEDED. DCP REVIEW SUMMARY ANTICIPATED D/C DATE: EXPECTED LOS : CASE STATUS: DCP Initiated INITIAL REVIEW: 11/06/2020 INITIAL REVIEWER: Rianna Kline FINAL DISCHARGE DISPOSITION: : FINAL REVIEWER: FINAL REVIEW DATE: DCP Focus Questions & Answers DCP REV -DCP Review Added on: 11/06/20 4:09 pm QUESTION: ANSWER DCP Screen High Risk Factors: : Decreased adherence to treatment plan DCP Evaluation Patient's ability to cope with chronic illness : d. No chronic illness Mental health screen: : No mental health history Would patient like to participate in any Care Coordination programs (if applicable): : Not applicable DCP Re-evaluation Would patient like to participate in any Care Coordination programs (if applicable): : Not applicable PROVIDER NETWORKING REVIEW DATE: 11/06/2020 SERVICE TYPE: Acute Care Facility REVIEWER: Rianna Kline PROVIDER: FINAL PROVIDER? : FINAL DATE/TIME: CT PATIENT: REBECCA PORTILLO ENCOUNTER: [id number] MEDICAL RECORD#: [id number] ADMISSION DATE: 10/11/2020 DISCHARGE DATE: ATTENDING MD: JULIANNA MARIE : AGE: 60 MARITAL STATUS: U DC PLAN ID: [id number] FACILITY: [facility] PRINTED ON: 11/08/20 12:00 CT All edits/amendments must be made on the electronic document DICTATION DATE: 11/08/201199 VENETIAN BLIND WORKER: ELSI 11/08/20 1200 RPT#: [id number] DC DATE: STATUS: ADM IN [facility] [address] [place] [address] END OF REPORT
[2020-11-08 12:24] VITALS: BP 93/63
--- NOTE | 2020-11-08 13:18 | NUR ---
ASLEEP. AROUSES TO VOICE AND STIMULI. REFUSING TO EAT AND TAKE MEDS. BED LOW POSITION, CALL LIGHT IN REACH, BED LOW POSITION. WILL CONTINUE TO MONITOR.
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
--- NOTE | 2020-11-08 17:20 | NUR ---
OT NOTE: PT WAS LETHARIC. PT COMPLETED BUE PROM TOLERATED. [id number] THANK YOU,RACHELE KHAN
--- NOTE | 2020-11-08 17:25 | MORECARE ---
CASE MANAGEMENT DISCHARGE SUMMARY PATIENT: REBECCA PORTILLO UNIT: [id number] ADM DATE: 10/11/20 AGE: 60 : 64 SEX: M ROOM/BED: D.2233 AUTHOR: ESTER,DOC PHYSICIAN: REFERRING PHYSICIAN: JULIANNA LANE MD DATE OF SERVICE: 11/08/20 Case Management Discharge Planning Summary COMMENTS ENTERED DATE: 11/08/20 17:17 CT COMMENT TYPE: Discharge Planning REVIEWER: Rianna Kline Received call back from dr. Kumar in [place] and they are not accepting this patient. I have talked with the and once he is medically stable she would like him to go to inpatient rehab at [facility]. I will call tomorrow and get their contact information. CM to follow and assist as needed. ENTERED DATE: 11/08/20 10:57 CT COMMENT TYPE: Discharge Planning REVIEWER: Rianna Kline CM SPOKE WITH PALLAVI AT [facility] IN [place] AND REFAXED CLINICALS TO [phone]. WAITING CALL BACK TO SEE IF THEY ARE GOING TO ACCEPT PATIENT. CM TO FOLLOW AND ASSIST NEEDED. ENTERED DATE: 11/07/20 13:38 CT COMMENT TYPE: Discharge Planning REVIEWER: Rianna Kline CM SPOKE WITH ESTELLA, PATIENT , SHE WANTS TRANSFER TO [facility] IN [place]. I HAVE CALLED THEM AND WAITING CALL BACK TO SEE IF DR. KUMAR IS ACCEPTING THIS PATIENT. CM TO FOLLOW AND ASSIST NEEDED. DCP REVIEW SUMMARY ANTICIPATED D/C DATE: EXPECTED LOS : CASE STATUS: DCP Initiated INITIAL REVIEW: 11/06/2020 INITIAL REVIEWER: Rianna Kline FINAL DISCHARGE DISPOSITION: : FINAL REVIEWER: FINAL REVIEW DATE: DCP Focus Questions & Answers DCP REV -DCP Review Added on: 11/06/20 4:09 pm QUESTION: ANSWER DCP Screen High Risk Factors: : Decreased adherence to treatment plan DCP Evaluation Patient's ability to cope with chronic illness : d. No chronic illness Mental health screen: : No mental health history Would patient like to participate in any Care Coordination programs (if applicable): : Not applicable DCP Re-evaluation Would patient like to participate in any Care Coordination programs (if applicable): : Not applicable PROVIDER NETWORKING REVIEW DATE: 11/06/2020 SERVICE TYPE: Acute Care Facility REVIEWER: Rianna Kline PROVIDER: FINAL PROVIDER? : FINAL DATE/TIME: CT PATIENT: REBECCA PORTILLO ENCOUNTER: [id number] MEDICAL RECORD#: [id number] ADMISSION DATE: 10/11/2020 DISCHARGE DATE: ATTENDING MD: JULIANNA MARIE : AGE: 60 MARITAL STATUS: U DC PLAN ID: [id number] FACILITY: [facility] PRINTED ON: 11/08/20 17:25 CT All edits/amendments must be made on the electronic document DICTATION DATE: 11/08/201724 DIE CASTING MACHINE OPERATOR: ELSI 11/08/201724 RPT#: [id number] DC DATE: STATUS: ADM IN [facility] [address] [place] [address] END OF REPORT
[2020-11-08 18:46] VITALS: BP 95/65
[2020-11-08 20:00] VITALS: BP 108/53
[2020-11-09] VITALS: BP 108/68
--- NOTE | 2020-11-09 03:00 | NUR ---
INCONTINENT VOID/BM EVIDENT. CHANGED PADDING AND QUINTON CARE PROVIDED. MEPILEX TO COCCYX REMOVED, AREA CLEANSED AND NEW MEPILEX APPLIED. PT HAS LARGE NON-BLANCHABLE AREA ON COCCYX, SKIN INTACT. RIGHT LOWER BUTTOCK HAS AN AREA OF TISSUE LOSS, NICKEL-SIZED. PT TURNED TO LEFT SIDE, CPOC.
[2020-11-09 04:00] VITALS: BP 99/58
--- NOTE | 2020-11-09 04:24 | NUR ---
I have reviewed this patient and I concur with the Shift Assessment completed by the Licensed Practical Nurse today this shift.
[2020-11-09 06:09] LABS: BASOPHILS 0.2 % (0-2); EOSINOPHILS 0.1 % (0-7); HEMATOCRIT 33.7 % (42.0-54.0); HEMOGLOBIN 11.1 g/dL (13.5-17.5); IMMATURE GRANULOCYTES 0.5 % (0-5); LYMPHOCYTES 14.4 % (15-50); MCH 29.8 pg (26.0-34.0); MCHC 32.9 g/dL (31.0-37.0); MCV 90.6 fL (80.0-100.0); MEAN PLATELET VOLUME 10.3 fL (7.4-10.4); MONOCYTES 15.2 % (2-11); NEUTROPHILS 69.6 % (40-80); PLATELET COUNT 131 10x3/uL (130-400); RBC 3.72 10x6/uL (4.20-6.10); RDW 15.3 % (11.5-14.5)
[2020-11-09 06:10] LABS: WBC 8.3 10x3/uL (4.8-10.8)
[2020-11-09 06:27] LABS: ALBUMIN 1.7 g/dL (3.4-5.0); ALKALINE PHOSPHATASE 101 U/L (30-120); ALT (SGPT) 45 U/L (10-68); BILIRUBIN - TOTAL 0.42 mg/dL (0.2-1.3); CALC OSMOLALITY 283 mosm/kg (275-300); CALCIUM 7.9 mg/dL (8.5-10.1); CARBON DIOXIDE 25.1 mmol/L (21.0-32.0); CHLORIDE - SERUM 108 mmol/L (98-107); CREATININE - SERUM 0.9 mg/dL (0.6-1.3); GLUCOSE 121 mg/dL (74-106); MAGNESIUM - SERUM 2.4 mg/dL (1.8-2.4); POTASSIUM - SERUM 3.5 mmol/L (3.5-5.1); PROTEIN - SERUM 5.3 g/dL (6.4-8.2); SODIUM 141 mmol/L (136-145); UREA NITROGEN 19 mg/dL (7-18); eGFR NON AFRICAN AMERICAN > 90 mL/min (90-120)
[2020-11-09 06:32] LABS: PHOSPHOROUS 3.4 mg/dL (2.5-4.9)
[2020-11-09 06:54] LABS: INR 1.26 (0.85-1.17); PROTIME 14.6 SECONDS (11.6-15.0)
--- NOTE | 2020-11-09 09:00 | NUR ---
AROUSES TO STIMULI AND COMPLAINT WITH TAKING MEDICATIONS WITH THICKENED LIQUID. IVF INFUSING TO RUE WITH NO S/S OF INFECTION/INFILTRATION. TELEMETRY INTACT SCD'S IN BUT UNABLE TO DEMONSTRATED USE OF INCENTIVE SPIROMETRY DUE TO CONFUSION. REUQIRES ASSSIT WITH MEALS AND WILL ONLY DRINK NECTOER THICK LIQUIDS
[2020-11-09 09:23] VITALS: BP 108/67
[2020-11-09 13:12] LABS: EHRLICHIA CHAFF IGG Negative (Neg:<1:64); EHRLICHIA CHAFF IGM Negative (Neg:<1:20); HGE IGG TITER Negative (Neg:<1:64); HGE IGM TITER Negative (Neg:<1:20)
--- NOTE | 2020-11-09 14:00 | NUR ---
Nutrition follow-up: Diet order: Regular with nectar thick liquids; Ensure with meals PO Intake on 11/08/20 was 75% of two meals; po intake is improving. ProcalAmine PPN continues @ 75 ml/hr Labs reviewed Admit Wt: 153# +BM Recommendations: Appetite stimulant RDN follow-up: 11/14/20
[2020-11-09 20:33] VITALS: BP 128/67
[2020-11-10] VITALS (9 sets, daily range): BP systolic 86–130; BP diastolic 46–66; Ht 182.9 cm; Wt 78.1 kg
--- NOTE | 2020-11-10 03:00 | NUR ---
I have reviewed this patient and I concur with the Shift Assessment completed by the Licensed Practical Nurse today this shift.
[2020-11-10 06:22] LABS: BASOPHILS 0.5 % (0-2); EOSINOPHILS 0.5 % (0-7); HEMATOCRIT 31.1 % (42.0-54.0); HEMOGLOBIN 10.2 g/dL (13.5-17.5); IMMATURE GRANULOCYTES 0.4 % (0-5); LYMPHOCYTE ABS# 1.59 10x3/uL (1.32-3.57); LYMPHOCYTES 15.6 % (15-50); MCH 30.1 pg (26.0-34.0); MCHC 32.8 g/dL (31.0-37.0); MCV 91.7 fL (80.0-100.0); MEAN PLATELET VOLUME 10.4 fL (7.4-10.4); MONOCYTES 10.6 % (2-11); NEUTROPHIL ABS# 7.37 10x3/uL (1.78-5.38); NEUTROPHILS 72.4 % (40-80); PLATELET COUNT 129 10x3/uL (130-400); RBC 3.39 10x6/uL (4.20-6.10); RDW 15.6 % (11.5-14.5); WBC 10.2 10x3/uL (4.8-10.8)
[2020-11-10 06:47] LABS: ALBUMIN 1.5 g/dL (3.4-5.0); ALKALINE PHOSPHATASE 82 U/L (30-120); ALT (SGPT) 35 U/L (10-68); BILIRUBIN - TOTAL 0.36 mg/dL (0.2-1.3); CALC OSMOLALITY 288 mosm/kg (275-300); CALCIUM 8.2 mg/dL (8.5-10.1); CARBON DIOXIDE 25.3 mmol/L (21.0-32.0); CHLORIDE - SERUM 111 mmol/L (98-107); CREATININE - SERUM 0.9 mg/dL (0.6-1.3); GLUCOSE 115 mg/dL (74-106); MAGNESIUM - SERUM 2.5 mg/dL (1.8-2.4); POTASSIUM - SERUM 3.2 mmol/L (3.5-5.1); PROTEIN - SERUM 5.5 g/dL (6.4-8.2); SODIUM 143 mmol/L (136-145); UREA NITROGEN 20 mg/dL (7-18); eGFR NON AFRICAN AMERICAN > 90 mL/min (90-120)
[2020-11-10 06:48] LABS: INR 1.29 (0.85-1.17); PROTIME 14.9 SECONDS (11.6-15.0)
[2020-11-10 07:04] LABS: PHOSPHOROUS 2.5 mg/dL (2.5-4.9)
[2020-11-10 13:26] LABS: SARS-CoV-2 ANTIGEN NEGATIVE- SARS-COV-2 (NEGATIVE)
--- NOTE | 2020-11-10 14:19 | NUR ---
PT UPDATED ABOUT UPCOMING PROCEDURES AND PT CONDITION, SPOUSE STATES THAT PT DID NOT TAKE LITHIUM AT HOME AND WONDERED ABOUT GETTING IT DC'D.
[2020-11-10 18:29] LABS: BASOPHILS 0.7 % (0-2); EOSINOPHILS 0.6 % (0-7); HEMATOCRIT 31.7 % (42.0-54.0); HEMOGLOBIN 10.4 g/dL (13.5-17.5); IMMATURE GRANULOCYTES 0.6 % (0-5); LYMPHOCYTE ABS# 1.47 10x3/uL (1.32-3.57); LYMPHOCYTES 13.7 % (15-50); MCHC 32.8 g/dL (31.0-37.0); MCV 91.4 fL (80.0-100.0); MEAN PLATELET VOLUME 10.5 fL (7.4-10.4); MONOCYTES 10.1 % (2-11); NEUTROPHIL ABS# 7.97 10x3/uL (1.78-5.38); NEUTROPHILS 74.3 % (40-80); PLATELET COUNT 142 10x3/uL (130-400); RBC 3.47 10x6/uL (4.20-6.10); RDW 15.5 % (11.5-14.5); WBC 10.7 10x3/uL (4.8-10.8)
--- NOTE | 2020-11-10 18:31 | NUR ---
RAPID RESPONSE CALLED ON PT REGARDING MENTAL STATUS CHANGE. HE IS MINIMALLY RESPONSIVE - MOANS TO PAIN, AND PULLS AWAY FROM PAIN. NOT CURRENTLY FOLLOWING COMMANDS. EYES 2+ PERRLA. PER NURSE PTS TEMP WAS UP TO 102 AROUND 1500 WHICH HE RECIEVED TYLENOL FOR AND HAS ICE PACKS ON. TEMP NOW IS 99.0 AXILLARY. ABG SHOW LACTIC OVER 2. CBC, CMP, LACTIC ACID, AND CHEST XR ORDERED. PER ANGEL BECKER, TRANSFER PT TO ICU AND CONSULT DR PARK FOR HYPOXIA AND CRICIAL CARE MANAGEMENT. PT NOW TRANSFERRED TO ICU VIA BED ACCOMPANIED BY HOSPITAL STAFF WITH ALL PERSONAL ITEMS. ANGEL BECKER, AT BEDSIDE TO SEE PT. DR PARK PAGED. WAITING FOR CALLBACK.
[2020-11-10 18:35] LABS: CALC OSMOLALITY 287 mosm/kg (275-300); CALCIUM 8.2 mg/dL (8.5-10.1); CARBON DIOXIDE 24.7 mmol/L (21.0-32.0); CHLORIDE - SERUM 110 mmol/L (98-107); GLUCOSE 141 mg/dL (74-106); POTASSIUM - SERUM 3.3 mmol/L (3.5-5.1); SODIUM 142 mmol/L (136-145); UREA NITROGEN 20 mg/dL (7-18); eGFR NON AFRICAN AMERICAN 81 mL/min (90-120)
[2020-11-10 18:40] LABS: ALBUMIN 1.5 g/dL (3.4-5.0); ALKALINE PHOSPHATASE 100 U/L (30-120); ALT (SGPT) 36 U/L (10-68); BILIRUBIN - TOTAL 0.28 mg/dL (0.2-1.3); PROTEIN - SERUM 5.6 g/dL (6.4-8.2)
--- NOTE | 2020-11-10 19:36 | NUR ---
PAGED ROSITA PINA REGARDING INFILTRATED IV TO RT ARM, SWELLING AND ERYTHEMA NOTED ALONG WITH BROKEN SKIN. ORDERS RECEIVED.
--- NOTE | 2020-11-10 20:11 | NUR ---
PAGED DR KELLY REGARDING PT'S 'S QUESTIONS ABOUT HIS PROCEDURE, STATES HE WILL CALL HER TOMORROW.
--- NOTE | 2020-11-10 20:12 | NUR ---
CALLED PT'S , ESTELLA AND INFORMED HER THAT DR KELLY WOULD CALL AND ANSWER HER QUESTIONS TOMORROW. VERBALIZED UNDERSTANDING.
[2020-11-11] VITALS (24 sets, daily range): BP systolic 96–134; BP diastolic 59–767
[2020-11-11 04:47] LABS: BASOPHILS 0.5 % (0-2); EOSINOPHILS 0.4 % (0-7); HEMATOCRIT 33.3 % (42.0-54.0); HEMOGLOBIN 10.7 g/dL (13.5-17.5); IMMATURE GRANULOCYTES 0.6 % (0-5); LYMPHOCYTE ABS# 1.72 10x3/uL (1.32-3.57); LYMPHOCYTES 15.3 % (15-50); MCH 29.8 pg (26.0-34.0); MCHC 32.1 g/dL (31.0-37.0); MCV 92.8 fL (80.0-100.0); MEAN PLATELET VOLUME 10.9 fL (7.4-10.4); MONOCYTES 8.8 % (2-11); NEUTROPHIL ABS# 8.32 10x3/uL (1.78-5.38); NEUTROPHILS 74.4 % (40-80); PLATELET COUNT 149 10x3/uL (130-400); RBC 3.59 10x6/uL (4.20-6.10); RDW 15.8 % (11.5-14.5); WBC 11.2 10x3/uL (4.8-10.8)
[2020-11-11 04:56] LABS: INR 1.3 (0.85-1.17)
[2020-11-11 05:00] LABS: ALBUMIN 1.5 g/dL (3.4-5.0); ALKALINE PHOSPHATASE 92 U/L (30-120); ALT (SGPT) 33 U/L (10-68); BILIRUBIN - TOTAL 0.42 mg/dL (0.2-1.3); CALC OSMOLALITY 286 mosm/kg (275-300); CALCIUM 8.1 mg/dL (8.5-10.1); CARBON DIOXIDE 26.9 mmol/L (21.0-32.0); CHLORIDE - SERUM 110 mmol/L (98-107); CREATININE - SERUM 0.9 mg/dL (0.6-1.3); GLUCOSE 109 mg/dL (74-106); MAGNESIUM - SERUM 2.5 mg/dL (1.8-2.4); PHOSPHOROUS 2.3 mg/dL (2.5-4.9); POTASSIUM - SERUM 3.6 mmol/L (3.5-5.1); PROTEIN - SERUM 5.9 g/dL (6.4-8.2); SODIUM 142 mmol/L (136-145); UREA NITROGEN 20 mg/dL (7-18); eGFR NON AFRICAN AMERICAN > 90 mL/min (90-120)
--- NOTE | 2020-11-11 05:52 | NUR ---
AM LABS REVIEWED, NOTHING TO TREAT PER ELECTROLYTE PROTOCOL.
--- NOTE | 2020-11-11 08:57 | NUR ---
DR HUA ROUNDED ON PT. NOTIFIED PHYSICIAN THAT PT IS NOT ALERT ENOUGH TO ATTEMPT ANYTHING PO AT THIS TIME, HE AGREED. HE STATED HE FELT LIKE THE PT LOOKS BETTER TODAY THAN HE DID YESTERDAY. WANTS PT TO STAY IN ICU. ORDERS RECEIVED TO RESTART ZOSYN AND VANC.
--- NOTE | 2020-11-11 11:32 | NUR ---
PTS AT BEDSIDE. UPDATES PROVIDED.
--- NOTE | 2020-11-11 16:32 | NUR ---
PTS MOTHER AT BEDSIDE, UPDATES PROVIDED.
--- NOTE | 2020-11-11 18:35 | MORECARE ---
CASE MANAGEMENT DISCHARGE SUMMARY PATIENT: REBECCA BUI UNIT: [id number] ADM DATE: 10/11/20 AGE: 60 : 64 SEX: M ROOM/BED: D.2314 AUTHOR: ESTER,DOC PHYSICIAN: REFERRING PHYSICIAN: JULIANNA LANE MD DATE OF SERVICE: 11/11/20 Case Management Discharge Planning Summary COMMENTS ENTERED DATE: 11/11/20 18:31 CT COMMENT TYPE: Discharge Planning REVIEWER: [facility] CM team received Hospice Consult. Telephone call to patient's , Estella Bui ([phone]) at 1405 on 11 November 2020. Mrs. Bui would like to speak to a hospice customer development representative and possibly place patient in hospice care with the caveat of transferring the patient from [facility] to an inpatient hospice facility near [place], [place]. Mrs. Bui consented to speaking to [facility] as they have a [place], [place] inpatient facility. SERVANDO telephonically signed and placed in chart. Spoke with Fleming of [facility]. Fleming stated that she will speak with Mrs. Bui and explain hospice services. If Mrs. Bui agrees to hospice she will meet [facility] RN tomorrow in ICU. Clinicals faxed to [facility]. 182 on 11 November 2020, spoke with Mrs. Bui. Mrs. Bui stated that she will meet with physicians tomorrow in ICU before making a decision regarding hospice. CM will continue to follow and will assist as needed with dc plans/needs. ENTERED DATE: 11/08/20 17:17 CT COMMENT TYPE: Discharge Planning REVIEWER: Rianna Kline Received call back from dr. Kumar in [place] and they are not accepting this patient. I have talked with the and once he is medically stable she would like him to go to inpatient rehab at [facility]. I will call tomorrow and get their contact information. CM to follow and assist as needed. ENTERED DATE: 11/08/20 10:57 CT COMMENT TYPE: Discharge Planning REVIEWER: Rianna Kline CM SPOKE WITH PALLAVI AT [facility] IN [place] AND REFAXED CLINICALS TO [phone]. WAITING CALL BACK TO SEE IF THEY ARE GOING TO ACCEPT PATIENT. CM TO FOLLOW AND ASSIST NEEDED. ENTERED DATE: 11/07/20 13:38 CT COMMENT TYPE: Discharge Planning REVIEWER: Rianna Kline CM SPOKE WITH ESTELLA, PATIENT , SHE WANTS TRANSFER TO [facility] IN [place]. I HAVE CALLED THEM AND WAITING CALL BACK TO SEE IF DR. KUMAR IS ACCEPTING THIS PATIENT. CM TO FOLLOW AND ASSIST NEEDED. DCP REVIEW SUMMARY ANTICIPATED D/C DATE: EXPECTED LOS : CASE STATUS: DCP Initiated INITIAL REVIEW: 11/06/2020 INITIAL REVIEWER: Rianna Kline FINAL DISCHARGE DISPOSITION: : FINAL REVIEWER: FINAL REVIEW DATE: DCP Focus Questions & Answers DCP REV -DCP Review Added on: 11/06/20 4:09 pm QUESTION: ANSWER DCP Screen High Risk Factors: : Decreased adherence to treatment plan DCP Evaluation Patient's ability to cope with chronic illness : d. No chronic illness Mental health screen: : No mental health history Would patient like to participate in any Care Coordination programs (if applicable): : Not applicable DCP Re-evaluation Would patient like to participate in any Care Coordination programs (if applicable): : Not applicable PROVIDER NETWORKING REVIEW DATE: 11/06/2020 SERVICE TYPE: Acute Care Facility REVIEWER: Rianna Kline PROVIDER: FINAL PROVIDER? : FINAL DATE/TIME: CT PATIENT: REBECCA BUI ENCOUNTER: [id number] MEDICAL RECORD#: [id number] ADMISSION DATE: 10/11/2020 DISCHARGE DATE: ATTENDING MD: JULIANNA MARIE : AGE: 60 MARITAL STATUS: U DC PLAN ID: [id number] FACILITY: [facility] PRINTED ON: 11/11/20 18:35 CT All edits/amendments must be made on the electronic document DICTATION DATE: 11/11/201834 GRADES 7 8 TUTOR: ELSI 11/11/201834 RPT#: [id number] DC DATE: STATUS: ADM IN [facility] [address] [place] [address] END OF REPORT
[2020-11-12] VITALS (14 sets, daily range): BP systolic 99–115; BP diastolic 54–80
[2020-11-12 03:51] LABS: BASOPHILS 0.5 % (0-2); EOSINOPHILS 1.7 % (0-7); HEMATOCRIT 30.2 % (42.0-54.0); HEMOGLOBIN 9.9 g/dL (13.5-17.5); IMMATURE GRANULOCYTES 0.7 % (0-5); LYMPHOCYTES 14.3 % (15-50); MCH 29.6 pg (26.0-34.0); MCHC 32.8 g/dL (31.0-37.0); NEUTROPHIL ABS# 6.18 10x3/uL (1.78-5.38); NEUTROPHILS 73.8 % (40-80); PLATELET COUNT 175 10x3/uL (130-400); RBC 3.34 10x6/uL (4.20-6.10); RDW 15.8 % (11.5-14.5); WBC 8.4 10x3/uL (4.8-10.8)
[2020-11-12 04:07] LABS: MCV 90.4 fL (80.0-100.0)
[2020-11-12 04:14] LABS: INR 1.38 (0.85-1.17); PROTIME 15.8 SECONDS (11.6-15.0)
[2020-11-12 04:15] LABS: ALBUMIN 1.3 g/dL (3.4-5.0); ALKALINE PHOSPHATASE 84 U/L (30-120); ALT (SGPT) 27 U/L (10-68); BILIRUBIN - TOTAL 0.33 mg/dL (0.2-1.3); CALC OSMOLALITY 287 mosm/kg (275-300); CALCIUM 7.9 mg/dL (8.5-10.1); CARBON DIOXIDE 23.9 mmol/L (21.0-32.0); CHLORIDE - SERUM 112 mmol/L (98-107); CREATINE KINASE 83 UL (21-232); CREATININE - SERUM 0.8 mg/dL (0.6-1.3); GLUCOSE 99 mg/dL (74-106); MAGNESIUM - SERUM 2.5 mg/dL (1.8-2.4); POTASSIUM - SERUM 3.3 mmol/L (3.5-5.1); PROTEIN - SERUM 5.6 g/dL (6.4-8.2); SODIUM 143 mmol/L (136-145); UREA NITROGEN 21 mg/dL (7-18); eGFR NON AFRICAN AMERICAN > 90 mL/min (90-120)
[2020-11-12 04:18] LABS: PHOSPHOROUS 3.7 mg/dL (2.5-4.9)
[2020-11-12 04:23] LABS: D-DIMER-QUANTITATIVE 3.67 ug/mLFEU (0.20-0.54)
--- NOTE | 2020-11-12 07:06 | NUR ---
SPOKE WITH AND SHE IS AWARE OF HOSPICE CONSULT AND WILL BE HERE TODAY. SPOUSE REPORTS SHE WANTS TO MAKE HIM COMFORTABLE AND SHE IS AWARE HE IS NOT WANTING TO TAKE HIS MEDS PO. SHE WILL BE HERE LATER TO DISCUSS FURTHER
--- NOTE | 2020-11-12 10:40 | NUR ---
Nutrition follow-up: Discussed during IDT team rounds Pt NPO for possible surgery ProcalAmine PPN still infusing @ 75 ml/hr Labs reviewed Wt: 172# PO intake from 11/09/20: 75%, 25%, 25% No intake recorded since transferred to ICU If medically feasible, recommend NGT vs PEG tube placement and TF started to better meet pts estimated nutritional needs. RDN follow-up: 11/14/20
--- NOTE | 2020-11-12 14:00 | MORECARE ---
CASE MANAGEMENT DISCHARGE SUMMARY PATIENT: REBECCA BUI UNIT: [id number] ADM DATE: 10/11/20 AGE: 60 : 64 SEX: M ROOM/BED: D.2314 AUTHOR: ESTER,DOC PHYSICIAN: REFERRING PHYSICIAN: JULIANNA LANE MD DATE OF SERVICE: 11/12/20 Case Management Discharge Planning Summary COMMENTS ENTERED DATE: 11/11/20 18:31 CT COMMENT TYPE: Discharge Planning REVIEWER: [facility] CM team received Hospice Consult. Telephone call to patient's , Estella Bui ([phone]) at 1405 on 11 November 2020. Mrs. Bui would like to speak to a hospice loss control representative and possibly place patient in hospice care with the caveat of transferring the patient from [facility] to an inpatient hospice facility near [place], [place]. Mrs. Bui consented to speaking to [facility] as they have a [place], [place] inpatient facility. SERVANDO telephonically signed and placed in chart. Spoke with Fleming of [facility]. Fleming stated that she will speak with Mrs. Bui and explain hospice services. If Mrs. Bui agrees to hospice she will meet [facility] RN tomorrow in ICU. Clinicals faxed to [facility]. 182 on 11 November 2020, spoke with Mrs. Bui. Mrs. Bui stated that she will meet with physicians tomorrow in ICU before making a decision regarding hospice. CM will continue to follow and will assist as needed with dc plans/needs. ENTERED DATE: 11/08/20 17:17 CT COMMENT TYPE: Discharge Planning REVIEWER: Rianna Kline Received call back from dr. Kumar in [place] and they are not accepting this patient. I have talked with the and once he is medically stable she would like him to go to inpatient rehab at [facility]. I will call tomorrow and get their contact information. CM to follow and assist as needed. ENTERED DATE: 11/08/20 10:57 CT COMMENT TYPE: Discharge Planning REVIEWER: Rianna Kline CM SPOKE WITH PALLAVI AT [facility] IN [place] AND REFAXED CLINICALS TO [phone]. WAITING CALL BACK TO SEE IF THEY ARE GOING TO ACCEPT PATIENT. CM TO FOLLOW AND ASSIST NEEDED. ENTERED DATE: 11/07/20 13:38 CT COMMENT TYPE: Discharge Planning REVIEWER: Rianna Kline CM SPOKE WITH ESTELLA, PATIENT , SHE WANTS TRANSFER TO [facility] IN [place]. I HAVE CALLED THEM AND WAITING CALL BACK TO SEE IF DR. KUMAR IS ACCEPTING THIS PATIENT. CM TO FOLLOW AND ASSIST NEEDED. DCP REVIEW SUMMARY ANTICIPATED D/C DATE: EXPECTED LOS : CASE STATUS: DCP Initiated INITIAL REVIEW: 11/06/2020 INITIAL REVIEWER: Rianna Kline FINAL DISCHARGE DISPOSITION: : FINAL REVIEWER: FINAL REVIEW DATE: DCP Focus Questions & Answers DCP REV -DCP Review Added on: 11/06/20 4:09 pm QUESTION: ANSWER DCP Screen High Risk Factors: : Decreased adherence to treatment plan DCP Evaluation Patient's ability to cope with chronic illness : d. No chronic illness Mental health screen: : No mental health history Would patient like to participate in any Care Coordination programs (if applicable): : Not applicable DCP Re-evaluation Would patient like to participate in any Care Coordination programs (if applicable): : Not applicable PROVIDER NETWORKING REVIEW DATE: 11/06/2020 SERVICE TYPE: Acute Care Facility REVIEWER: Rianna Kline PROVIDER: FINAL PROVIDER? : FINAL DATE/TIME: CT REVIEW DATE: 11/12/2020 SERVICE TYPE: Hospice REVIEWER: Waleska Moore PATIENT: REBECCA BUI ENCOUNTER: [id number] MEDICAL RECORD#: [id number] ADMISSION DATE: 10/11/2020 DISCHARGE DATE: 11/12/2020 ATTENDING MD: JULIANNA MARIE : AGE: 60 MARITAL STATUS: U DC PLAN ID: [id number] FACILITY: [facility] PRINTED ON: 11/12/20 13:59 CT All edits/amendments must be made on the electronic document DICTATION DATE: 11/12/20 135 CONSTRUCTION ELECTRICIAN: ELSI 11/12/20 1359 RPT#: [id number] DC DATE:11/12/20 STATUS: DIS IN [facility] [address] [place] [address] END OF REPORT
[2020-11-12 15:11] LABS: RMSF IGM 0.22 index (0.00-0.89)
--- NOTE | 2020-11-12 15:39 | MORECARE ---
CASE MANAGEMENT DISCHARGE SUMMARY PATIENT: REBECCA BUI UNIT: [id number] ADM DATE: 10/11/20 AGE: 60 : 64 SEX: M ROOM/BED: D.2314 AUTHOR: ESTER,DOC PHYSICIAN: REFERRING PHYSICIAN: JULIANNA LANE MD DATE OF SERVICE: 11/12/20 Case Management Discharge Planning Summary COMMENTS ENTERED DATE: 11/11/20 18:31 CT COMMENT TYPE: Discharge Planning REVIEWER: [facility] CM team received Hospice Consult. Telephone call to patient's , Estella Bui ([phone]) at 1405 on 11 November 2020. Mrs. Bui would like to speak to a hospice automotive leasing sales representative and possibly place patient in hospice care with the caveat of transferring the patient from [facility] to an inpatient hospice facility near [place], [place]. Mrs. Bui consented to speaking to [facility] as they have a [place], [place] inpatient facility. SERVANDO telephonically signed and placed in chart. Spoke with Fleming of [facility]. Fleming stated that she will speak with Mrs. Bui and explain hospice services. If Mrs. Bui agrees to hospice she will meet [facility] RN tomorrow in ICU. Clinicals faxed to [facility]. 182 on 11 November 2020, spoke with Mrs. Bui. Mrs. Bui stated that she will meet with physicians tomorrow in ICU before making a decision regarding hospice. CM will continue to follow and will assist as needed with dc plans/needs. ENTERED DATE: 11/08/20 17:17 CT COMMENT TYPE: Discharge Planning REVIEWER: Rianna Kline Received call back from dr. Kumar in [place] and they are not accepting this patient. I have talked with the and once he is medically stable she would like him to go to inpatient rehab at [facility]. I will call tomorrow and get their contact information. CM to follow and assist as needed. ENTERED DATE: 11/08/20 10:57 CT COMMENT TYPE: Discharge Planning REVIEWER: Rianna Kline CM SPOKE WITH PALLAVI AT [facility] IN [place] AND REFAXED CLINICALS TO [phone]. WAITING CALL BACK TO SEE IF THEY ARE GOING TO ACCEPT PATIENT. CM TO FOLLOW AND ASSIST NEEDED. ENTERED DATE: 11/07/20 13:38 CT COMMENT TYPE: Discharge Planning REVIEWER: Rianna Kline CM SPOKE WITH ESTELLA, PATIENT , SHE WANTS TRANSFER TO [facility] IN [place]. I HAVE CALLED THEM AND WAITING CALL BACK TO SEE IF DR. KUMAR IS ACCEPTING THIS PATIENT. CM TO FOLLOW AND ASSIST NEEDED. DCP REVIEW SUMMARY ANTICIPATED D/C DATE: EXPECTED LOS : CASE STATUS: DCP Initiated INITIAL REVIEW: 11/06/2020 INITIAL REVIEWER: Rianna Kline FINAL DISCHARGE DISPOSITION: : FINAL REVIEWER: FINAL REVIEW DATE: DCP Focus Questions & Answers DCP REV -DCP Review Added on: 11/06/20 4:09 pm QUESTION: ANSWER DCP Screen High Risk Factors: : Decreased adherence to treatment plan DCP Evaluation Patient's ability to cope with chronic illness : d. No chronic illness Mental health screen: : No mental health history Would patient like to participate in any Care Coordination programs (if applicable): : Not applicable DCP Re-evaluation Would patient like to participate in any Care Coordination programs (if applicable): : Not applicable PROVIDER NETWORKING REVIEW DATE: 11/06/2020 SERVICE TYPE: Acute Care Facility REVIEWER: Rianna Kline PROVIDER: FINAL PROVIDER? : FINAL DATE/TIME: CT REVIEW DATE: 11/12/2020 SERVICE TYPE: Hospice REVIEWER: Waleska Moore PATIENT: REBECCA BUI ENCOUNTER: [id number] MEDICAL RECORD#: [id number] ADMISSION DATE: 10/11/2020 DISCHARGE DATE: 11/12/2020 ATTENDING MD: JULIANNA MARIE : AGE: 60 MARITAL STATUS: U DC PLAN ID: [id number] FACILITY: [facility] PRINTED ON: 11/12/20 15:39 CT All edits/amendments must be made on the electronic document DICTATION DATE: 11/12/201538 AIRPLANE ENGINEER: ELSI 11/12/201538 RPT#: [id number] DC DATE:11/12/20 STATUS: DIS IN [facility] [address] [place] [address] END OF REPORT
[2020-11-14 13:12] LABS: AMPHOTERICIN B MIC 0.5 ug/mL (())
[2020-11-15 15:12] LABS: F. TULARENSIS - IGG Negative (Negative); F. TULARENSIS - IGM Negative (Negative)
== END 2020-11-12 13:54 | disposition hospice, inpatient (51) | DRG 640 ==
LOC: D.ER 13:00 → D.EDHOLD 15:56 → D.MS 15:56 → D.EDHOLD 19:38 → D.MS 10-13 15:12 → D.ICU 11-10 18:34
PROVIDERS: Emergency Medicine; Family Medicine; Family Medicine Adult Medicine; Internal Medicine Cardiovascular Disease; Psychiatry & Neurology Psychiatry; ADMIT Family Medicine; ATTEND Family Medicine
DX: E51.2 Wernicke's encephalopathy (principal); J96.01 Acute respiratory failure with hypoxia; A41.9 Sepsis, unspecified organism; E72.20 Disorder of urea cycle metabolism, unspecified; E87.0 Hyperosmolality and hypernatremia; G72.81 Critical illness myopathy; E44.0 Moderate protein-calorie malnutrition; T80.211A Bloodstream infection due to central venous catheter, initial encounter; F31.9 Bipolar disorder, unspecified; K74.60 Unspecified cirrhosis of liver; K21.9 Gastro-esophageal reflux disease without esophagitis; G89.29 Other chronic pain; F41.1 Generalized anxiety disorder; E83.41 Hypermagnesemia; D64.9 Anemia, unspecified; Z68.20 Body mass index [BMI] 20.0-20.9, adult; L89.150 Pressure ulcer of sacral region, unstageable